=== PATIENT | female | born 1955 | race Caucasian/White ===

== ENCOUNTER → 2024-01-17 14:46 | Outpatient (REF) | payer MEDICARE, SELFPAY | LOC: HWWDC 14:46 | PROVIDERS: ATTENDING PHYSICIAN Family Medicine | DX: Z12.31 Encounter for screening mammogram for malignant neoplasm of breast (principal) | CPT/HCPCS: 77063; 77067 ==

== ENCOUNTER → 2024-05-11 10:48 | Outpatient (REF) | payer MEDICARE, SELFPAY | LOC: RAD 10:48 | PROVIDERS: ATTENDING PHYSICIAN Family Medicine | DX: R53.83 Other fatigue (principal); R06.09 Other forms of dyspnea | CPT/HCPCS: 71046 ==

== ENCOUNTER 2024-05-15 12:37 | Inpatient (IN) | payer MEDICARE, SELFPAY ==
[2024-05-15] VITALS (14 sets, daily range): BP systolic 110–138; BP diastolic 61–92; BMI 40.3
[2024-05-15 07:17] LABS: % Basophils 1.5 % (0-2); % Lymphocytes 21.4 % (20.5-51.1); % Monocytes 8.5 % (1.7-9.3); % Neutrophils 60.6 % (42.2-75.2); Absolute Basophils 0.2 10^3/uL (0-0.2); Absolute Eosinophils 0.8 10^3/uL (0-0.7); Absolute Immature Granulocytes 0.1 10^3/uL (0-0.05); Absolute Lymphocytes 2.6 10^3/uL (1.2-3.4); Absolute Neutrophils 7.2 10^3/uL (1.4-6.5); Hematocrit 36.2 % (37.0-47.0); Hemoglobin 12.1 g/dL (12.0-16.0); Mean Corp Hgb Conc. 33.4 g/dL (33.0-37.0); Mean Corpuscular Volume 89.8 fL (81.0-99.0); Mean Platelet Volume 10.3 fL (7.4-10.4); Nucleated Red Blood Cells % 0.3 %; Platelet Count 339 10^3/uL (130-400); Red Blood Cell Count 4.03 10^6/uL (4.20-5.40); Red Cell Dist. Width 13.6 % (11.5-14.5); White Blood Cell Count 11.9 10^3/uL (4.8-10.8)
[2024-05-15] MEDS: DUONEB 3 ML INH ×3 (07:28→20:44)
[2024-05-15] MEDS: NSS 1000 IV (07:28)
[2024-05-15 07:30] LABS: ALT (SGPT) 16 U/L (0-35); AST (SGOT) 20 U/L (14-36); Albumin 3.6 g/dl (3.5-5.0); Alkaline Phosphatase 83 U/L (38-126); Blood Urea Nitrogen 15 mg/dl (7-17); Calcium 9.2 mg/dl (8.4-10.2); Carbon Dioxide 22 mmol/L (22-30); Chloride 106 mmol/L (98-107); Estimated Creatinine Clearance 70 ml/min; Glucose 199 mg/dl (70-99); Sodium 139 mmol/L (135-145); eGFR > 60.00
--- NOTE | 2024-05-15 07:46 | ED.GENMED ---
History of Present Illness
General
Chief Complaint: Breathing Problem
Source: patient, records and physician
Exam Limitations: none
Time Seen by Provider: 05/15/24 07:07
Nursing documentation reviewed up to this point in time: agreed with
History of Present Illness
History of Present Illness:
Patient is a 68-year-old female Who presents to the emergency department with worsening dyspnea after being diagnosed with a right infrahilar pneumonia on May 11 and at that time started on doxycycline and Cefpodoxime. Patient has a
nonproductive cough. Patient denies fever or chills. Patient short of breath at rest and with any exertion. Patient denies chest pain. Patient admits decreased appetite but no nausea, vomiting or diarrhea. Patient denies any leg pain or
swelling.
Past History
Past History
ED Past Medical History: None
ED Past Surgical History: None
Patient has exhibited threatening behavior?: No
Social History
Tobacco: Smoker
Living: alone
Employment: Employed
Review of Systems
Review of Systems
All Other Systems: ROS reviewed and negative except as documented in HPI and ROS
Constitutional: Reports fatigue; Denies fever or chills
EENT: Reports no symptoms
Respiratory: Reports cough and trouble breathing
Cardiac: Reports no symptoms
ABD/GI: Reports no symptoms
: Reports no symptoms
Musculoskeletal: Reports no symptoms
Skin: Reports no symptoms
Neurological: Reports no symptoms
Hematologic/Lymphatic: Reports no symptoms
Phy Exam
Physical Exam
Physical Exam:
Physical Exam
General: mild distress, alert and appropriate, well nourished, well hydrated
HENT: Normocephalic, supple with no lymphadenopathy, no thyromegaly
Eyes: Clear sclera, conjuctiva without injection
Heart: Regular rhythm and rate. No S3, S4. No murmur. No NVD
Lungs: mild respiratory distress, no stridor, lung sounds are coarse with scattered rhonchi and end expiratory wheezes but otherwise equal bilaterally
Abdomen: Soft, nontender, no organomegaly, no CVA tenderness, BS good
Neuro: Alert and oriented x 3, CN II - XII intact, no motor focality, no cerebellar dysfunction
Skin: no rash
Psychiatric: well kept. interactive and cooperative
Extremities: No edema, cyanosis, tenderness
Scores
Heart Failure Risk
Heart Failure Risk Score: Not Applicable
Heart Score for Chest Pain Patients
STEMI patient?: Not applicable
Withdrawal Assessment of Alcohol
Withdrawal Assessment Completed?: Not applicable
Course
Orders/Labs/Results
Orders:
Orders
05/15/24 07:06
CMP [Comprehensive Metabolic Panel] Urgent
Complete Blood Count/With Diff Urgent
05/15/24 07:13
0.9% Sodium Chloride 1000 ml [Nss] 1,000 ml IV BOLUS
Ipratropium/Albuterol Sulfate [Duoneb] 3 ml INH R NOW STA
05/15/24 07:26
Lactic Acid Q4H
Comment: CANCEL 2nd LACTIC ACID IF 1st LACTIC ACID IS LESS THAN 2
Blood Culture Urgent
RUSTY Source: Blood/Venous
Specimen Description:
05/15/24 07:43
Procalcitonin Urgent
PCT Algorithmm Indication: Respiratory
Blood Culture Routine
RUSTY Source: Blood/Venous
Specimen Description:
05/15/24 07:46
Mag Hydrox/Al Hydrox/Simeth [Maalox] 30 ml PO NOW STA
Pantoprazole [Protonix IV] 80 mg IV NOW STA
Sucralfate [Carafate] 1 gram PO NOW STA
05/15/24 08:04
Electrocardiogram (*1) Urgent
Reason for Study: Shortness of Breath
EKG- Treatment ONCE
Abnormal Lab Results
05/15/24
07:06
WBC 11.9 H 10^3/uL
(4.8-10.8)
RBC 4.03 L 10^6/uL
(4.20-5.40)
Hct 36.2 L %
(37.0-47.0)
Abs Immat Gran (auto) 0.1 H 10^3/uL
(0-0.05)
Absolute Neuts (auto) 7.2 H 10^3/uL
(1.4-6.5)
Absolute Monos (auto) 1.0 H 10^3/uL
(0.1-0.6)
Absolute Eos (auto) 0.8 H 10^3/uL
(0-0.7)
Immature Gran % 1.0 H %
(0-0.5)
Eosinophils % 7.0 H %
(0-6)
Glucose 199 H mg/dl
(70-99)
Total Protein 6.0 L g/dl
(6.3-8.2)
05/15/24 07:06
05/15/24 07:06
Vital Signs
Initial and Last Documented VS:
Initial Vital Signs
Pulse Resp BP Pulse Ox
102 24 122/76 92
05/15/24 06:57 05/15/24 06:57 05/15/24 06:57 05/15/24 06:57
Last Documented Vital Signs
Pulse Resp BP Pulse Ox
89 18 127/92 92
05/15/24 08:30 05/15/24 08:30 05/15/24 08:00 05/15/24 08:30
*Radiology
Radiology exam reviewed: other (Reviewed the patient's chest x-ray from May 11 which was interpreted as a right hilar infiltrate)
*Pulse Oximetry
Patient hypoxic: yes
Comment: Patient resting on room air is 90%
*Critical Care Note
Total Time (30-74mins, 75-104mins- exclusive of procedures): Not Applicable
Update Note
Update Note:
Patient is proved to be resistant to outpatient antibiotics. Patient will be admitted.
ED Attending Note
-
Portions of this chart may have been created with voice recognition software.� Occasional wrong word or��sound alike� substitutions may have occurred due to the inherent limitations of voice recognition software.
Discharge Plan
Departure
Patient Disposition: Home (Routine Discharge)
Date of Disposition: 05/15/24
Time of Disposition: 10:18
Admit to: Telemetry
Admit to doctor: Hospitalist
Patient with high blood pressure during this ER visit?: No
Condition: Serious
Covid-19: Not Applicable
Discharge Problem:
Pneumonia, Acute respiratory insufficiency, Outpatient antibiotic failure
Referrals:
Mady Quarles MD [Family Provider] -
Interventions
Interventions:
*Risk Screen - Suicide Last Done: 05/15/24 06:59
*General Assessment Last Done: 05/15/24 06:59
*Neglect/Abuse Screening Last Done: 05/15/24 06:59
ED- Fall Risk Assessment Last Done: 05/15/24 07:05
*ED COVID-19 Vaccine History Last Done: 05/15/24 06:59
ED- Cardiac Assessment Last Done: 05/15/24 07:17
ED- Pulmonary Assessment Last Done: 05/15/24 07:17
Discharge Date and Time
Print Language: SOMALI
[2024-05-15] MEDS: MAALOX 30 ML PO (07:53)
[2024-05-15] MEDS: CARAFATE 1 GRAM PO (07:53)
[2024-05-15 07:54] LABS: Lactic Acid 1.3 mmol/L (0.7-2.0)
[2024-05-15] MEDS: PROTONIX IV 80 MG IV (07:54)
[2024-05-15 08:28] LABS: Procalcitonin < 0.05 ng/ml (0.0-0.25)
[2024-05-15] MEDS: MAXIPIME 2000 MG IV (11:16)
[2024-05-15] MEDS: NICODERM TRANSDERMAL 14 MG TRANSDERM (11:17)
[2024-05-15] MEDS: DECADRON 10 MG IV (11:17)
--- NOTE | 2024-05-15 12:20 | HPS.HSE ---
Family Physician
-
Family Physician: Mady Quarles MD
Chief Complaint
-
Shortness of breath
History of Present Illness
68-year-old female past medical history as below who is presenting from home with shortness of breath. Patient says she recently was visiting [place] and after returning she started feeling fatigue and weak. Underwent outpatient chest x-ray
was found to have pneumonia and was started on antibiotics. States she took approximately 2.5 days of p.o. antibiotics and still was not feeling better and decided to come into the ER. States of initial productive cough which is clearing up.
States of some indigestion. Denies any chest pain. States some mild shortness of breath. States of shortness of breath with talking at times. Smokes 1/2 pack a day for the past 20 years or so. States never been officially diagnosed with COPD
but understand negative outcome of continuous tobacco abuse. Denies any chest pain at rest or exertion. Denies any prior cardiac history. Denies any lower extremity swelling PND orthopnea. Denies any nausea vomiting diarrhea. Denies any fevers
or chills at home. Denies any headache vision problems neck pain.
Medical History
Past Medical History
Past Medical History: Reports Other
Additional Past Medical History:
Hyperlipidemia
Morbid obesity due to excess calories
Tobacco abuse daily basis
Murmur
History of diverticulitis
Diabetes mellitus type 2
Depression
Past Surgical History: Reports Other
Additional Past Surgical History:
Bladder left
D&C
Laparoscopic appendectomy
Social History
Tobacco: Smoker (Half a pack a day for the past 20 years)
Alcohol: Occasional
Family History
Family History: Not pertinent
Allergies / Home Medications
Allergies reflects when Allergies were last updated in [employer].
Home Medications with original date entered in [employer]
Allergy/Medication List:
Allergies
Allergy/AdvReac Type Severity Reaction Status Date / Time
Sulfa (Sulfonamide Allergy Shortness Verified 05/15/24 07:04
Antibiotics) of Breath
Home Medications
Lactobac no.2-Bifidobac no.1-S. thermo 112.5 billion cell capsule (Visbiome) 1 cap PO DAILY Gastrointestinal Issue 05/15/24
albuterol sulfate 90 mcg/actuation aerosol inhaler 2 puff inhalation R Q6HPRN PRN sob 05/15/24
atorvastatin 20 mg tablet (Lipitor) 20 mg PO QPM High Cholesterol 05/15/24
cefpodoxime 200 mg tablet 200 mg PO BID Infection 05/15/24
cholecalciferol (vitamin D3) 25 mcg (1,000 unit) tablet (Vitamin D3) 25 mcg PO DAILY Supplement 05/15/24
doxycycline hyclate 100 mg capsule 100 mg PO BID Infection 05/15/24
duloxetine 30 mg capsule,delayed release (Cymbalta) 90 mg PO DAILY Mental Health 05/15/24
naproxen sodium 220 mg tablet (Aleve) 220 mg PO BIDPRN PRN mild pain 05/15/24
tirzepatide 2.5 mg/0.5 mL subcutaneous pen injector (Mounjaro) 2.5 mg SC SA endocrine condition 05/15/24
Review of Systems
-
History Source: Patient
Constitutional: Reports Fatigue
EENT: Reports Sore Throat
Respiratory: Reports See HPI
Cardiac: Reports No Symptoms
Abdomen/GI: Reports No Symptoms and See HPI
: Reports No Symptoms
Musculoskeletal: Reports No Symptoms
Skin: Reports No Symptoms
Neurological: Reports No Symptoms
Endocrine: Reports No Symptoms
Hematologic/Lymphatic: Reports No Symptoms
Psych: Reports No Symptoms
Physical Exam
Vital Signs
Vital Signs
Pulse Resp BP Pulse Ox
96 26 120/85 92
05/15/24 11:15 05/15/24 11:15 05/15/24 11:00 05/15/24 11:15
Physical Exam
General: Well Developed, Well Nourished, No Apparent Distress and Morbidly Obese
HEENT: NormoCephalic, Moist mucous membranes and Atraumatic
Respiratory: Decreased Breath Sounds (Not much aeration bilaterally)
Cardiac: S1/S2, Regular Rhythm and Murmur; No Rub
GI: Soft, Non Tender, Non Distended and Normal Bowel Sounds; No Organomegaly
Rectal: Deferred by Provider
Musculoskeletal: No Clubbing, No Cyanosis and No Edema
Skin: No Rash
Neuro: Awake, Oriented, No Motor Deficits and Nonfocal/grossly intact
Psych: Calm
Laboratory Results
-
05/15/24 07:06
05/15/24 07:06
Laboratory Results
Lactic Acid Cancelled 05/15/24 11:15
Total Bilirubin 1.0 mg/dl (0.2-1.3) 05/15/24 07:06
AST 20 U/L (14-36) 05/15/24 07:06
ALT 16 U/L (0-35) 05/15/24 07:06
Alkaline Phosphatase 83 U/L (38-126) 05/15/24 07:06
Impression/Plan
-
#Shortness of breath likely multifactorial secondary bronchitis/suspected acute COPD exacerbation and pneumonia/pneumonitis
Chest x-ray on 05/11 with infiltrate noted. Mild elevation of right hemidiaphragm. Mild cardiomegaly stable.
With recent travel will check CT PE
Tachycardia noted
Procalcitonin negative. Will continue antibiotics until CT results to assess for further infiltration
Start patient on IV steroids 6 Q12 for now
Bronchodilators
Sputum sample
Check COVID
Recommended complete tobacco cessation
Lactic acid within normal limits
Check troponin and proBNP
EKG with normal sinus rhythm. Ventricular rate of 92. QTc of 494. No significant ST or T wave changes noted.
#Diabetes mellitus
Glucose of 190 on BMP
Check A1c and insulin sliding scale for now
ADA
#Hyperlipidemia
Continue statin
Tobacco abuse daily basis
Counseled on cessation
Nicotine patch
Morbid obesity due to excess calories
Affects all aspects of medical care
Counseled on weight loss after resolution of acute illness
History of murmur
Nonrheumatic mitral valve insufficiency
History of pulmonary nodules
DVT prophylaxis with Lovenox
Full code
I spent a total of 78 minutes with the patient or on the floor. More than 50% of this time involved counseling and coordination of care.
[2024-05-15 13:36] LABS: Glucose - Point of Care 184 mg/dl (70-99)
[2024-05-15 14:21] LABS: Troponin I 0.042 ng/ml
--- NOTE | 2024-05-15 14:30 | PTCARENOTE ---
Pt's Troponin 0.042. Pt denies Chest Pain. MD made aware. Order for Aspirin 325mg given. See MAR. Will trend Troponin. No addiitonal orders given at this time. Pt updated on all above. Will continue to monitor.
[2024-05-15] MEDS: ASPIRIN ENTERIC COATED 325 MG PO (15:49)
[2024-05-15 16:59] LABS: COVID-19 Antigen Negative (Negative)
[2024-05-15] MEDS: LIPITOR 20 MG PO (17:03)
[2024-05-15] MEDS: LASIX 40 MG IV (17:03)
[2024-05-15] MEDS: DECADRON 6 MG IV (17:04)
[2024-05-15] MEDS: LOVENOX 40 MG SC (17:05)
[2024-05-15 17:13] LABS: NT-proBNP 4750 pg/ml
--- NOTE | 2024-05-15 17:30 | PTCARENOTE ---
Received patient at 1730. Patient aaoX3, NO C/O PAIN. Patient ambulated from stretcher to bathroom. Patient RESENDEZ, 91-92% RA. Call golden in reach.
[2024-05-15 18:39] LABS: Glucose - Point of Care 290 mg/dl (70-99)
[2024-05-15] MEDS: NOVOLOG FLEXPEN-LOW RESISTANCE 3 UNITS SC (18:54)
[2024-05-15] MEDS: VIBRAMYCIN 100 MG PO (21:14)
[2024-05-15] MEDS: ROCEPHIN 1000 MG IV (21:15)
[2024-05-15] MEDS: STERILE WATER FOR INJECTION 10 ML IV (21:15)
[2024-05-15] MEDS: MUCINEX 600 MG PO (21:17)
[2024-05-15 21:34] LABS: Glucose - Point of Care 252 mg/dl (70-99)
[2024-05-15 22:02] LABS: Troponin I 0.029 ng/ml
[2024-05-16 02:39] VITALS: BP 123/75
--- NOTE | 2024-05-16 03:26 | W.PN.UPDATE ---
Update Note
Progress Note Update
HR elevated up to 160's non-sustaining, Patient asymptomatic. will order labs in AM,
[2024-05-16 04:41] LABS: % Basophils 0.2 % (0-2); % Eosinophils 0.1 % (0-6); % Immature Granulocytes 1.2 % (0-0.5); % Monocytes 6.4 % (1.7-9.3); % Neutrophils 77.1 % (42.2-75.2); Absolute Immature Granulocytes 0.1 10^3/uL (0-0.05); Absolute Lymphocytes 1.5 10^3/uL (1.2-3.4); Absolute Monocytes 0.7 10^3/uL (0.1-0.6); Absolute Neutrophils 7.9 10^3/uL (1.4-6.5); Hematocrit 32.7 % (37.0-47.0); Hemoglobin 10.9 g/dL (12.0-16.0); Mean Corp Hgb Conc. 33.3 g/dL (33.0-37.0); Mean Corpuscular Hgb 29.9 pg (27.0-31.0); Mean Corpuscular Volume 89.8 fL (81.0-99.0); Mean Platelet Volume 10.3 fL (7.4-10.4); Nucleated Red Blood Cells % 0 %; Platelet Count 310 10^3/uL (130-400); Red Blood Cell Count 3.64 10^6/uL (4.20-5.40); Red Cell Dist. Width 13.7 % (11.5-14.5); White Blood Cell Count 10.3 10^3/uL (4.8-10.8)
[2024-05-16 05:00] LABS: Blood Urea Nitrogen 17 mg/dl (7-17); Carbon Dioxide 27 mmol/L (22-30); Chloride 103 mmol/L (98-107); Estimated Creatinine Clearance 70 ml/min; Glucose 210 mg/dl (70-99); Magnesium 2.2 mg/dl (1.6-2.3); Potassium 4.8 mmol/L (3.5-5.1); Sodium 140 mmol/L (135-145); eGFR > 60.00
[2024-05-16 05:12] LABS: Troponin I 0.018 ng/ml
[2024-05-16] MEDS: TESSALON PERLES 100 MG PO (05:19)
[2024-05-16] MEDS: DECADRON 6 MG IV (05:20)
[2024-05-16 05:48] LABS: Hepatitis C Antibody Negative (Negative)
[2024-05-16] MEDS: DUONEB 3 ML INH (05:59)
[2024-05-16 06:00] VITALS: BMI 39.8
[2024-05-16 07:15] VITALS: BP 130/76
[2024-05-16 07:37] LABS: Glucose - Point of Care 212 mg/dl (70-99)
--- NOTE | 2024-05-16 08:12 | W.PN.HOSP.TC ---
Today's Communication/Plan
-
IV lasix
ECHO
Cards
dc abx and observe
Assessment / Plan
Assessment / Plan
#Shortness of breath likely 2/2 new onset of AECHF
#Nonischemic myocardial injury likely secondary to CHF`
Chest x-ray on 05/11 with infiltrate noted. Mild elevation of right hemidiaphragm. Mild cardiomegaly stable.
CT chest negative for pulmonary embolism. Did show bilateral pleural effusions and pulmonary edema.
Tachycardia noted
Procalcitonin negative. WBC normal and thus DC antibiotics.
DC further steroids.
Bronchodilators prn only.
Sputum sample
COVID-negative.
Recommended complete tobacco cessation
Lactic acid within normal limits
proBNP elevated 4750. Troponin down trended.
Check ECHO
Lasix 40mg Daily .May need to further upttitrate based on response.
Daily Weight. Strict. I/O.
Consult cardiology
#Bilateral pleural effusions likely 2/2 AECHF
Will ask IRAD for thoracentesis
#Diabetes mellitus
Check A1c and insulin sliding scale for now
ADA
#Hyperlipidemia
Continue statin
Tobacco abuse daily basis
Counseled on cessation
Nicotine patch
Morbid obesity due to excess calories
Affects all aspects of medical care
Counseled on weight loss after resolution of acute illness
History of murmur
Nonrheumatic mitral valve insufficiency
History of pulmonary nodules
DVT prophylaxis with Lovenox
Full code
Anticipated Discharge: > 48 hours
Subjective/Interval History
-
Date of Service: May 16, 2024
states of tremors from duoneb
mild improvement in breathing
Objective Data
-
Labs:
Laboratory Results
05/16/24
04:24
WBC 10.3
Hgb 10.9 L
Hct 32.7 L
Plt Count 310
Sodium 140
Potassium 4.8
Chloride 103
Carbon Dioxide 27
BUN 17
Creatinine 0.9
Glucose 210 H
Calcium 9.0
Vital Signs:
Vital Signs
Temp Pulse Resp BP Pulse Ox
97.8 F 100 16 123/75 95
05/16/24 02:39 05/16/24 06:02 05/16/24 06:02 05/16/24 02:39 05/16/24 06:02
I&O
05/15/24 05/16/24 05/17/24
06:59 06:59 06:59
Intake Total 480 / 480
Output Total 350 / 350
Balance 130 / 130
Physical Exam
-
General: Well Developed and No Apparent Distress
HEENT: Normocephalic, Atraumatic and Moist Mucous Membranes
Respiratory: Non Labored Respirations and Decreased Breath Sounds (R>L); Negative Wheezes or Crackles
Cardiac: Regular Rhythm, S1/S2 and Murmur; Negative Rub or Gallop
GI: Soft, Nontender, Nondistended and Normal Bowel Sounds; Negative Organomegaly
Rectal: Deferred by Provider
Musculoskeletal: No Clubbing, No Cyanosis and No Edema
Skin: Negative Rash
Neuro: Awake, Alert, Oriented, AO x 3, No Motor Deficits and Nonfocal/Grossly Intact
Psych: Calm
Data Reviewed
-
Total Time Spent with Patient (in minutes): 62
[2024-05-16 09:04] LABS: Glycohemoglobin (HgbA1c) 6.6 % (4.0-5.6)
[2024-05-16] MEDS: LASIX 40 MG IV ×2 (10:45→17:07)
[2024-05-16] MEDS: ASPIR LOW (ENTERIC COATED) 81 MG PO (10:46)
[2024-05-16] MEDS: CYMBALTA DELAYED RELEASE 90 MG PO (10:46)
[2024-05-16] MEDS: MUCINEX 600 MG PO ×2 (10:47→20:53)
[2024-05-16] MEDS: VISBIOME 1 CAP PO (10:48)
[2024-05-16] MEDS: NICODERM TRANSDERMAL 14 MG TRANSDERM (10:48)
[2024-05-16] MEDS: VITAMIN D3 (cholecalciferol) 25 MCG PO (10:49)
[2024-05-16] MEDS: NOVOLOG FLEXPEN-LOW RESISTANCE 2 UNITS SC ×2 (11:11→17:09)
[2024-05-16] MEDS: VIBRAMYCIN PO (11:14)
[2024-05-16 13:23] LABS: Glucose - Point of Care 179 mg/dl (70-99)
[2024-05-16] MEDS: NOVOLOG FLEXPEN-LOW RESISTANCE 1 UNITS SC (13:33)
--- NOTE | 2024-05-16 13:36 | CON.CAR ---
Addendum entered and electronically signed by Antoine Valentino MD 05/16/24 17:25:
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 Initially treated for PNA as outpatient: did not improved, so presented to ED. Exam with RRR, no murmurs, trace edema. CT PE was neg for PNA and PE; but
there was evidence of pulmonary edema. Tele: NSR, brief SVT runs.
Suspect acute HFPEF. IV lasix, echo. Case mgmt consult for SGLT2i.
SVT, paroxysmal. She does feel occasional palps. Add diltiazem.
Original Note:
Consultation
Consultation Request
Date/Time Consultation Requested: 05/16/24951
Date/Time Consultation Performed: 05/16/24 6767
Requesting Provider: Dr. Poole
Performing Provider: Cheli MITCHELL for
Reason for Consultation: CHF
Medical History
-
Chief Complaint: SOB
History of Present Illness:
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 It was originally felt to be PNA and she was started on ABX. However, it got worse
and she came to the hospital for evaluation. She reports non-productive cough. Denies fever or chills. Does report orthopnea. She is felt to have acute HF and therefore we are consulted. She is s/p IV lasix and feeling improved. She has b/l pleural
effusions, but not enough fluid for thoracentesis.
Past Medical History
Past Medical History: Asthma, Hypercholesterolemia, NIDDM and Other (as above)
Social History
Tobacco: Smoker
Family History
Family History: Reviewed & Not Pertinent
Allergies / Home Medications
Allergy/AdvReac Type Severity Reaction Status Date / Time
Sulfa (Sulfonamide Allergy Shortness Verified 05/15/24 07:04
Antibiotics) of Breath
�Medication �Instructions �Recorded �Confirmed �Type
Lactobac no.2-Bifidobac no.1-S. 1 cap PO DAILY Gastrointestinal 05/15/24 05/15/24 History
thermo 112.5 billion cell capsule Issue
(Visbiome)
albuterol sulfate 90 mcg/actuation 2 puff inhalation R Q6HPRN PRN sob 05/15/24 05/15/24 History
aerosol inhaler
atorvastatin 20 mg tablet (Lipitor) 20 mg PO QPM High Cholesterol 05/15/24 05/15/24 History
cefpodoxime 200 mg tablet 200 mg PO BID Infection 05/15/24 05/15/24 History
cholecalciferol (vitamin D3) 25 25 mcg PO DAILY Supplement 05/15/24 05/15/24 History
mcg (1,000 unit) tablet (Vitamin
D3)
doxycycline hyclate 100 mg capsule 100 mg PO BID Infection 05/15/24 05/15/24 History
duloxetine 30 mg capsule,delayed 90 mg PO DAILY Mental Health 05/15/24 05/15/24 History
release (Cymbalta)
naproxen sodium 220 mg tablet 220 mg PO BIDPRN PRN mild pain 05/15/24 05/15/24 History
(Aleve)
tirzepatide 2.5 mg/0.5 mL 2.5 mg SC SA endocrine condition 05/15/24 05/15/24 History
subcutaneous pen injector
(Alan)
Review of Systems
-
History Source: Patient
All other systems: Negative unless noted
Respiratory: Cough and Trouble Breathing
Physical Exam
Vital Signs
Temp Pulse Resp BP Pulse Ox
98 F 101 18 130/76 95
05/16/24 07:15 05/16/24 10:45 05/16/24 07:15 05/16/24 10:45 05/16/24 07:15
Lab Results
05/16/24 04:24
05/16/24 04:24
Troponin I 0.018 ng/ml D 05/16/24 04:24
Jea-E-Dafgqrhdhum Pept 4750 pg/ml 05/15/24 13:31
Physical Exam
General: Well Developed and No Apparent Distress
HEENT: Normocephalic and Anicteric
Respiratory: Crackles (b/l bases)
Cardiac: Regular Rhythm
Musculoskeletal: No Edema
Skin: Warm and Dry
Neuro: AO x 3
Psych: Calm
Impression / Plan
-
Acute HFpEF:
-as of echo 2022. Updated echo is pending.
-Agree with IV lasix, will adjust to BID- this requires intensive monitoring
-sodium/fluid limitations and CHF education
pSVT:
-noted on monitor, she reports palpitations at times
-will add rate-control agent
Obesity:
-improving with Mounjaro per patient
Tobacco use:
-recommended total cessation
-she is wearing a patch
Data Reviewed
-
EKG: Tracing Personally Visualized and interpreted (NSR, LAD)
CT Scan: Report Reviewed by me (Chest CT: Limited by respiratory motion artifacts. No pulmonary embolus is identified. Moderate CHF with bilateral pleural effusions, right greater than left. Bilateral subcentimeter nodules. Aberrant right subclavian
artery, normal anatomic variation.)
Medical Tests (Nuc Med, Echo etc): Report Reviewed by me (08/02/23: Normal left ventricular size, wall thickness and systolic function. LV ejection fraction is 60-65%. Mild to moderate mitral regurgitation. )
Labs: Labs Reviewed by me
--- NOTE | 2024-05-16 15:45 | CM ---
career services manager reviewed patient's chart and met with patient and patient lives alone in a 2 story home, patient is independent with adl's and ambulation, no dme, patient drives, plan is to home when stable no needs.
Pharmacy: [facility]
PCP: Dr. Quarles
Plan; Home when stable, no needs.
[2024-05-16 15:58] VITALS: BP 128/73
[2024-05-16 16:37] LABS: Glucose - Point of Care 219 mg/dl (70-99)
[2024-05-16] MEDS: CARDIZEM CD 120 MG PO (17:08)
[2024-05-16] MEDS: LOVENOX 40 MG SC (17:10)
[2024-05-16] MEDS: LIPITOR 20 MG PO (17:10)
[2024-05-16 19:43] VITALS: BP 107/62
[2024-05-16 21:27] LABS: Glucose - Point of Care 172 mg/dl (70-99)
[2024-05-16 23:21] VITALS: BP 105/68
[2024-05-17 02:57] VITALS: BP 100/67
[2024-05-17 06:00] VITALS: BMI 38.7
[2024-05-17 07:21] LABS: % Basophils 0.3 % (0-2); % Eosinophils 0.4 % (0-6); % Immature Granulocytes 0.9 % (0-0.5); % Lymphocytes 18.4 % (20.5-51.1); % Monocytes 9.8 % (1.7-9.3); % Neutrophils 70.2 % (42.2-75.2); Absolute Eosinophils 0.1 10^3/uL (0-0.7); Absolute Immature Granulocytes 0.1 10^3/uL (0-0.05); Absolute Lymphocytes 2.9 10^3/uL (1.2-3.4); Absolute Monocytes 1.6 10^3/uL (0.1-0.6); Absolute Neutrophils 11.2 10^3/uL (1.4-6.5); Hematocrit 33.4 % (37.0-47.0); Hemoglobin 11.2 g/dL (12.0-16.0); Mean Corp Hgb Conc. 33.5 g/dL (33.0-37.0); Mean Corpuscular Hgb 30.4 pg (27.0-31.0); Mean Corpuscular Volume 90.5 fL (81.0-99.0); Mean Platelet Volume 10.7 fL (7.4-10.4); Nucleated Red Blood Cells % 0.1 %; Platelet Count 348 10^3/uL (130-400); Red Blood Cell Count 3.69 10^6/uL (4.20-5.40); White Blood Cell Count 15.9 10^3/uL (4.8-10.8)
[2024-05-17 07:26] LABS: Glucose - Point of Care 159 mg/dl (70-99)
[2024-05-17 07:30] VITALS: BP 100/70
[2024-05-17 07:42] LABS: Blood Urea Nitrogen 29 mg/dl (7-17); Calcium 9.1 mg/dl (8.4-10.2); Carbon Dioxide 30 mmol/L (22-30); Chloride 99 mmol/L (98-107); Estimated Creatinine Clearance 56 ml/min; Glucose 153 mg/dl (70-99); Magnesium 2.5 mg/dl (1.6-2.3); Potassium 4.1 mmol/L (3.5-5.1); Sodium 139 mmol/L (135-145); eGFR 54.39
--- NOTE | 2024-05-17 09:22 | W.PN.CD ---
Today's Communication / Plan
-
continue iv diuresis with lasix bid
start farxiga 10mg in am
Impression / Plan
-
Acute HFpEF with right sided systolic dysfunction.
-Weight has fallen from 105kg to 102.1 kg, but remains volume overloaded on exam (elevated jvp, bibasilar rale)
-Agree with IV lasix BID- this requires intensive monitoring
-sodium/fluid limitations and CHF education
-start farxiga in the am
-of note pe ruled out on admission
PHTN
-likely 2/2 to diastolic failure, but with pulmonary disease and rv hk, may be some pulmonary etiology as well
-reassess when euvolemic.
pSVT:
-noted on monitor, she reports palpitations at times
-?hallucination with diltiazem.
-will stop and monitor without treatment at this time.
Obesity:
-improving with Mounjaro per patient
Tobacco use:
-recommended total cessation
-she is wearing a patch
Subjective:
still with sob but improving
Data:
echo 05/16/24:
Normal left ventricular size and systolic function.
Stage III diastolic dysfunction suggestive of restrictive filling pattern and
increased filling pressures.
Normal right ventricular size with hypokinesis of the free wall.
Mild to moderate mitral regurgitation, may be underestimated due to acoustic
shadowing.
Moderate pulmonary hypertension.
Trivial pericardial effusion. Pleural effusion present.
-
Compared to the prior echo images on 08/02/23, the right ventricular systolic
function is now depressed. Moderate pulmonary hypertension is now seen.
-
Contacted ordering physician regarding the new RV dysfunction 05/16/24 4:55 PM.,
?consider PE.
Physical Exam
Vital Signs/Labs
Vital Signs
Temp Pulse Resp BP Pulse Ox
97.7 F 89 18 100/67 93
05/17/24 02:57 05/17/24 02:57 05/17/24 02:57 05/17/24 02:57 05/17/24 02:57
05/16/24 05/17/24 05/18/24
06:59 06:59 06:59
Actual Weight 105.052 kg 102.172 kg
05/17/24 06:21
05/17/24 06:21
Magnesium 2.5 mg/dl (1.6-2.3) H 05/17/24 06:21
05/15/24
13:31
Ovl-N-Ngfyexdlixh Pept 4750
LAB Results
05/15/24 05/15/24 05/16/24
13:31 21:30 01:13
Troponin I 0.042 H* 0.029 D Cancelled
05/16/24
04:24
Troponin I 0.018 D
Physical Exam
Constitutional: No acute distress
Cardiovascular: Rhythm & rate is regular, Pedal edema is absent and JVD present (14cm H20)
Respiratory: Respiratory effort normal and Crackles Present (bibasilar)
Neuro/Psych: AO x 3
Data Reviewed
-
Date of Service: May 17, 2024
Medical Decision Making: Review of Case with other Provider (Dr cobos continue diuresis)
EKG: Other (brief psvt)
--- NOTE | 2024-05-17 10:37 | CM ---
Cost of Farxiga 10mg daily is $129.50 per month and cost of Jardiance is 135.91 per month. Cardiology made aware.
Plan; Home when stable, will provide coupons depending on medication.
[2024-05-17] MEDS: NOVOLOG FLEXPEN-LOW RESISTANCE 1 UNITS SC ×3 (11:12→17:28)
[2024-05-17] MEDS: ASPIR LOW (ENTERIC COATED) 81 MG PO (11:13)
[2024-05-17] MEDS: CYMBALTA DELAYED RELEASE 90 MG PO (11:13)
[2024-05-17] MEDS: CARDIZEM CD PO (11:15)
[2024-05-17] MEDS: LASIX 40 MG IV ×2 (11:15→17:27)
[2024-05-17] MEDS: VITAMIN D3 (cholecalciferol) 25 MCG PO (11:16)
[2024-05-17] MEDS: VISBIOME 1 CAP PO (11:16)
[2024-05-17] MEDS: MUCINEX 600 MG PO (11:16)
[2024-05-17] MEDS: NICODERM TRANSDERMAL 14 MG TRANSDERM (11:17)
--- NOTE | 2024-05-17 11:34 | W.PN.HOSP.TC ---
Today's Communication/Plan
-
Aggressive IV Lasix and close monitoring
Trend creatinine
Farxiga in the morning
Assessment / Plan
Assessment / Plan
#Shortness of breath likely 2/2 new onset of acute HFpEF
#Nonischemic myocardial injury likely secondary to CHF`
Chest x-ray on 05/11 with infiltrate noted. Mild elevation of right hemidiaphragm. Mild cardiomegaly stable.
CT chest negative for pulmonary embolism. Did show bilateral pleural effusions and pulmonary edema.
Tachycardia noted
Procalcitonin negative. WBC normal and thus DC antibiotics.
DC further steroids.
Bronchodilators prn only.
Sputum sample
COVID-negative.
Recommended complete tobacco cessation
Lactic acid within normal limits
proBNP elevated 4750. Troponin down trended.
Patient prior PFTs reviewed and there are some suspicion for interstitial lung disease but nonobstructive.
Echo with normal EF and function. Stage III diastolic dysfunction suggestive of restrictive filling pattern and increased filling pressure. Normal right ventricular size with hypokinesis of the free wall. Mild to moderate mitral regurgitation.
Moderate pulmonary hypertension. Trivial pericardial effusion. Pleural effusion present.
Lasix 40 mg IV twice daily.
Daily Weight. Strict. I/O. Plan to start Farxiga in the morning.
Consult cardiology
#Bilateral pleural effusions likely 2/2 AECHF
Not enough fluid for Thora.
# Pulmonary hypertension
Likely secondary to heart failure
Recommend outpatient sleep study
# Elevated creatinine likely secondary diuresis
Continue trend creatinine for now
# SVT
-Started on Cardizem however stopped as? Hallucinations reported
-Per cardiology monitor off meds for now
#Diabetes mellitus and morbid obesity
iss.
on moounjaro
a1c at 6.6
#Hyperlipidemia
Continue statin
Tobacco abuse daily basis
Counseled on cessation
Nicotine patch
Morbid obesity due to excess calories
Affects all aspects of medical care
Counseled on weight loss after resolution of acute illness
History of murmur
Nonrheumatic mitral valve insufficiency
History of pulmonary nodules
Leukocytosis likely 2/2 steorids
steroids has been stopped
DVT prophylaxis with Lovenox
Full code
Anticipated Discharge: > 48 hours
Subjective/Interval History
-
Date of Service: May 17, 2024
states of passing increasing amount of urine
Objective Data
-
Labs:
Laboratory Results
05/17/24
06:21
WBC 15.9 H
Hgb 11.2 L
Hct 33.4 L
Plt Count 348
Sodium 139
Potassium 4.1
Chloride 99
Carbon Dioxide 30
BUN 29 H
Creatinine 1.1 H
Glucose 153 H
Calcium 9.1
Vital Signs:
Vital Signs
Temp Pulse Resp BP Pulse Ox
97.6 F 90 18 104/61 96
05/17/24 07:30 05/17/24 11:15 05/17/24 07:30 05/17/24 11:15 05/17/24 07:30
I&O
05/16/24 05/17/24 05/18/24
06:59 06:59 06:59
Intake Total 480 / 480 780 / 780
Output Total 350 / 350 1150 / 1150
Balance 130 / 130 -370 / -370
Physical Exam
-
General: Well Developed, No Apparent Distress and Morbidly Obese
HEENT: Normocephalic, Atraumatic and Moist Mucous Membranes
Respiratory: Clear to Auscultation (improvement in aeration ) and Non Labored Respirations; Negative Wheezes or Crackles
Cardiac: Regular Rhythm, S1/S2 and Murmur; Negative Rub or Gallop
GI: Soft, Nontender, Nondistended and Normal Bowel Sounds; Negative Organomegaly
Rectal: Deferred by Provider
Musculoskeletal: No Clubbing, No Cyanosis and No Edema
Skin: Negative Rash
Neuro: Awake, Alert, Oriented, AO x 3, No Motor Deficits and Nonfocal/Grossly Intact
Psych: Calm
Data Reviewed
-
Total Time Spent with Patient (in minutes): 56
[2024-05-17 11:51] LABS: Glucose - Point of Care 178 mg/dl (70-99)
[2024-05-17 15:00] VITALS: BP 101/64
[2024-05-17 17:16] LABS: Glucose - Point of Care 198 mg/dl (70-99)
[2024-05-17] MEDS: LIPITOR 20 MG PO (17:28)
[2024-05-17] MEDS: LOVENOX 40 MG SC (17:28)
[2024-05-17 19:57] VITALS: BP 107/66
[2024-05-17] MEDS: MUCINEX PO ×2 (21:16→21:18)
[2024-05-17 21:28] LABS: Glucose - Point of Care 170 mg/dl (70-99)
[2024-05-17 22:51] VITALS: BP 94/51
[2024-05-18 03:28] VITALS: BP 110/60
[2024-05-18 06:00] VITALS: BMI 38.0
[2024-05-18 07:00] VITALS: BP 87/59
[2024-05-18 07:27] LABS: % Basophils 0.7 % (0-2); % Eosinophils 3.5 % (0-6); % Immature Granulocytes 0.9 % (0-0.5); % Lymphocytes 34.9 % (20.5-51.1); % Monocytes 12.5 % (1.7-9.3); % Neutrophils 47.5 % (42.2-75.2); Absolute Basophils 0.1 10^3/uL (0-0.2); Absolute Eosinophils 0.4 10^3/uL (0-0.7); Absolute Immature Granulocytes 0.1 10^3/uL (0-0.05); Absolute Lymphocytes 3.8 10^3/uL (1.2-3.4); Absolute Monocytes 1.3 10^3/uL (0.1-0.6); Absolute Neutrophils 5.1 10^3/uL (1.4-6.5); Hematocrit 35.3 % (37.0-47.0); Hemoglobin 11.8 g/dL (12.0-16.0); Mean Corp Hgb Conc. 33.4 g/dL (33.0-37.0); Mean Corpuscular Hgb 30.2 pg (27.0-31.0); Mean Corpuscular Volume 90.3 fL (81.0-99.0); Mean Platelet Volume 10.5 fL (7.4-10.4); Nucleated Red Blood Cells % 0 %; Platelet Count 298 10^3/uL (130-400); Red Blood Cell Count 3.91 10^6/uL (4.20-5.40); Red Cell Dist. Width 13.9 % (11.5-14.5); White Blood Cell Count 10.7 10^3/uL (4.8-10.8)
[2024-05-18 07:43] LABS: Blood Urea Nitrogen 29 mg/dl (7-17); Calcium 8.8 mg/dl (8.4-10.2); Carbon Dioxide 35 mmol/L (22-30); Chloride 97 mmol/L (98-107); Estimated Creatinine Clearance 61 ml/min; Glucose 138 mg/dl (70-99); Magnesium 2.4 mg/dl (1.6-2.3); Potassium 3.6 mmol/L (3.5-5.1); Sodium 142 mmol/L (135-145); eGFR > 60.00
[2024-05-18 08:40] LABS: Glucose - Point of Care 141 mg/dl (70-99)
[2024-05-18] MEDS: NOVOLOG FLEXPEN-LOW RESISTANCE SC (09:17)
[2024-05-18] MEDS: FARXIGA 10 MG PO (09:18)
[2024-05-18] MEDS: ASPIR LOW (ENTERIC COATED) 81 MG PO (09:18)
[2024-05-18] MEDS: CYMBALTA DELAYED RELEASE 90 MG PO (09:18)
[2024-05-18] MEDS: VISBIOME 1 CAP PO (09:19)
[2024-05-18] MEDS: NICODERM TRANSDERMAL 14 MG TRANSDERM (09:19)
[2024-05-18] MEDS: MUCINEX PO (09:19)
[2024-05-18] MEDS: VITAMIN D3 (cholecalciferol) 25 MCG PO (09:19)
[2024-05-18 09:32] VITALS: BP 101/55
--- NOTE | 2024-05-18 09:51 | W.PN.CD ---
Addendum entered and electronically signed by Enrique Kan MD 05/18/24 13:51:
I saw and examined the patient.
The CURVE SAW OPERATOR's note was reviewed and I agree with the note.
Patient's blood pressure has improved. Overall she has been feeling pretty well this morning and no complaints of shortness of breath no edema and was ambulating without a problem. She said she did not feel quite as well after she just received
some insulin blood sugar was just rechecked and was 199. \\
-Would continue Lasix at current dosing
-Check orthostatic vitals.
-Defer to primary team regarding diabetic treatment.
If orthostatic blood pressures are fine then would continue with current diuretic dosing and then patient can follow-up with Dr. Acevedo as an outpatient. Patient would otherwise be stable from a cardiology standpoint for discharge.
Obviously we want to see patient feeling well and resolve issues related to blood sugar and diabetes management. Will defer to primary team.
Please call if additional assistance required
-
Original Note:
Today's Communication / Plan
-
switch IV Lasix to PO given symptomatic hypotension.
Lasix 80mg PO daily and monitor.
Impression / Plan
-
Acute HFpEF - with right sided systolic dysfunction.
-Weight has fallen from 105kg to 100 kg today, now with hypotension this am BP 87/57, still with bibasilar rales on exam.
-switch to PO Lasix today given hypotension, mildly symptomatic.
-sodium/fluid limitations and CHF education.
-started farxiga today, continue at d/c.
-of note PE ruled out on admission.
PHTN - moderate on echo.
- likely 2/2 to diastolic failure, but with pulmonary disease and mild HK of RV, may be some pulmonary etiology as well.
-reassess when euvolemic.
pSVT - stable.
-no recurrence within 24 hours.
-? hallucination with diltiazem, stopped and monitor.
Obesity - chronic.
-continue Mounjaro.
Tobacco use - recommended total cessation
-she is wearing a patch, continue.
Subjective:
c/o mild lightheadedness due to hypotension this am.
denies SOB, CP or palps.
Data:
echo 05/16/24:
Normal left ventricular size and systolic function.
Stage III diastolic dysfunction suggestive of restrictive filling pattern and
increased filling pressures.
Normal right ventricular size with hypokinesis of the free wall.
Mild to moderate mitral regurgitation, may be underestimated due to acoustic
shadowing.
Moderate pulmonary hypertension.
Trivial pericardial effusion. Pleural effusion present.
-
Compared to the prior echo images on 08/02/23, the right ventricular systolic
function is now depressed. Moderate pulmonary hypertension is now seen.
-
Contacted ordering physician regarding the new RV dysfunction 05/16/24 4:55 PM.,
?consider PE.
Physical Exam
Vital Signs/Labs
Vital Signs
Temp Pulse Resp BP Pulse Ox
98.3 F 85 16 101/55 95
05/18/24 07:00 05/18/24 09:32 05/18/24 07:00 05/18/24 09:32 05/18/24 07:00
05/17/24 05/18/24 05/19/24
06:59 06:59 06:59
Actual Weight 102.172 kg 100.471 kg
05/18/24 06:25
05/18/24 06:25
Magnesium 2.4 mg/dl (1.6-2.3) H 05/18/24 06:25
05/15/24
13:31
Cpz-[id number]-Trqipshpgtt Pept 4750
LAB Results
05/15/24 05/15/24 05/16/24
13:31 21:30 01:13
Troponin I 0.042 H* 0.029 D Cancelled
05/16/24
04:24
Troponin I 0.018 D
Physical Exam
Constitutional: No acute distress
EENT: Anicteric and Moist mucous membranes
Cardiovascular: Rhythm & rate is regular
Respiratory: Respiratory effort normal and Crackles Present (mild bibasilar rales)
GI: Soft, Non tender and Normal bowel sounds
Neuro/Psych: AO x 3
Other: Skin (warm, dry)
Data Reviewed
-
Date of Service: May 18, 2024
Medical Decision Making: Reviewed Test Results
EKG: Tracing Personally Visualized and interpreted
Echo: Report Reviewed by me
Labs: Labs Reviewed by me
Old Records: Reviewed
[2024-05-18] MEDS: LASIX IV (10:06)
[2024-05-18] MEDS: LASIX 80 MG PO (10:08)
[2024-05-18 11:00] VITALS: BP 112/67
--- NOTE | 2024-05-18 11:01 | W.PN.HOSP.TC ---
Addendum entered and electronically signed by Tony Poole MD 05/18/24 14:16:
Patient blood pressure improved. Orthostatic vital sign negative. Transition to 80 mg p.o. Lasix. Per cardiology okay for discharge.
More than 30 minutes spent in discharge including
Final examination of the patient
Summarizing hospital stay
Instructions for continuing care to all relevant caregivers
Preparation of discharge records, prescriptions, and referral forms
Total time spent (in minutes): 52
Original Note:
Today's Communication/Plan
-
Lasix on hold
Farxiga continue
P.o. Lasix in morning
Monitor blood pressure
Assessment / Plan
Assessment / Plan
#Shortness of breath likely 2/2 new onset of acute HFpEF
#Nonischemic myocardial injury likely secondary to CHF`
Chest x-ray on 05/11 with infiltrate noted. Mild elevation of right hemidiaphragm. Mild cardiomegaly stable.
CT chest negative for pulmonary embolism. Did show bilateral pleural effusions and pulmonary edema.
Tachycardia noted
Procalcitonin negative. WBC normal and thus DC antibiotics.
DC further steroids.
Bronchodilators prn only.
Sputum sample
COVID-negative.
Recommended complete tobacco cessation
Lactic acid within normal limits
proBNP elevated 4750. Troponin down trended.
Patient prior PFTs reviewed and there are some suspicion for interstitial lung disease but nonobstructive.
Echo with normal EF and function. Stage III diastolic dysfunction suggestive of restrictive filling pattern and increased filling pressure. Normal right ventricular size with hypokinesis of the free wall. Mild to moderate mitral regurgitation.
Moderate pulmonary hypertension. Trivial pericardial effusion. Pleural effusion present.
Lasix 40 mg IV twice daily-on hold as with hypotension with plan to switch to 80 mg of p.o. daily. Lost 4 kg.
Daily Weight. Strict. I/O. Plan to start Farxiga
Can consider as outpatient to be started on GERMAINE/ARB or Entresto if blood pressure can tolerate.
Consult cardiology
#Bilateral pleural effusions likely 2/2 AECHF
Not enough fluid for Thora.
# Pulmonary hypertension
Likely secondary to heart failure
Recommend outpatient sleep study
# Elevated creatinine likely secondary diuresis
Continue trend creatinine for now
# SVT
-Started on Cardizem however stopped as? Hallucinations reported
-Per cardiology monitor off meds for now
#Diabetes mellitus and morbid obesity
iss.
on moounjaro
a1c at 6.6
#Hyperlipidemia
Continue statin
Tobacco abuse daily basis
Counseled on cessation
Nicotine patch
Morbid obesity due to excess calories
Affects all aspects of medical care
Counseled on weight loss after resolution of acute illness
History of murmur
Nonrheumatic mitral valve insufficiency
History of pulmonary nodules
Leukocytosis likely 2/2 steorids
steroids has been stopped
DVT prophylaxis with Lovenox
Full code
Discussed with patient daughter at bedside in detail. All question answered to their satisfaction.
Anticipated Discharge: Within 24 hours
Subjective/Interval History
-
Date of Service: May 18, 2024
States feel little lightheaded this morning
Patient was hypotensive
Objective Data
-
Labs:
Laboratory Results
05/18/24
06:25
WBC 10.7
Hgb 11.8 L
Hct 35.3 L
Plt Count 298
Sodium 142
Potassium 3.6
Chloride 97 L
Carbon Dioxide 35 H
BUN 29 H
Creatinine 1.0
Glucose 138 H
Calcium 8.8
Vital Signs:
Vital Signs
Temp Pulse Resp BP Pulse Ox
98.3 F 85 16 101/55 95
05/18/24 07:00 05/18/24 09:32 05/18/24 07:00 05/18/24 10:08 05/18/24 07:00
I&O
05/17/24 05/18/24 05/19/24
06:59 06:59 06:59
Intake Total 780 / 780 960 / 960
Output Total 1150 / 1150 2200 / 2200
Balance -370 / -370 -1240 / -1240
Physical Exam
-
General: Well Developed, No Apparent Distress and Morbidly Obese
HEENT: Normocephalic, Atraumatic and Moist Mucous Membranes
Respiratory: Clear to Auscultation (improvement in aeration continues) and Non Labored Respirations; Negative Wheezes or Crackles
Cardiac: Regular Rhythm, S1/S2 and Murmur; Negative Rub or Gallop
GI: Soft, Nontender, Nondistended and Normal Bowel Sounds; Negative Organomegaly
Rectal: Deferred by Provider
Musculoskeletal: No Clubbing, No Cyanosis and No Edema
Skin: Negative Rash
Neuro: Awake, Alert, Oriented, AO x 3, No Motor Deficits and Nonfocal/Grossly Intact
Psych: Calm
Data Reviewed
-
Total Time Spent with Patient (in minutes): 56
[2024-05-18 12:17] LABS: Glucose - Point of Care 215 mg/dl (70-99)
[2024-05-18] MEDS: NOVOLOG FLEXPEN-LOW RESISTANCE 2 UNITS SC (12:42)
[2024-05-18 13:38] LABS: Glucose - Point of Care 199 mg/dl (70-99)
[2024-05-18 13:58] VITALS: BP 114/76; BP 118/68; BP 128/78; PULSE 7; PULSE 87; PULSE 90
--- NOTE | 2024-05-18 14:16 | W.DCSUMMARY ---
Discharge Summary
Discharge Data
Date of Admission: 05/15/24
Date of Discharge: 05/18/24
-
Pending Results: No
Hospital Course
68-year-old female past medical history of mood disorder, diabetes mellitus, morbid obesity to excess calories, hyperlipidemia, tobacco abuse was presenting from home with shortness of breath. Patient was complaining of shortness of breath and
underwent chest x-ray as outpatient which showed pneumonia and was receiving antibiotics. Patient states shortness of breath persisted and she has a coming to the ER. CT chest was ordered and was found to be negative for pulmonary embolism.
However it did show pleural effusion and pulmonary edema. proBNP was elevated. Echo with normal EF and function. Stage III diastolic dysfunction suggestive of restrictive filling pattern and increased filling pressure. Normal right ventricular
size with hypokinesis of the free wall. Mild to moderate mitral regurgitation. Moderate pulmonary hypertension. Trivial pericardial effusion. Pleural effusion present. Patient underwent iRad for thoracentesis however not much fluid for Thora.
Patient with significant weight loss with IV diuretics. Patient was evaluated by [facility] cardiology. Patient lost approximately 10-12 pounds. Patient was counseled on tobacco cessation completely. Patient was transition off IV Lasix to 80 mg of p.o.
Lasix. Farxiga was started. Patient will evaluated further as outpatient in regards for starting patient on GERMAINE/ARB and/or Entresto. However due to soft blood pressure it might be difficult. Also recommended to be evaluated for sleep study as
outpatient. Patient vital signs were stable. Creatinine stable. Patient be discharged home with recommendation to follow-up with her primary database coordinator Dr. Acevedo.
Discharge Plan
-
Patient Disposition: Home (Routine Discharge)
Discharge Diagnosis/Procedures: Acute exacerbation of diastolic heart failure
Nonischemic myocardial injury likely secondary to CHF
Pleural effusion
Pulmonary hypertension
Elevated creatinine
Condition: Fair
Diet: 2 Gram Sodium, Diabetic, Carb Controlled and Restrict fluids to 48 oz
Activity: With assistance and As tolerated
Driving Restrictions: As prior to admission
Specialty Instructions: Weigh Daily- Call MD for wt gain/loss 3 lbs overnight/5 lbs in 1 week
Instructions: *CBC Heart Failure Instructions
Referrals:
Mady Quarles MD [Family Provider] -
Allegra Acevedo MD [Active] - in two to three weeks
Prescriptions:
New
furosemide 80 mg Tablet
80 mg PO DAILY 30 Days Qty: 30 0RF
dapagliflozin propanediol 10 mg Tablet
10 mg PO DAILY 30 Days Qty: 30 0RF
Continued
atorvastatin [Lipitor] 20 mg Tablet
20 mg PO QPM
duloxetine [Cymbalta] 30 mg Capsule,Delayed Release(Dr/Ec)
90 mg PO DAILY
cholecalciferol (vitamin D3) [Vitamin D3] 25 mcg (1,000 unit) Tablet
25 mcg PO DAILY
Visbiome 112.5 billion cell Capsule
1 cap PO DAILY
Mounjaro 2.5 mg/0.5 mL Pen Injector
2.5 mg SC SA
Rx Instructions:
for 4 weeks
albuterol sulfate 90 mcg/actuation Hfa Aerosol Inhaler
2 puff INHALATION R Q6HPRN PRN (Reason: sob)
Discontinued
doxycycline hyclate 100 mg Capsule
100 mg PO BID
cefpodoxime 200 mg Tablet
200 mg PO BID
naproxen sodium [Aleve] 220 mg Tablet
220 mg PO BIDPRN PRN (Reason: mild pain)
Discharge Orders:
Discharge Patient (As Directed); Ordered 05/18/24
Ordered By: Tony Poole
Discharge Date and Time
Print Language: NEPALI
[2024-05-18 15:00] VITALS: BP 113/68
--- NOTE | 2024-05-18 15:25 | CM ---
CM following re: discharge planning.
Reviewed pt's chart, met with pt and daughter at bedside.
Discharge order noted. Pt is aware, expressed her agreement with discharge. IMM reviewed, placed on chart, pt has a copy.
Pt asked regarding completion short term disability documents and CM advised the pt to reach out to her PCP.
D/C plan: home no needs. daughter to transport.
== END 2024-05-18 15:25 | disposition home or self-care (01) | DRG 292 ==
LOC: 4 WEST ACU 12:37
PROVIDERS: ADMITTING PHYSICIAN Hospitalist; CONSULT PHYSICIAN Internal Medicine; EMERGENCY PHYSICIAN Emergency Medicine; FAMILY PHYSICIAN Family Medicine
DX: I50.33 Acute on chronic diastolic (congestive) heart failure (principal); I47.10 Supraventricular tachycardia, unspecified; K57.92 Diverticulitis of intestine, part unspecified, without perforation or abscess without bleeding; I5A Non-ischemic myocardial injury (non-traumatic); R44.3 Hallucinations, unspecified; F17.210 Nicotine dependence, cigarettes, uncomplicated; R06.89 Other abnormalities of breathing; F32.A Depression, unspecified; E11.9 Type 2 diabetes mellitus without complications; I34.0 Nonrheumatic mitral (valve) insufficiency; R91.8 Other nonspecific abnormal finding of lung field; E78.00 Pure hypercholesterolemia, unspecified; F39 Unspecified mood [affective] disorder; F41.9 Anxiety disorder, unspecified; I77.810 Thoracic aortic ectasia; I27.20 Pulmonary hypertension, unspecified; D72.829 Elevated white blood cell count, unspecified; J45.909 Unspecified asthma, uncomplicated; E66.01 Morbid (severe) obesity due to excess calories; Z60.2 Problems related to living alone; Z68.38 Body mass index [BMI] 38.0-38.9, adult; Z11.52 Encounter for screening for COVID-19; Z88.2 Allergy status to sulfonamides; Z87.01 Personal history of pneumonia (recurrent)
CPT/HCPCS: 71275; 76604; 80048; 80053; 82962; 83036; 83605; 83735; 83880; 84145; 84484; 85025; 86803; 87040; 87811; 93005; 93306; 94640; 96361; 96374; 96375; 99285; Q9967

== ENCOUNTER 2024-05-26 19:23 | Inpatient (IN) | payer MEDICARE, SELFPAY ==
[2024-05-26] VITALS (27 sets, daily range): BP systolic 86–116; BP diastolic 57–84
[2024-05-26 15:51] LABS: % Basophils 1.1 % (0-2); % Eosinophils 2.9 % (0-6); % Immature Granulocytes 0.5 % (0-0.5); % Lymphocytes 29.5 % (20.5-51.1); Absolute Basophils 0.1 10^3/uL (0-0.2); Absolute Eosinophils 0.3 10^3/uL (0-0.7); Absolute Immature Granulocytes 0.1 10^3/uL (0-0.05); Absolute Lymphocytes 3.4 10^3/uL (1.2-3.4); Absolute Monocytes 1.3 10^3/uL (0.1-0.6); Absolute Neutrophils 6.3 10^3/uL (1.4-6.5); Hematocrit 39.5 % (37.0-47.0); Hemoglobin 13.5 g/dL (12.0-16.0); Mean Corp Hgb Conc. 34.2 g/dL (33.0-37.0); Mean Corpuscular Hgb 29.7 pg (27.0-31.0); Mean Platelet Volume 11.7 fL (7.4-10.4); Nucleated Red Blood Cells % 0 %; Platelet Count 286 10^3/uL (130-400); Red Blood Cell Count 4.54 10^6/uL (4.20-5.40); Red Cell Dist. Width 13.2 % (11.5-14.5); White Blood Cell Count 11.4 10^3/uL (4.8-10.8)
--- NOTE | 2024-05-26 15:51 | ED.GENMED ---
History of Present Illness
General
Chief Complaint: Weakness
Time Seen by Provider: 05/26/24 15:36
History of Present Illness
History of Present Illness:
68-year-old female history of diabetes, CHF presenting with dizziness, diaphoresis, clamminess starting today. Patient states that she was feeling like that and felt that she needed to have bowel movements that she went to the bathroom and was
straining when she felt dizzy, cold clammy and felt like she was going to pass out. Patient denies history of atrial fibrillation. Patient is not on blood thinners. Patient states that she was recently admitted to the hospital for CHF, has been
compliant with Lasix 80 mg. Patient states that she has lost 22 pounds. Patient states that she has had decreased urinary output over the past few days. Patient denies any current chest pain, shortness of breath, palpitations, fever, chills,
cough or urinary symptoms.
Past History
Past History
ED Past Medical History: None
ED Past Surgical History: None
Patient has exhibited threatening behavior?: No
Social History
Tobacco: Smoker
Living: alone
Employment: Employed
Phy Exam
Physical Exam
Physical Exam:
General: Alert, no acute distress, no diaphoresis
Head: NCAT
Eyes: clear conjunctiva
Neck: supple
Cardiac: Tachycardic, irregularly irregular rhythm
Lungs: clear to auscultation bilaterally. No wheezes, rales, or rhonchi. Speaking full unlabored sentences. No respiratory distress.
Abdomen: soft, nondistended nontender. No rebound or guarding.
MSK: no lower extremity edema bilaterally. No deformity
Skin: warm, dry
Neuro: Alert and oriented x3. no focal deficits
Course
Orders/Labs/Results
Orders:
Orders
05/26/24 15:35
Electrocardiogram (*1) Urgent
Reason for Study: Syncope
05/26/24 15:36
EKG- Treatment ONCE
05/26/24 15:37
Complete Blood Count/With Diff Urgent
Comprehensive Metabolic Panel Urgent
NT-proBNP Urgent
Troponin I Urgent
05/26/24 15:49
CXR Port [CR Chest Portable - 1 View] Urgent
Comment:
Reason For Exam: tachycardia
Reason Study Needs to be Portable: Patient Unstable
05/26/24 15:50
Diltiazem HCl [Cardizem] 20 mg IV NOW STA
05/26/24 16:00
Diltiazem 125 mg/125 ml Nss [Cardizem] 125 mg in 125 ml IV PER PROTOCOL
Currently infusing. Continue current dose and titrate:: Yes
Titrate to keep:: Heart rate 80-100 bpm
Titrate by mg/hr:: 5 mg/hr
Frequency of titrations (minutes):: 15
Maximum dose in mg/hr:: 15
05/26/24 16:37
Magnesium Urgent
TSH Reflex To Free T4 Urgent
Comment: ADD ON
05/26/24 17:23
Heparin 4,000 units IV NOW STA
Potassium Chloride [KCl] 40 meq PO NOW STA
05/26/24 17:[address] Non Medication Order As Directed
Physician Order: PTT 6 hours after initial start of Heparin infusion
05/26/24 17:30
Heparin 33668 Units/250 ml 25,000 units in 250 ml IV PER PROTOCOL
Weight to be used for heparin protocol in kilograms (kg):: 100.3
Protocol:: Cardiac Tx/Acute Coronary
PTT Goal Range to be used:: PTT 73 to 111 seconds
Order type:: Initial
INITIAL Infusion Dose (UNITS/KG/hr) & then follow protocol:: 12 units/kg/hr
Infusion Dose in UNITS/hr & then follow protocol (UNITS/hr):: 1,000
INFUSION RATE in mL/hr & then follow protocol (mL/hr):: 10
PTT less than or equal to 64 seconds:: Increase rate by 200 units/hr (+ 2 mL/hr)
PTT 64.1 to 72.9 seconds:: Increase rate by 100 units/hr (+ 1 mL/hr)
PTT 73 to 111 seconds:: Target Range. No change in rate.
PTT 111.1 to 130.9 seconds:: Decrease rate by 100 units/hr (- 1 mL/hr)
PTT 131 to 199.9 seconds:: HOLD for 1 hr. Then decrease rate by 200 units/hr (- 2 mL/hr)
PTT greater than or equal to 200 seconds:: HOLD for 2 hrs & Notify Provider. Then decrease by 200 units/hr (-
2 mL/hr)
Lab follow-up:: Each change, PTT q6h until 2 consecutive are therapeutic. Then PTT
daily.
05/26/24 17:36
PTT Urgent
Comment: Obtain baseline before beginning heparin infusion if not already collected
05/26/24 18:00
Flush (0.9% Sodium Chloride) [Flush (Nss)] See Dose Instructions IV PER PROTOCOL
05/26/24 18:11
Add On- LAB Urgent
Tests Added?: TSH w/Reflex
Abnormal Lab Results
05/26/24 05/26/24
15:37 16:37
WBC 11.4 H 10^3/uL
(4.8-10.8)
MPV 11.7 H fL
(7.4-10.4)
Abs Immat Gran (auto) 0.1 H 10^3/uL
(0-0.05)
Absolute Monos (auto) 1.3 H 10^3/uL
(0.1-0.6)
Monocytes % 11.0 H %
(1.7-9.3)
Potassium 2.9 L mmol/L
(3.5-5.1)
Chloride 91 L mmol/L
(98-107)
BUN 38 H mg/dl
(7-17)
Creatinine 1.3 H mg/dL
(0.6-1.0)
Glucose 222 H mg/dl
(70-99)
Magnesium 2.5 H mg/dl
(1.6-2.3)
AST 39 H U/L
(14-36)
05/26/24 15:37
05/26/24 15:37
Vital Signs
Initial and Last Documented VS:
Initial Vital Signs
Pulse Resp BP Pulse Ox
140 18 94/61 93
05/26/24 15:32 05/26/24 15:32 05/26/24 15:32 05/26/24 15:32
Last Documented Vital Signs
Pulse Resp BP Pulse Ox
97 14 104/71 97
05/26/24 18:30 05/26/24 18:30 05/26/24 18:30 05/26/24 17:32
MDM/Problems Addressed
Differential Diagnosis Includes:
Symptomatic atrial fibrillation, electrolyte abnormality, vasovagal syncope
MDM/Problems Addressed:
68-year-old female presenting with new onset atrial fibrillation and near syncope. Patient states she has had episodes of palpitations over the past week. Patient is not currently anticoagulated. Given not anticoagulated and symptoms greater than
48 hours, contraindication to cardioversion. Will rate control with Cardizem. Initial EKG shows atrial fibrillation at 139bpm with QRS 98, QT 362 no STEMI.
Labs reviewed, significant for hypokalemia 2.9 (most likely from lasix). Ordered potassium 40mEq PO. On reevaluation, patient states she feels better. HR improved to low 100s. Given heart score >2, ordered heparin for anticoagulation. Discussed with
hospitalist.
*Critical Care Note
Total Time (30-74mins, 75-104mins- exclusive of procedures): Not Applicable
ED Attending Note
-
Portions of this chart may have been created with voice recognition software.� Occasional wrong word or��sound alike� substitutions may have occurred due to the inherent limitations of voice recognition software.
Discharge Plan
Departure
Patient Disposition: Admit
Date of Disposition: 05/26/24
Time of Disposition: 17:33
Presentation/result/management discussed w/ accepting MD/DO: Hospitalist
Discharge Problem:
Atrial fibrillation with RVR, Acute hypokalemia
Prescriptions:
No Action
atorvastatin [Lipitor] 20 mg Tablet
20 mg PO QPM
duloxetine [Cymbalta] 30 mg Capsule,Delayed Release(Dr/Ec)
90 mg PO DAILY
cholecalciferol (vitamin D3) [Vitamin D3] 25 mcg (1,000 unit) Tablet
25 mcg PO QPM
Visbiome 112.5 billion cell Capsule
1 cap PO DAILY
Mounjaro 2.5 mg/0.5 mL Pen Injector
2.5 mg SC SA
Rx Instructions:
for 4 weeks
furosemide 80 mg Tablet
80 mg PO DAILY 30 Days Qty: 30 0RF
Jardiance 10 mg Tablet
10 mg PO DAILY
Referrals:
Mady Quarles MD [Family Provider] -
Interventions
Interventions:
*Risk Screen - Suicide Last Done: 05/26/24 15:26
*General Assessment Last Done: 05/26/24 15:26
*Neglect/Abuse Screening Last Done: 05/26/24 15:26
ED- Cardiac Assessment Last Done: 05/26/24 15:49
ED- Neurological Assessment Last Done: 05/26/24 15:49
ED- Pulmonary Assessment Last Done: 05/26/24 15:49
Discharge Date and Time
Print Language: ESTONIAN
[2024-05-26] MEDS: CARDIZEM 20 MG IV (15:59)
[2024-05-26] MEDS: CARDIZEM 125 IV (16:00)
[2024-05-26 16:08] LABS: NT-proBNP 973 pg/ml; Troponin I 0.014 ng/ml
[2024-05-26 16:31] LABS: ALT (SGPT) 30 U/L (0-35); AST (SGOT) 39 U/L (14-36); Albumin 4.4 g/dl (3.5-5.0); Alkaline Phosphatase 101 U/L (38-126); Blood Urea Nitrogen 38 mg/dl (7-17); Calcium 9.3 mg/dl (8.4-10.2); Carbon Dioxide 29 mmol/L (22-30); Chloride 91 mmol/L (98-107); Estimated Creatinine Clearance 47 ml/min; Glucose 222 mg/dl (70-99); Potassium 2.9 mmol/L (3.5-5.1); Sodium 139 mmol/L (135-145); Total Bilirubin 1.3 mg/dl (0.2-1.3); Total Protein 6.8 g/dl (6.3-8.2); eGFR 44.51
[2024-05-26 17:01] LABS: Magnesium 2.5 mg/dl (1.6-2.3)
[2024-05-26] MEDS: HEPARIN 4000 UNITS IV (17:39)
[2024-05-26] MEDS: KCL 40 MEQ PO (17:39)
[2024-05-26 17:55] LABS: APTT 28.3 Sec (23.4-35.0)
[2024-05-26] MEDS: HEPARIN 25000 UNITS/250 ML IV (18:04)
--- NOTE | 2024-05-26 18:35 | HPS.HSE ---
Family Physician
-
Family Physician: Mady Quarles MD
Chief Complaint
-
Dizziness
History of Present Illness
Patient is a 68 yo female with a hx of DM, newly diagnosed diastolic heart failure for which she was discharged from the hospital on 05/18/24 presents with dizziness, diaphoresis, and feeling like she was going to lose unconsciousness that began
today while she was trying to have a bowel movement. She has been experiencing some intermittent heart palpitations since she was discharged from the hospital but did not notice any palpitations today. Upon recent discharge she was started on Lasix
and empagliflozin, and she reports a total weight loss of 22 lbs since being admitted to the hospital on 05/15. She denies chest pain or shortness of breath.
Medical History
Past Medical History
Past Medical History: Reports Other
Additional Past Medical History:
Diabetes Mellitus-Type 2
Hyperlipidemia
Chronic Diastolic Heart Failure
Pleural Effusion s/p Thoracentesis
Pulmonary Hypertension
Depression/Mood Disorder
Morbid Obesity due to Excess Calories
Diverticulitis
Tobacco Use Disorder
Past Surgical History: Reports Other
Additional Past Surgical History:
Bladder left
D&C
Laparoscopic appendectomy
Social History
Tobacco: Smoker (Half a pack a day for the past 20 years - Reports she has not smoked since her prior hospitalization)
Alcohol: Occasional
Family History
Family History: Not pertinent
Allergies / Home Medications
Allergies reflects when Allergies were last updated in [facility].
Home Medications with original date entered in [facility]
Allergy/Medication List:
Allergies
Allergy/AdvReac Type Severity Reaction Status Date / Time
Sulfa (Sulfonamide Allergy Shortness Verified 05/15/24 07:04
Antibiotics) of Breath
Home Medications
Lactobac no.2-Bifidobac no.1-S. thermo 112.5 billion cell capsule (Visbiome) 1 cap PO DAILY Gastrointestinal Issue 05/15/24
atorvastatin 20 mg tablet (Lipitor) 20 mg PO QPM High Cholesterol 05/15/24
cholecalciferol (vitamin D3) 25 mcg (1,000 unit) tablet (Vitamin D3) 25 mcg PO QPM Supplement 05/15/24
duloxetine 30 mg capsule,delayed release (Cymbalta) 90 mg PO DAILY Mental Health 05/15/24
tirzepatide 2.5 mg/0.5 mL subcutaneous pen injector (Mounjaro) 2.5 mg SC SA endocrine condition 05/15/24
furosemide 80 mg tablet 80 mg PO DAILY Heart Failure 30 days #30 tabs 05/18/24
empagliflozin 10 mg tablet (Jardiance) 10 mg PO DAILY 05/26/24
Review of Systems
-
A 12 point ROS was completed and negative except as noted: Yes
Constitutional: Denies Fever or Chills
Respiratory: Denies Cough or Trouble Breathing
Cardiac: Reports Palpitations (Intermittent); Denies Chest Pain
Abdomen/GI: Denies Abdominal Pain, Nausea, Vomiting or Diarrhea
Physical Exam
Vital Signs
Vital Signs
Pulse Resp BP Pulse Ox
109 15 105/74 97
05/26/24 18:15 05/26/24 18:15 05/26/24 18:15 05/26/24 17:32
Physical Exam
General: Comfortable and Conversant
HEENT: Anicteric and Moist mucous membranes
Respiratory: Clear and Non Labored Respirations
Cardiac: S1/S2, Irregular Rhythm and Tachycardia
GI: Soft and Non Tender
Rectal: Deferred by Provider
Musculoskeletal: No Clubbing, No Cyanosis and Other (Trace/+1 Edema Bilateral Lower Ext)
Skin: Warm and Dry
Neuro: Awake, Alert, Oriented and No Motor Deficits
Psych: Calm
Laboratory Results
-
05/26/24 15:37
05/26/24 15:37
Laboratory Results
APTT 28.3 Sec (23.4-35.0) 05/26/24 17:36
Total Bilirubin 1.3 mg/dl (0.2-1.3) 05/26/24 15:37
AST 39 U/L (14-36) H 05/26/24 15:37
ALT 30 U/L (0-35) 05/26/24 15:37
Alkaline Phosphatase 101 U/L (38-126) 05/26/24 15:37
Troponin I 0.014 ng/ml 05/26/24 15:37
Data Reviewed
-
Lab Data: Labs Reviewed by me
Old Records: Reviewed
Impression/Plan
-
Atrial Fibrillation with Rapid Ventricular Response - New Diagnosis
-Consult Cardiology
-Continue Cardizem drip
-Continue heparin drip
Hypokalemia, likely related to diuretics
-Replace potassium
-Recheck potassium later this evening and in AM
Elevated Creatinine, suspect patient maybe overdiuresis
-Hold Lasix
-Recheck creatinine in AM
Chronic Diastolic Heart Failure
-Continue Jardiance
-Hold Lasix as above
-Monitor Daily Weights
Diabetes Mellitus, Type 2
-Hgb1c 6.6 in Apr 2024
-Patient maintained on Mounjaro as outpatient
-Continue Jardiance
Hyperlipidemia
-Continue Lipitor
Depression/Mood Disorder
-Continue Cymbalta
Morbid Obesity due to Excess Calories
-Encourage weight loss
-Patient using Mounjaro as outpatient
Tobacco Use Disorder
-Continue nicotine patch
-Continue smoking cessation
DVT proph: Heparin drip
Code Status: Full Code
--- NOTE | 2024-05-26 19:11 | W.PN.UPDATE ---
Update Note
Progress Note Update
This is addendum to H&P written by Yelitza Ellsworth on 05/26/2024.
68-year-old female past medical history of HFpEF, mitral insufficiency, pulmonary hypertension, SVT, diabetes, morbid obesity, hyperlipidemia,
Patient with new onset symptomatic atrial fibrillation with RVR seems to be triggered by overdiuresis for recent CHF exacerbation.� Labs show hypokalemia secondary to Lasix.� EVELIN.� Heparin drip.� Cardizem drip.� Hold Lasix.� Cardiology consulted.�
Potassium repletion.� Check TSH.
[2024-05-26 19:45] LABS: TSH Reflex To Free T4 1.06 uIU/ml (0.47-4.68)
[2024-05-26] MEDS: DULCOLAX 10 MG RECTAL (20:14)
[2024-05-26] MEDS: BENADRYL 25 MG IV (20:14)
--- NOTE | 2024-05-26 23:00 | PTCARENOTE ---
Pt. received as admission from ED into room 2878. Pt. stated that she is independent at home however upon sitting at side of stretcher, pt. became lightheaded. Pt. laid back down on stretcher, pulled over to IVU bed and kept bedrest until symptoms
improve. BP 104/60. Tele monitor connected, pt. in NSR with HR in 80s. Cardizem drip continues infusing at 5ml/hr and heparin gtt at 9ml/hr. Pt denies dizziness while laying flat, and has no complaints of pain. Plan of care discussed and pt.
remains NPO for possible intervention in AM. Can make needs known. Call golden within reach.
[2024-05-26 23:33] LABS: Glucose - Point of Care 211 mg/dl (70-99)
[2024-05-27] VITALS (10 sets, daily range): BP systolic 87–118; BP diastolic 53–66; BMI 36.7
[2024-05-27 00:26] LABS: APTT 117.8 Sec (23.4-35.0)
[2024-05-27] MEDS: CARDIZEM 125 IV (04:34)
--- NOTE | 2024-05-27 05:04 | W.PN.UPDATE ---
Update Note
Progress Note Update
k 3.0, will order KcL 40meq POx 1 now. Patient asymptomatic
[2024-05-27] MEDS: KCL 40 MEQ PO (06:23)
[2024-05-27 06:48] LABS: Hematocrit 37.6 % (37.0-47.0); Hemoglobin 12.8 g/dL (12.0-16.0); Mean Corpuscular Hgb 29.9 pg (27.0-31.0); Mean Corpuscular Volume 87.9 fL (81.0-99.0); Mean Platelet Volume 11.7 fL (7.4-10.4); Platelet Count 281 10^3/uL (130-400); Red Blood Cell Count 4.28 10^6/uL (4.20-5.40); Red Cell Dist. Width 13.4 % (11.5-14.5); White Blood Cell Count 19.5 10^3/uL (4.8-10.8)
[2024-05-27 06:49] LABS: Glucose - Point of Care 198 mg/dl (70-99)
[2024-05-27 06:57] LABS: APTT 96.2 Sec (23.4-35.0)
--- NOTE | 2024-05-27 07:00 | PTCARENOTE ---
report received at change of shift. Pt resting in bed. AAOX3. NSR with pvcs on telemetry heart rate 80s. cardizem infusing at 5 mg/hr. heparin gtt at 900 units/hr. pulses palpable. no edema. pt on room air, sat 98%. lung sounds clear. active bowel
sounds. voiding without difficulty. pt updated on plan of care. see worklist for full nursing assessment and interventions.
--- NOTE | 2024-05-27 07:19 | PTCARENOTE ---
In AM pt. reports feeling much better and requesting to ambulate to bathroom. BP laying flat 118/59. Pt. sat at edge of bed for 5 minutes and report no lightheadedness. BP sitting 117/66. Pt. up to standing scale and then ambulated to bathroom
without difficulty. No complaints of dizziness or SOB, HR remained 80s-90s. EKG confirmed NSR and also showed critical QT interval which was also present on previous EKG. Potassium level in ED 2.9, pt. received one dose of oral potassium. Redraw
showed potassium level of 3.0. ELECTRIC CONTAINER TESTER notified and STAT order for PO potassium added and given, see MAR.
[2024-05-27 07:28] LABS: Blood Urea Nitrogen 41 mg/dl (7-17); Carbon Dioxide 29 mmol/L (22-30); Chloride 97 mmol/L (98-107); Estimated Creatinine Clearance 50 ml/min; Glucose 206 mg/dl (70-99); Potassium 3.3 mmol/L (3.5-5.1); Sodium 139 mmol/L (135-145)
[2024-05-27] MEDS: CYMBALTA DELAYED RELEASE 90 MG PO (08:14)
[2024-05-27] MEDS: FARXIGA 10 MG PO (08:14)
[2024-05-27] MEDS: KCL 20 MEQ PO (08:14)
[2024-05-27] MEDS: NICODERM TRANSDERMAL 14 MG TRANSDERM (08:14)
[2024-05-27] MEDS: MIRALAX 17 GRAMS PO (08:15)
--- NOTE | 2024-05-27 08:19 | CON.CAR ---
Addendum entered and electronically signed by Antoine Valentino MD 05/27/24 09:50:
68 yo female with PMH of chronic HFPEF, DM, mild/mod MR is admitted with dizziness, palps. Diagnosed with new A fib with RVR. She was recently admitted to and diagnosed with HFPEF and discharged on lasix 80mg daily and jardiance. She is back in
NSR at time of my interview. Exam with RRR, II/ systolic murmur, no edema. K 2.9 on admit.
New A fib with RVR. Back in sinus on diltiazem drip.
-transition heparin to eliquis 5mg bid
-transition IV diltiazem to PO
Chronic HFPEF, now with EVELIN, and hypokalemia
-hold lasix, replete K
-will need dose reduction of lasix once ready to resume
Original Note:
Consultation
Consultation Request
Date/Time Consultation Requested: 05/26/24 9p
Date/Time Consultation Performed: 05/27/24 8a
Requesting Provider: Yelitza Evangelista PA-C
Performing Provider: PAULA Del Rosario for Dr. Valentino
Reason for Consultation: new Afib
Medical History
-
Chief Complaint: dizziness/diaphoresis
History of Present Illness:
Mrs. Mendosa is a 68 yo female with HFpEF, PHTN, LAFB, dilated aortic root, DM, asthma and tobacco abuse (quit smoking since d/c 05/18/24), who presents to the ER with c/o diaphoresis, dizziness, and palpitations. EKG in the ER showed Afib with
RVR 139 bpm, which is new for her. She is admitted to the hospitalist service and we are consulted for new Afib. Hypokalemia on admit K 3.0. She was given IV Diltiazem in the ER and converted to NSR. She states losing weight at home, about 1 lbs
a day, and was feeling dizzy, unwell. BP low on admit and weight today is 213 lbs, d/c weight 221 lbs.
Past Medical History
Past Medical History: Other (as above)
Social History
Tobacco: Smoker (quit smoking since hospital d/c 05/18/24)
Living: Alone
Family History
Family History: Reviewed & Not Pertinent
Allergies / Home Medications
Allergy/AdvReac Type Severity Reaction Status Date / Time
Sulfa (Sulfonamide Allergy Shortness Verified 05/15/24 07:04
Antibiotics) of Breath
�Medication �Instructions �Recorded �Confirmed �Type
Lactobac no.2-Bifidobac no.1-S. 1 cap PO DAILY Gastrointestinal 05/15/24 05/26/24 History
thermo 112.5 billion cell capsule Issue
(Visbiome)
atorvastatin 20 mg tablet (Lipitor) 20 mg PO QPM High Cholesterol 05/15/24 05/26/24 History
cholecalciferol (vitamin D3) 25 25 mcg PO QPM Supplement 05/15/24 05/26/24 History
mcg (1,000 unit) tablet (Vitamin
D3)
duloxetine 30 mg capsule,delayed 90 mg PO DAILY Mental Health 05/15/24 05/26/24 History
release (Cymbalta)
tirzepatide 2.5 mg/0.5 mL 2.5 mg SC SA endocrine condition 05/15/24 05/26/24 History
subcutaneous pen injector
(Mounjaro)
furosemide 80 mg tablet 80 mg PO DAILY Heart Failure 30 05/18/24 05/26/24 Rx
days #30 tabs
empagliflozin 10 mg tablet 10 mg PO DAILY 05/26/24 05/26/24 History
(Jardiance)
Review of Systems
-
History Source: Patient
All other systems: Negative unless noted
Physical Exam
Vital Signs
Temp Pulse Resp BP Pulse Ox
97.8 F 89 20 117/66 98
05/27/24 07:23 05/27/24 04:50 05/27/24 07:23 05/27/24 04:50 05/27/24 07:23
Lab Results
05/27/24 06:38
05/27/24 06:38
Troponin I 0.014 ng/ml 05/26/24 15:37
Gal-L-Qfqoklldgon Pept 973 pg/ml 05/26/24 15:37
Physical Exam
General: Well Developed, Well Nourished and No Apparent Distress
HEENT: Normocephalic, Anicteric and Moist Mucous Membranes
Respiratory: Clear (mildly diminished bibasilar) and Non Labored Respirations
Cardiac: S1/S2 and Regular Rhythm
Breast: Deferred by me
GI: Soft, Non Tender, Non Distended and Normal Bowel Sounds
Rectal: Deferred by Provider
Genito-urinary: Clear Urine
Musculoskeletal: No Cyanosis and No Edema
Skin: Warm and Dry
Neuro: AO x 3
Hematologic/Lymphatic: No Lymphadenopathy
Psych: Calm
Impression / Plan
-
Afib - RVR, new onset.
- c/o diaphoresis, palpitations and dizziness for the last several days.
- IV Diltiazem drip in the ER and converted to NSR.
- stop IV Diltiazem and switch to po now.
- on IV Heparin, stop drip and start Eliquis 5mg BID.
- [id number] VASC score is 4 (female, age, DM, CHF), recommend Eliquis 5mg BID, case management consult for pricing.
- avoiding BB therapy due to asthma history.
HFpEF - with right sided systolic dysfunction.
- chronic.
- dry on admission and Lasix held.
- at discharge will reduce home Lasix dose to 40mg daily.
- daily weights, 213 lbs today.
- continue sodium/fluid restrictions, daily weights.
- continue Jardiance.
- reviewed HF guidelines for weight loss/gain at home, she verbalized understanding.
PHTN - moderate on echo 05/16/24 as below.
- due to diastolic failure, but with pulmonary disease and mild hypokinesis of RV, may be some pulmonary etiology as well.
Obesity - chronic.
- continue Mounjaro.
Tobacco use - stopped smoking since hospital discharge 05/18/24.
Echo 05/16/24:
Normal left ventricular size and systolic function.
Stage III diastolic dysfunction suggestive of restrictive filling pattern and
increased filling pressures.
Normal right ventricular size with hypokinesis of the free wall.
Mild to moderate mitral regurgitation, may be underestimated due to acoustic
shadowing.
Moderate pulmonary hypertension.
Trivial pericardial effusion. Pleural effusion present.
Compared to the prior echo images on 08/02/23, the right ventricular systolic
function is now depressed. Moderate pulmonary hypertension is now seen.
Data Reviewed
-
EKG: Tracing Personally Visualized and interpreted (Afib 139 bpm )
Radiology: Report Reviewed by me (CXR: Improving right basilar pneumonia.)
Medical Tests (Nuc Med, Echo etc): Report Reviewed by me (as above)
Labs: Labs Reviewed by me
Old Records: Reviewed
[2024-05-27 09:43] LABS: Glucose - Point of Care 173 mg/dl (70-99)
[2024-05-27] MEDS: NOVOLOG FLEXPEN-LOW RESISTANCE 1 UNITS SC ×3 (09:47→17:29)
[2024-05-27] MEDS: ELIQUIS 5 MG PO ×2 (09:48→19:56)
[2024-05-27] MEDS: CARDIZEM CD 120 MG PO (09:48)
[2024-05-27 14:26] LABS: Glucose - Point of Care 199 mg/dl (70-99)
--- NOTE | 2024-05-27 15:12 | W.PN.HOSP.TC ---
Today's Communication/Plan
-
Monitor vital signs and see plan
Continue with Cardizem and Eliquis
Hopeful DC next 24 hours
Monitor leukocytosis
Assessment / Plan
Assessment / Plan
General: Comfortable and Conversant
HEENT: Anicteric and Moist mucous membranes
Respiratory: Clear and Non Labored Respirations
Cardiac: S1/S2, Irregular Rhythm and Tachycardia
GI: Soft and Non Tender
Musculoskeletal: No Clubbing, No Cyanosis and Other (Trace/+1 Edema Bilateral Lower Ext)
Neuro: Awake, Alert, Oriented and No Motor Deficits
Psych: Calm
Atrial Fibrillation with Rapid Ventricular Response - New Diagnosis
Now converted to normal sinus rhythm
Now on p.o. Cardizem
Transition to Eliquis, behavioral health case manager consulted for cost
-Cardiology following
Leukocytosis likely secondary to stress
Monitor
CXR with improved PNA; procal was neg last admission so abx was stopped
Hypokalemia, likely related to diuretics
-Replace potassium
Monitor
Elevated Creatinine, suspect patient maybe overdiuresis
-Hold Lasix
-Recheck creatinine in AM
Chronic Diastolic Heart Failure
-Continue Jardiance
-Hold Lasix as above
-Monitor Daily Weights
Diabetes Mellitus, Type 2
-Hgb1c 6.6 in Apr 2024
-Patient maintained on Mounjaro as outpatient
-Continue Jardiance
Diabetes education
Hyperlipidemia
-Continue Lipitor
Depression/Mood Disorder
-Continue Cymbalta
Morbid Obesity due to Excess Calories
-Encourage weight loss
-Patient using Mounjaro as outpatient
Tobacco Use Disorder
-Continue nicotine patch
-Continue smoking cessation
DVT proph: Eliquis
Code Status: Full Code
Anticipated Discharge: Within 24 hours
Subjective/Interval History
-
Date of Service: May 27, 2024
denies pain
Objective Data
-
Labs:
Laboratory Results
05/27/24 05/27/24
06:38 13:00
WBC 19.5 H
Hgb 12.8
Hct 37.6
Plt Count 281
APTT 96.2 H Pending
Sodium 139
Potassium 3.3 L
Chloride 97 L
Carbon Dioxide 29
BUN 41 H
Creatinine 1.2 H
Glucose 206 H
Calcium 9.0
Vital Signs:
Vital Signs
Temp Pulse Resp BP Pulse Ox
97.8 F 85 20 115/65 92
05/27/24 14:56 05/27/24 11:00 05/27/24 14:56 05/27/24 09:48 05/27/24 14:56
I&O
05/26/24 05/27/24 05/28/24
06:59 06:59 06:59
Intake Total 480 / 480
Output Total 250 / 250
Balance -250 / -250 480 / 480
--- NOTE | 2024-05-27 16:25 | CM ---
spoke to pt in room, she is prev ndep, lives alone in a 2 story home with 2 steps to enter. she denies any dc planning needs or dme's. plan is for dc to home when medcially stable.
[2024-05-27] MEDS: LIPITOR 20 MG PO (17:28)
[2024-05-27 17:31] LABS: Glucose - Point of Care 194 mg/dl (70-99)
--- NOTE | 2024-05-27 17:48 | CM ---
priced toni with [facility]- her copay is $142/month- pt is in her coverage gap.
--- NOTE | 2024-05-27 20:00 | PTCARENOTE ---
Received pt from [facility]. pt resting comfortably in bed. pt is AAOx4, denies pain. ambulates independently. NSR on monitor. VSS. heart sounds audible, radial and DP pulses palpable, no edema noted. lungs CTA, spo2 96% on RA. +BS x4 quadrants,
abdomen soft non-tender. pt voiding without difficulty. skin is clean, dry, and intact. PIV maintained. call golden within reach. will continue to monitor.
[2024-05-27 21:58] LABS: Glucose - Point of Care 127 mg/dl (70-99)
--- NOTE | 2024-05-28 | PTCARENOTE ---
Pt assessment unchanged. NSR on monitor. VSS. pt resting comfortably in bed. call golden within reach. will continue to monitor.
[2024-05-28 03:48] VITALS: BP 121/64
[2024-05-28 03:54] VITALS: BP 121/64
--- NOTE | 2024-05-28 04:00 | PTCARENOTE ---
Pt assessment unchanged. NSR on monitor. VSS. pt resting comfortably in bed. labs drawn and sent. call golden within reach. will continue to monitor.
[2024-05-28 04:02] VITALS: BMI 36.8
[2024-05-28 04:46] LABS: % Basophils 0.7 % (0-2); % Eosinophils 1.9 % (0-6); % Immature Granulocytes 0.7 % (0-0.5); % Lymphocytes 16.7 % (20.5-51.1); % Monocytes 7.8 % (1.7-9.3); % Neutrophils 72.2 % (42.2-75.2); Absolute Basophils 0.1 10^3/uL (0-0.2); Absolute Eosinophils 0.3 10^3/uL (0-0.7); Absolute Immature Granulocytes 0.1 10^3/uL (0-0.05); Absolute Lymphocytes 2.4 10^3/uL (1.2-3.4); Absolute Monocytes 1.1 10^3/uL (0.1-0.6); Absolute Neutrophils 10.5 10^3/uL (1.4-6.5); Hematocrit 35.8 % (37.0-47.0); Hemoglobin 11.9 g/dL (12.0-16.0); Mean Corp Hgb Conc. 33.2 g/dL (33.0-37.0); Mean Corpuscular Hgb 30.8 pg (27.0-31.0); Mean Corpuscular Volume 92.7 fL (81.0-99.0); Mean Platelet Volume 11.4 fL (7.4-10.4); Nucleated Red Blood Cells % 0 %; Platelet Count 203 10^3/uL (130-400); Red Blood Cell Count 3.86 10^6/uL (4.20-5.40); Red Cell Dist. Width 13.7 % (11.5-14.5); White Blood Cell Count 14.6 10^3/uL (4.8-10.8)
[2024-05-28 04:48] LABS: Blood Urea Nitrogen 29 mg/dl (7-17); Calcium 9.2 mg/dl (8.4-10.2); Carbon Dioxide 29 mmol/L (22-30); Chloride 99 mmol/L (98-107); Estimated Creatinine Clearance 55 ml/min; Glucose 153 mg/dl (70-99); Potassium 3.8 mmol/L (3.5-5.1); Sodium 139 mmol/L (135-145); eGFR 54.39
[2024-05-28 08:00] VITALS: BMI 36.8
[2024-05-28 08:44] VITALS: BP 107/60
[2024-05-28 08:45] VITALS: BP 107/60
[2024-05-28] MEDS: NOVOLOG FLEXPEN-LOW RESISTANCE SC ×2 (08:50→12:00)
[2024-05-28] MEDS: MIRALAX 17 GRAMS PO (08:51)
[2024-05-28] MEDS: NICODERM TRANSDERMAL 14 MG TRANSDERM (08:51)
[2024-05-28 08:52] LABS: Glucose - Point of Care 149 mg/dl (70-99)
[2024-05-28] MEDS: KCL 20 MEQ PO (08:52)
[2024-05-28] MEDS: CARDIZEM CD 120 MG PO (08:52)
[2024-05-28] MEDS: CYMBALTA DELAYED RELEASE 90 MG PO (08:52)
[2024-05-28] MEDS: ELIQUIS 5 MG PO (08:53)
[2024-05-28] MEDS: FARXIGA 10 MG PO (08:53)
--- NOTE | 2024-05-28 09:22 | W.PN.CD ---
Addendum entered and electronically signed by Allegra Acevedo MD 05/28/24 10:36:
I saw and examined the patient.
The VP SOFTWARE ENGINEERING or PA's note was reviewed and I agree with the note.
Comment: She is feeling well. She had some palpitations briefly but no associated symptoms. Review of tele shows sinus and 9 sec psvt, no fib. She is a regular rate and rhythm normal S1-S2 normal rubs gallops were appreciated lungs were clear to
auscultation bilaterally no extremity edema. Overall, she appears euvolemic. Given she has had a great response to SGLT2 inhibitor and is on a GLP-1 agonist, we will hopefully move to as needed Lasix. Would send home with as needed 40 mg p.o.
furosemide with 40 mEq of KCl on days she takes Lasix. She will keep a chart of her weights and take if she gains 3 pounds or more in a day, or 5 pounds in 5 days. She will call the office if she needs to take Lasix more than 3 days. Her rhythm
is currently sinus. Agree with diltiazem and Eliquis. We will arrange for close follow-up given her recent admission for heart failure and now new atrial fibrillation. From a cardiovascular perspective there is no contraindication to discharge
today.
Original Note:
Today's Communication / Plan
-
Continue diltiazem
Impression / Plan
-
BACKGROUND: 68F with HFpEF, PHTN, LAFB, dilated aortic root, DM, asthma and tobacco abuse (quit smoking since d/c 05/18/24), who presents to the ER with c/o diaphoresis, dizziness, and palpitations
Elect Equip Maint Eng: Dr. Acevedo
Atrial fibrillation with RVR, new onset.
- c/o diaphoresis, palpitations and dizziness for the last several days.
- On Diltiazem CD 120mg daily (avoiding BB therapy due to asthma history)
- Anticoagulation: Eliquis 5mg BID, case management consult for pricing.
- [id number] VASC score is 4 (female, age, DM, CHF)
HFpEF, chronic - with right sided systolic dysfunction.
- dry on admission and Lasix held.
- at discharge will reduce home Lasix to PRN
- continue sodium/fluid restrictions, daily weights.
- continue Jardiance.
- reviewed HF guidelines for weight loss/gain at home, she verbalized understanding.
PHTN - moderate on echo 05/16/24 as below.
- due to diastolic failure, but with pulmonary disease and mild hypokinesis of RV, may be some pulmonary etiology as well.
Hypokalemia, in the setting of overdiuresis, resolved
Type II DM, Hgba1c 6.6%, per primary
Obesity - chronic, on Mounjaro.
Tobacco use - stopped smoking since hospital discharge 05/18/24.
SUBJECTIVE:
Some palpitations this morning with tachycardia (pSVT vs AT?)
DATA:
Echo, 05/16/24:
Normal left ventricular size and systolic function.
Stage III diastolic dysfunction suggestive of restrictive filling pattern and
increased filling pressures.
Normal right ventricular size with hypokinesis of the free wall.
Mild to moderate mitral regurgitation, may be underestimated due to acoustic
shadowing.
Moderate pulmonary hypertension.
Trivial pericardial effusion. Pleural effusion present.
Compared to the prior echo images on 08/02/23, the right ventricular systolic
function is now depressed. Moderate pulmonary hypertension is now seen.
Physical Exam
Vital Signs/Labs
Vital Signs
Temp Pulse Resp BP Pulse Ox
97.7 F 83 18 107/60 95
05/28/24 08:45 05/28/24 08:45 05/28/24 08:45 05/28/24 08:45 05/28/24 08:45
05/27/24 05/28/24 05/29/24
06:59 06:59 06:59
Actual Weight 96.9 kg 97.1 kg
05/28/24 04:00
05/28/24 04:00
APTT Cancelled 05/27/24 13:00
Magnesium 3.0 mg/dl (1.6-2.3) H 05/27/24 06:38
05/26/24
15:37
Zqk-W-Htbhircpncs Pept 973
LAB Results
05/26/24
15:37
Troponin I 0.014
Physical Exam
Constitutional: No acute distress and Comfortable
EENT: Anicteric and Moist mucous membranes
Cardiovascular: Rhythm & rate is regular, Pedal edema is absent and S1S2 is normal
Respiratory: Respiratory effort normal and Lungs clear to auscul.
GI: Soft, Distention absent, Flat, Non tender and Normal bowel sounds
Neuro/Psych: AO x 3
Other: Skin (warm and dry)
Data Reviewed
-
Date of Service: May 28, 2024
Echo: Report Reviewed by me
Labs: Labs Reviewed by me
--- NOTE | 2024-05-28 10:44 | W.PN.HOSP.TC ---
Today's Communication/Plan
-
Monitor vital signs
see plan
Continue with Shakeel Bazan
Per cardiology, DC on as needed Lasix
time of discharge 38 minutes
Assessment / Plan
Assessment / Plan
General: Comfortable and Conversant
HEENT: Anicteric and Moist mucous membranes
Respiratory: Clear and Non Labored Respirations
Cardiac: S1/S2, regular Rhythm
GI: Soft and Non Tender
Musculoskeletal: No Clubbing, No Cyanosis and Other (Trace/+1 Edema Bilateral Lower Ext)
Neuro: Awake, Alert, Oriented and No Motor Deficits
Psych: Calm
Atrial Fibrillation with Rapid Ventricular Response - New Diagnosis
Now converted to normal sinus rhythm
Now on p.o. Cardizem
Transition to Eliquis, director case consulted for cost
-Cardiology following
Leukocytosis likely secondary to stress
Monitor
CXR with improved PNA; procal was neg last admission so abx was stopped
Hypokalemia, likely related to diuretics
-Replace potassium
Monitor
Renal insufficiency, suspect patient maybe overdiuresis
Chronic Diastolic Heart Failure
-Continue Jardiance
-Hold Lasix as above; on dc ok for PRN lasix per weight per cards recs
-Monitor Daily Weights
Diabetes Mellitus, Type 2
-Hgb1c 6.6 in Apr 2024
-Patient maintained on Mounjaro as outpatient
-Continue Jardiance
Diabetes education
Hyperlipidemia
-Continue Lipitor
Depression/Mood Disorder
-Continue Cymbalta
Morbid Obesity due to Excess Calories
-Encourage weight loss
-Patient using Mounjaro as outpatient
Tobacco Use Disorder
-Continue nicotine patch
-Continue smoking cessation
DVT proph: Eliquis
Code Status: Full Code
Anticipated Discharge: Today
Subjective/Interval History
-
Date of Service: May 28, 2024
denies chest pain
Objective Data
-
Labs:
Laboratory Results
05/28/24
04:00
WBC 14.6 H
Hgb 11.9 L
Hct 35.8 L
Plt Count 203 D
Sodium 139
Potassium 3.8
Chloride 99
Carbon Dioxide 29
BUN 29 H
Creatinine 1.1 H
Glucose 153 H
Calcium 9.2
Vital Signs:
Vital Signs
Temp Pulse Resp BP Pulse Ox
97.7 F 83 18 107/60 95
05/28/24 08:45 05/28/24 08:45 05/28/24 08:45 05/28/24 08:45 05/28/24 08:45
I&O
05/27/24 05/28/24 05/29/24
06:59 06:59 06:59
Intake Total 960 / 960
Output Total 250 / 250 250 / 250
Balance -250 / -250 710 / 710
--- NOTE | 2024-05-28 10:54 | W.DCSUMMARY ---
Discharge Summary
Discharge Data
Date of Admission: 05/26/24
Date of Discharge: 05/28/24
-
Pending Results: No
Hospital Course
68-year-old female with past medical history of diastolic congestive heart failure, diabetes mellitus, hyperlipidemia, depression, morbid obesity, tobacco use disorder came to the hospital with new onset atrial fibrillation with RVR which was likely
thought to be secondary to hypokalemia. Patient initially was started on IV Cardizem which was later transitioned to p.o. Cardizem. She was able to convert back to normal sinus rhythm prior to discharge. Initially she was on IV heparin which was
later transitioned to oral Eliquis prior to discharge. She also had mild renal insufficiency which was likely thought was secondary to overdiuresis. On discharge cardiology recommended patient to be discharged on as needed Lasix along with
potassium supplement. Once patient symptoms continue to improve, she was then discharged home with instructions to follow-up with all her physicians outpatient.
Discharge Plan
-
Patient Disposition: Home (Routine Discharge)
Discharge Diagnosis/Procedures: Atrial fibrillation with rapid ventricular rate
Leukocytosis
Hypokalemia
Renal insufficiency
Chronic diastolic congestive heart failure
Diet: 2 Gram Sodium and Restrict fluids to 48 oz
Activity: As tolerated
Driving Restrictions: As prior to admission
Specialty Instructions: Weigh Daily- Call MD for wt gain/loss 3 lbs overnight/5 lbs in 1 week
Activity Restrictions/Additional Instructions:
as needed 40 mg p.o. furosemide with 40 mEq of KCl on days you take Lasix. keep a chart of your weights and take if you gains 3 pounds or more in a day, or 5 pounds in 5 days
Referrals:
Rupali Kelly CRNP [Specified Professional Personl] - 06/13/24 10:40 am
Mady Quarles MD [Family Provider] - in less than 1 week
Prescriptions:
New
Eliquis 5 mg Tablet
5 mg PO BID Qty: 60 0RF
nicotine 14 mg/24 hr Patch 24 Hour
14 mg transdermal DAILY Qty: 14 0RF
polyethylene glycol 3350 [HealthyLax] 17 gram Powder In Packet
17 g PO DAILY Qty: 0 0RF
diltiazem HCl 120 mg Capsule,Extended Release 24hr
120 mg PO DAILY Qty: 30 0RF
furosemide [Lasix] 40 mg tablet
40 mg PO DAILY PRN (Reason: Weight gain) Qty: 30 0RF
Rx Instructions:
gains 3 pounds or more in a day, or 5 pounds in 5 days
potassium chloride 20 mEq tablet extended release
40 meq PO DAILY PRN (Reason: take with lasix) Qty: 30 0RF
Continued
atorvastatin [Lipitor] 20 mg Tablet
20 mg PO QPM
duloxetine [Cymbalta] 30 mg Capsule,Delayed Release(Dr/Ec)
90 mg PO DAILY
cholecalciferol (vitamin D3) [Vitamin D3] 25 mcg (1,000 unit) Tablet
25 mcg PO QPM
Visbiome 112.5 billion cell Capsule
1 cap PO DAILY
Mounjaro 2.5 mg/0.5 mL Pen Injector
2.5 mg SC SA
Rx Instructions:
for 4 weeks
Jardiance 10 mg Tablet
10 mg PO DAILY
Discontinued
furosemide 80 mg Tablet
80 mg PO DAILY 30 Days Qty: 30 0RF
Discharge Orders:
Discharge Patient (As Directed); Ordered 05/28/24
Ordered By: Jos Barroso
Care Plan Goals
Care Plan Goals:
Problem: Readiness for enhanced knowledge related to diagnosis and treatment plan
Goal: Understand your diagnosis and treatment plan needs, including medications if applicable.
Instructions: Know your diagnosis, underlying causes and treatment plan options, including medications if applicable. Consult with your health care team to learn about your diagnosis and treatment plan, including medications if applicable.
Discharge Date and Time
Discharge Date/Time: 05/28/24 14:59
Print Language: PUERTO RICAN
--- NOTE | 2024-05-28 11:40 | PTCARENOTE ---
Burst of a fibb to the 140's asymptomatic then back to NSR. Dr. Acevedo made aware of same. No new orders at this point. Patient ok to dc to home.
[2024-05-28 11:49] VITALS: BP 96/55
[2024-05-28 13:34] VITALS: BP 98/67
--- NOTE | 2024-05-28 14:50 | PTCARENOTE ---
DC instructions given. Patient does have a follow up with her primary care physician who will address her intermediate risk of sleep apnea.
== END 2024-05-28 14:59 | disposition home or self-care (01) | DRG 641 ==
LOC: IVU 19:23
PROVIDERS: Internal Medicine Cardiovascular Disease; Physician Assistant; Physician Assistant Medical; ADMITTING PHYSICIAN Hospitalist; ATTENDING PHYSICIAN Internal Medicine; EMERGENCY PHYSICIAN Emergency Medicine; FAMILY PHYSICIAN Family Medicine; OTHER PHYSICIAN Internal Medicine
DX: E87.6 Hypokalemia (principal); I50.32 Chronic diastolic (congestive) heart failure; I48.91 Unspecified atrial fibrillation; E11.9 Type 2 diabetes mellitus without complications; E78.5 Hyperlipidemia, unspecified; F32.A Depression, unspecified; F17.210 Nicotine dependence, cigarettes, uncomplicated; I34.0 Nonrheumatic mitral (valve) insufficiency; I77.810 Thoracic aortic ectasia; J45.909 Unspecified asthma, uncomplicated; I27.29 Other secondary pulmonary hypertension; D72.829 Elevated white blood cell count, unspecified; E66.01 Morbid (severe) obesity due to excess calories; T50.1X5A Adverse effect of loop [high-ceiling] diuretics, initial encounter; N28.9 Disorder of kidney and ureter, unspecified; Z88.2 Allergy status to sulfonamides; Z79.899 Other long term (current) drug therapy; Z68.36 Body mass index [BMI] 36.0-36.9, adult; Z79.84 Long term (current) use of oral hypoglycemic drugs; Z79.85 Long-term (current) use of injectable non-insulin antidiabetic drugs
CPT/HCPCS: 71045; 80048; 80053; 82962; 83735; 83880; 84132; 84443; 84484; 85025; 85027; 85730; 93005; 96374; 96375; 99285; 99406

== ENCOUNTER → 2024-06-01 09:10 | Outpatient (REF) | payer MEDICARE, SELFPAY | LOC: RAD 09:10 | PROVIDERS: ATTENDING PHYSICIAN Family Medicine | DX: I50.22 Chronic systolic (congestive) heart failure (principal); R91.8 Other nonspecific abnormal finding of lung field | CPT/HCPCS: 71046 ==

== ENCOUNTER → 2024-06-07 09:31 | Outpatient (REF) | payer MEDICARE, SELFPAY | LOC: RCS 09:31 | PROVIDERS: ATTENDING PHYSICIAN Internal Medicine Cardiovascular Disease; FAMILY PHYSICIAN Family Medicine | DX: R00.2 Palpitations (principal); R53.83 Other fatigue; R53.1 Weakness; R06.09 Other forms of dyspnea | CPT/HCPCS: 93005; 93225; 93226 ==

== ENCOUNTER 2024-06-09 15:27 | Inpatient (IN) | payer MEDICARE, SELFPAY ==
[2024-06-09] VITALS (13 sets, daily range): BP systolic 96–152; BP diastolic 58–114; BMI 39.4; BMI 37.0
[2024-06-09 09:54] LABS: % Basophils 0.7 % (0-2); % Eosinophils 2.5 % (0-6); % Immature Granulocytes 0.9 % (0-0.5); % Lymphocytes 17.4 % (20.5-51.1); % Monocytes 9.8 % (1.7-9.3); % Neutrophils 68.7 % (42.2-75.2); Absolute Basophils 0.1 10^3/uL (0-0.2); Absolute Eosinophils 0.2 10^3/uL (0-0.7); Absolute Immature Granulocytes 0.1 10^3/uL (0-0.05); Absolute Lymphocytes 1.5 10^3/uL (1.2-3.4); Absolute Monocytes 0.9 10^3/uL (0.1-0.6); Hematocrit 33.3 % (37.0-47.0); Hemoglobin 11.1 g/dL (12.0-16.0); Mean Corp Hgb Conc. 33.3 g/dL (33.0-37.0); Mean Corpuscular Hgb 31.4 pg (27.0-31.0); Mean Corpuscular Volume 94.1 fL (81.0-99.0); Mean Platelet Volume 10.3 fL (7.4-10.4); Nucleated Red Blood Cells % 0.2 %; Platelet Count 243 10^3/uL (130-400); Red Blood Cell Count 3.54 10^6/uL (4.20-5.40); Red Cell Dist. Width 14.6 % (11.5-14.5); White Blood Cell Count 8.7 10^3/uL (4.8-10.8)
[2024-06-09 10:11] LABS: INR 1.35; PT 16.5 Sec (11.4-14.6)
[2024-06-09 10:20] LABS: Troponin I < 0.012 ng/ml
--- NOTE | 2024-06-09 10:20 | ED.GENMED ---
History of Present Illness
<Mayur Suazo PA-C - Last Filed: 06/09/24 13:14>
General
Chief Complaint: Breathing Problem
Source: patient and records
Time Seen by Provider: 06/09/24 09:48
History of Present Illness
History of Present Illness:
68-year-old female with past medical history of atrial fibrillation, insulin-dependent diabetes, recently diagnosed CHF, pericardial effusion and mild kidney injury presenting back to the emergency department for worsening exertional shortness of
breath that has been ongoing for around 1 week. Patient was initially in the hospital for pericardial effusion at the end of April, discharged home on diuretics which she had been taking as prescribed and subsequently developed atrial fibrillation
which was thought to be related to overdiuresis and ended up back in the hospital for another 2 days and anticoagulated. Patient was dropping off her Holter monitor to cardiology today when she expressed her shortness of breath and was recommended
to come back to the ER for further evaluation patient has no other symptoms and states the shortness of breath is only with exertion. She denies any fevers/chills or rigors, coughing, chest pain, pleurisy, hemoptysis. Patient reports good
compliance with her Eliquis and medications as prescribed. She does note that after her first admission to the hospital she had quit smoking. No other concerns
Past History
<Mayur Suazo PA-C - Last Filed: 06/09/24 13:14>
Past History
ED Past Medical History: Arrthythmia, CHF, HTN, IDDM and Psychiatric
ED Past Surgical History: Appendectomy, Orthopedic and Urological
Patient has exhibited threatening behavior?: No
Social History
Tobacco: Former smoker (Quit a month and a half ago)
Alcohol: None
Drug: None
Personal:
Living: alone
Employment: Employed
Review of Systems
<Mayur Suazo PA-C - Last Filed: 06/09/24 13:14>
Review of Systems
All Other Systems: ROS reviewed and negative except as documented in HPI and ROS
Phy Exam
<Mayur Suazo PA-C - Last Filed: 06/09/24 13:14>
Physical Exam
Physical Exam:
GENERAL: Alert , in no apparent distress
HEAD: NCAT
EYE: clear conjunctiva
NECK: Supple.
ENT: o/p clr, mmm.
CARDIAC: Regular rate and rhythm .
LUNGS: Faint rales bilateral base, no acute respiratory distress, no accessory muscle use,
ABDOMEN: Soft, without focal tenderness, no r/g, no cvat
NEUROLOGICAL: Alert and oriented
SKIN: Warm and dry, skin intact.
MUSCULOSKELETAL: trace left ankle edema, well perfused.
PSYCH: Normal and appropriate interaction.
Scores
<Mayur Suazo PA-C - Last Filed: 06/09/24 13:14>
Heart Failure Risk
Heart Failure Risk Score: Yes
History of Stroke or TIA: No
History of intubation for respiratory distress: No
Heart rate on ED arrival >/= 110: No
SaO2 <90% on arrival on room air: Yes
HR >/=110 during 3min walk test (or too ill to perform test): Yes
ECG has acute ischemic changes: No
Urea >/=12mmol/L (BUN 33.6mg/dL): No
Serum CO2>/=35mmol/L: No
Troponin I or T elevated to KS Level (0.4mg/dL): No
NT-proBNP >/=5,000ng/L (5,000pg/ml): No
HF Risk Score: 3
Admission Status: HIGH RISK 15.9% Consider SNF treatment or admission to hospital
Heart Score for Chest Pain Patients
STEMI patient?: Not applicable
Withdrawal Assessment of Alcohol
Withdrawal Assessment Completed?: Not applicable
Course
<Mayur Suazo PA-C - Last Filed: 06/09/24 13:14>
Orders/Labs/Results
Orders:
Orders
06/09/24 09:27
EKG [Electrocardiogram (*1)] Urgent
Reason for Study: Shortness of Breath
EKG- Treatment ONCE
06/09/24 09:35
CR Chest - 2 Views Urgent
Comment:
Reason For Exam: SOB
06/09/24 09:40
Complete Blood Count/With Diff Urgent
Comprehensive Metabolic Panel Urgent
NT-proBNP Urgent
Comment: ADD ON
Prothrombin Time Urgent
Troponin I Urgent
06/09/24 09:51
Add On- LAB Urgent
Tests Added?: pro-bnp
06/09/24 09:53
COVID-19 Antigen Urgent
Source: Nasal Swab
Influenza A+B Rapid Molecular Urgent
RUSTY Source: Nasal Swab
Specimen Description:
06/09/24 11:53
Furosemide [Lasix] 40 mg IV NOW STA
Abnormal Lab Results
06/09/24
09:40
RBC 3.54 L 10^6/uL
(4.20-5.40)
Hgb 11.1 L g/dL
(12.0-16.0)
Hct 33.3 L %
(37.0-47.0)
MCH 31.4 H pg
(27.0-31.0)
RDW 14.6 H %
(11.5-14.5)
Abs Immat Gran (auto) 0.1 H 10^3/uL
(0-0.05)
Absolute Monos (auto) 0.9 H 10^3/uL
(0.1-0.6)
Immature Gran % 0.9 H %
(0-0.5)
Lymphocytes % 17.4 L %
(20.5-51.1)
Monocytes % 9.8 H %
(1.7-9.3)
PT 16.5 H Sec
(11.4-14.6)
Carbon Dioxide 17 L mmol/L
(22-30)
BUN 20 H mg/dl
(7-17)
Glucose 150 H mg/dl
(70-99)
Total Protein 5.9 L g/dl
(6.3-8.2)
06/09/24 09:40
06/09/24 09:40
Vital Signs
Initial and Last Documented VS:
Initial Vital Signs
Temp Pulse Resp BP Pulse Ox
99.6 F 97 20 128/104 96
06/09/24 09:22 06/09/24 09:22 06/09/24 09:22 06/09/24 09:22 06/09/24 09:22
Last Documented Vital Signs
Temp Pulse Resp BP Pulse Ox
99.6 F 88 21 111/65 94
06/09/24 09:22 06/09/24 12:05 06/09/24 12:00 06/09/24 12:03 06/09/24 12:05
<Shawn Curry, DO - Last Filed: 06/09/24 12:30>
Orders/Labs/Results
Orders:
Orders
06/09/24 09:27
EKG [Electrocardiogram (*1)] Urgent
Reason for Study: Shortness of Breath
EKG- Treatment ONCE
06/09/24 09:35
CR Chest - 2 Views Urgent
Comment:
Reason For Exam: SOB
06/09/24 09:40
Complete Blood Count/With Diff Urgent
Comprehensive Metabolic Panel Urgent
NT-proBNP Urgent
Comment: ADD ON
Prothrombin Time Urgent
Troponin I Urgent
06/09/24 09:51
Add On- LAB Urgent
Tests Added?: pro-bnp
06/09/24 09:53
COVID-19 Antigen Urgent
Source: Nasal Swab
Influenza A+B Rapid Molecular Urgent
RUSTY Source: Nasal Swab
Specimen Description:
06/09/24 11:53
Furosemide [Lasix] 40 mg IV NOW STA
Abnormal Lab Results
06/09/24
09:40
RBC 3.54 L 10^6/uL
(4.20-5.40)
Hgb 11.1 L g/dL
(12.0-16.0)
Hct 33.3 L %
(37.0-47.0)
MCH 31.4 H pg
(27.0-31.0)
RDW 14.6 H %
(11.5-14.5)
Abs Immat Gran (auto) 0.1 H 10^3/uL
(0-0.05)
Absolute Monos (auto) 0.9 H 10^3/uL
(0.1-0.6)
Immature Gran % 0.9 H %
(0-0.5)
Lymphocytes % 17.4 L %
(20.5-51.1)
Monocytes % 9.8 H %
(1.7-9.3)
PT 16.5 H Sec
(11.4-14.6)
Carbon Dioxide 17 L mmol/L
(22-30)
BUN 20 H mg/dl
(7-17)
Glucose 150 H mg/dl
(70-99)
Total Protein 5.9 L g/dl
(6.3-8.2)
06/09/24 09:40
06/09/24 09:40
Vital Signs
Initial and Last Documented VS:
Initial Vital Signs
Temp Pulse Resp BP Pulse Ox
99.6 F 97 20 128/104 96
06/09/24 09:22 06/09/24 09:22 06/09/24 09:22 06/09/24 09:22 06/09/24 09:22
Last Documented Vital Signs
Temp Pulse Resp BP Pulse Ox
99.6 F 88 21 111/65 94
06/09/24 09:22 06/09/24 12:05 06/09/24 12:00 06/09/24 12:03 06/09/24 12:05
<Mayur Suazo PA-C - Last Filed: 06/09/24 13:14>
MDM/Problems Addressed
Differential Diagnosis Includes:
CHF, pulmonary HTN, recurring pericardial effusion, arrythmia, anemia, electrolyte derrangement
MDM/Problems Addressed:
68-year-old female presenting to the emergency department for evaluation of worsening exertional dyspnea, sent to the ER by cardiology after dropping off her Holter monitor earlier this morning. On arrival to the emergency department patient was
found to be satting 88% room air so was placed on 2 L via nasal cannula. She is otherwise in no acute respiratory distress. Labs ordered as well as chest x-ray. Disposition pending workup findings.
Chronic conditions affecting care: Arrhythmia
<Mayur Suazo PA-C - Last Filed: 06/09/24 13:14>
*Pulse Oximetry
Patient hypoxic: yes
*EKG
Interpreted by ED Provider?: Yes
Comparison EKG: no changes
Heart Rate: 96
Rate: normal
Rhythm: sinus and PVC's
QRS Pattern: low voltage
*Title Supervisor Interpretation
Rate: normal
Rhythm: sinus
*Critical Care Note
Total Time (30-74mins, 75-104mins- exclusive of procedures): Not Applicable
Data Reviewed
Review of Other/Old Records Reveals: Labs, Records and Discharge Summary
Source: patient and records
<Mayur Suazo PA-C - Last Filed: 06/09/24 13:14>
Patient Management
Discussion with other providers: Hospitalist
Escalation/DeEscalation of care consider admission/obs:
Patient CXR shows worsening pulmonary edema and mild bilateral pleural effusion. Given her hypoxia on arrival with worsening CXR and symptoms will admit for further treatment with IV diuresis. Anticipate cardiology consult. Hospitalist team is aware
and accepts for continued evaluation and treatment
ED Attending Note
<Mayur Suazo PA-C - Last Filed: 06/09/24 13:14>
-
Portions of this chart may have been created with voice recognition software.� Occasional wrong word or��sound alike� substitutions may have occurred due to the inherent limitations of voice recognition software.
<Shawn Curry DO - Last Filed: 06/09/24 12:30>
ED Attending Note
Patient seen and examined by attending physician: Yes
I performed the substantive portion of visit, reviewed & personally made and approve the management plan that is documented in note by myself or RENETTA.: Yes
ED Attending Note:
68-year-old who presents with persistent shortness of breath. She states she really has not had much relief since recent hospitalization. She recently in a Holter monitor. She became very short of breath when returning it. She was advised to
come to the emergency department. She does have a history of trace pericardial effusion noted on echocardiogram. Patient does admit to mild orthopnea. Bedside ultrasound does show some pericardial fluid but I do think it is mild in nature but
likely could benefit from repeat echocardiogram. Certainly no evidence of tamponade. Diurese. Admit
Discharge Plan
Departure
Patient Disposition: Admit
Date of Disposition: 06/09/24
Time of Disposition: 11:54
Presentation/result/management discussed w/ accepting MD/DO: Hospitalist
Discharge Problem:
Pulmonary edema, Pleural effusion
Prescriptions:
No Action
atorvastatin [Lipitor] 20 mg Tablet
20 mg PO QPM
duloxetine [Cymbalta] 30 mg Capsule,Delayed Release(Dr/Ec)
30 mg PO DAILY
Patient Comments:
06/09/2024: taken w/ 60mg = 90mg
cholecalciferol (vitamin D3) [Vitamin D3] 25 mcg (1,000 unit) Tablet
25 mcg PO QPM
Visbiome 112.5 billion cell Capsule
1 cap PO DAILY
Mounjaro 2.5 mg/0.5 mL Pen Injector
2.5 mg SC SA
Rx Instructions:
for 4 weeks
Jardiance 10 mg Tablet
10 mg PO DAILY
Eliquis 5 mg Tablet
5 mg PO BID Qty: 60 0RF
diltiazem HCl 120 mg Capsule,Extended Release 24hr
120 mg PO DAILY Qty: 30 0RF
albuterol sulfate 90 mcg/actuation HFA aerosol inhaler
1 puff INHALATION R Q4HPRN PRN (Reason: sob/wheezing)
nicotine 7 mg/24 hr Patch 24 Hour
7 mg TRANSDERMAL DAILY
duloxetine 60 mg capsule,delayed release(DR/EC)
60 mg PO DAILY
Patient Comments:
06/09/2024: taken w/ 30mg = 90mg
furosemide [Lasix] 40 mg tablet
40 mg PO DAILYPRN PRN (Reason: Weight gain)
Rx Instructions:
gains 3 pounds or more in a day, or 5 pounds in 5 days
potassium chloride 20 mEq tablet extended release
40 meq PO DAILYPRN PRN (Reason: take with lasix)
Referrals:
Mady Quarles MD [Family Provider] -
Interventions
Interventions:
*Risk Screen - Suicide Last Done: 06/09/24 09:22
*General Assessment Last Done: 06/09/24 09:22
*Neglect/Abuse Screening Last Done: 06/09/24 09:22
*ED COVID-19 Vaccine History Last Done: 06/09/24 09:22
ED- Cardiac Assessment Last Done: 06/09/24 09:50
ED- Pulmonary Assessment Last Done: 06/09/24 09:48
Discharge Date and Time
Print Language: BOTSWANAN
[2024-06-09 10:28] LABS: COVID-19 Antigen Negative (Negative)
[2024-06-09 10:39] LABS: NT-proBNP 1320 pg/ml
[2024-06-09 10:47] LABS: ALT (SGPT) 20 U/L (0-35); AST (SGOT) 22 U/L (14-36); Albumin 3.7 g/dl (3.5-5.0); Alkaline Phosphatase 68 U/L (38-126); Blood Urea Nitrogen 20 mg/dl (7-17); Calcium 9.4 mg/dl (8.4-10.2); Carbon Dioxide 17 mmol/L (22-30); Chloride 107 mmol/L (98-107); Estimated Creatinine Clearance 69 ml/min; Glucose 150 mg/dl (70-99); Potassium 4.2 mmol/L (3.5-5.1); Sodium 141 mmol/L (135-145); Total Bilirubin 1.1 mg/dl (0.2-1.3); Total Protein 5.9 g/dl (6.3-8.2); eGFR > 60.00
[2024-06-09] MEDS: LASIX 40 MG IV ×2 (12:03→18:50)
--- NOTE | 2024-06-09 12:25 | HPS.HSE ---
Family Physician
-
Family Physician: Mady Quarles MD
Chief Complaint
-
Shortness of breath
History of Present Illness
68F HFpEF Morbid Obesity DM HLD Depression pAfib former Smoker p/w shortness of breath. Previously hospitalized here 05/26/24-05/28/24 for afib rvr since converted back to normal sinus rhythm. Discharged on as needed Lasix. Patient reports that
she never had to take Lasix as she noted no significant weight gain since discharge. While dropping off Holter monitor, patient was noted to be very short of breath and was subsequently referred to ED for evaluation. Hypoxic on room air 88%
patient required 2L to maintain saturation. CXR and elevated BNP suggestive Acute on chronic HFpEF. Weights here noted on [employer] suggest pt has gained 16 lbs since her last discharge. BP stable, afebrile, patient reports improvement in
breathing since Lasix and nasal cannula oxygen supplementation. Denies fever chills coughing sneezing nausea vomiting diarrhea constipation.
Medical History
Past Medical History
Past Medical History: Reports Other (as above)
Past Surgical History: Reports Other (as above)
Social History
Tobacco: Former Smoker
Alcohol: None
Drug: None
Personal:
Living: Alone
Family History
Family History: Not pertinent (reviewed)
Allergies / Home Medications
Allergies reflects when Allergies were last updated in [employer].
Home Medications with original date entered in [employer]
Allergy/Medication List:
Allergies
Allergy/AdvReac Type Severity Reaction Status Date / Time
Sulfa (Sulfonamide Allergy Shortness Verified 06/09/24 09:27
Antibiotics) of Breath
Home Medications
Lactobac no.2-Bifidobac no.1-S. thermo 112.5 billion cell capsule (Visbiome) 1 cap PO DAILY Gastrointestinal Issue 05/15/24
atorvastatin 20 mg tablet (Lipitor) 20 mg PO QPM High Cholesterol 05/15/24
cholecalciferol (vitamin D3) 25 mcg (1,000 unit) tablet (Vitamin D3) 25 mcg PO QPM Supplement 05/15/24
duloxetine 30 mg capsule,delayed release (Cymbalta) 30 mg PO DAILY Mental Health 05/15/24
tirzepatide 2.5 mg/0.5 mL subcutaneous pen injector (Mounjaro) 2.5 mg SC SA endocrine condition 05/15/24
empagliflozin 10 mg tablet (Jardiance) 10 mg PO DAILY diabetes 05/26/24
apixaban 5 mg tablet (Eliquis) 5 mg PO BID #60 tabs 05/28/24
diltiazem HCl 120 mg capsule,extended release 24 hr 120 mg PO DAILY #30 caps 05/28/24
albuterol sulfate 90 mcg/actuation aerosol inhaler 1 puff inhalation R Q4HPRN PRN sob/wheezing 06/09/24
duloxetine 60 mg capsule,delayed release 60 mg PO DAILY 06/09/24
furosemide 40 mg tablet (Lasix) 40 mg PO DAILYPRN PRN Weight gain 06/09/24
nicotine 7 mg/24 hr daily transdermal patch 7 mg transdermal DAILY 06/09/24
potassium chloride 20 mEq tablet,extended release 40 meq PO DAILYPRN PRN take with lasix 06/09/24
Review of Systems
-
A 12 point ROS was completed and negative except as noted: Yes
Constitutional: Reports Other (as below)
Physical Exam
Vital Signs
Vital Signs
Temp Pulse Resp BP Pulse Ox
99.6 F 88 21 111/65 94
06/09/24 09:22 06/09/24 12:05 06/09/24 12:00 06/09/24 12:03 06/09/24 12:05
Physical Exam
General: Other (as below)
Laboratory Results
-
06/09/24 09:40
06/09/24 09:40
Laboratory Results
PT 16.5 Sec (11.4-14.6) H 06/09/24 09:40
INR 1.35 06/09/24 09:40
Total Bilirubin 1.1 mg/dl (0.2-1.3) 06/09/24 09:40
AST 22 U/L (14-36) 06/09/24 09:40
ALT 20 U/L (0-35) 06/09/24 09:40
Alkaline Phosphatase 68 U/L (38-126) 06/09/24 09:40
Troponin I < 0.012 ng/ml 06/09/24 09:40
Impression/Plan
-
ROS
General: Denies fever chills night sweats unexpected weight loss
Neuro: Denies seizure shaking loss of consciousness dizziness vertigo
Psych: denies depression hallucinations confusion manic episodes
Endocrine: Denies polyuria polydipsia polyphagia heat/cold intolerance
HEENT: Denies blindness visual disturbances epistaxis
Pulmonary: denies coughing hemoptysis sneezing Reports sob dyspnea on exertion
Cardiovascular: denies chest pain palpitations reports left leg swelling a few days ago since resolved
Hematology: denies signs symptoms of anemia easy bruising/bleeding
Gastrointestinal: denies nausea vomiting diarrhea constipation hematemesis hematochezia melena
Genito-Urinary: denies retention incontinence dysuria
Musculoskeletal: denies joint pain weakness
Dermatology: denies rash laceration bruising
Physical Exam
General: No pallor, cyanosis, or jaundice.
HEENT: Throat clear. PERRLA Normocephalic atraumatic on nasal cannula oxygen supplementation
NECK: Supple. No JVD Carotid Bruits
RESPIRATORY: crackles
CVS: S1, S2 normal. RRR. No murmur, rub or gallop.
ABDOMEN: Soft, non-tender. No distension. BS+/normal.
EXTREMITIES: No peripheral cyanosis or edema.
PHOSPHORIC ACID SUPERVISOR: AOx3
IMPRESSION:
68F HFpEF Morbid Obesity DM HLD Depression pAfib former Smoker p/w shortness of breath. Previously hospitalized here 05/26/24-05/28/24 for afib rvr since converted back to normal sinus rhythm. Discharged on as needed Lasix. Patient reports that
she never had to take Lasix as she noted no significant weight gain since discharge. While dropping off Holter monitor, patient was noted to be very short of breath and was subsequently referred to ED for evaluation. Hypoxic on room air 88%
patient required 2L to maintain saturation. CXR and elevated BNP suggestive Acute on chronic HFpEF. Weights here noted on [employer] suggest pt has gained 16 lbs since her last discharge. BP stable, afebrile, patient reports improvement in
breathing since Lasix and nasal cannula oxygen supplementation. Denies fever chills coughing sneezing nausea vomiting diarrhea constipation.
PLAN:
#Acute HFpEF
Tele admit
CXR appreciated pulm edema small to mod b/l pleural effusions
Consider Chest US IR eval for thoracentesis if respiratory status does not improve with diuresis
daily weight I/O
IV lasix 40 mg BID
scheduled K 20 mEQ daily while on diuresis
monitor renal function
Cardio eval
cont Jardiance
#Morbid Obesity on Mounjaro
#DM recent A1c 6.6 borderline
cont home Jardiance
Carb controlled diet
hold off on routine fingersticks sliding scale for now
#paroxysmal Afib
cont home Eliquis
cont home Cardizem with holding parameters
#former Smoker
cont nicotine supplementation
dvt ppx Eliquis
Full Code
I spent a total of 78 minutes with the patient or on the floor. More than 50% of this time involved counseling and coordination of care.
[2024-06-09] MEDS: KCL 40 MEQ PO (16:33)
[2024-06-09] MEDS: VITAMIN D3 (cholecalciferol) 25 MCG PO (18:41)
[2024-06-09] MEDS: LIPITOR 20 MG PO (18:41)
[2024-06-09] MEDS: ELIQUIS 5 MG PO (20:29)
[2024-06-09 21:09] LABS: Troponin I < 0.012 ng/ml
[2024-06-10] VITALS (7 sets, daily range): BP systolic 106–124; BP diastolic 62–93; BMI 36.4
[2024-06-10 07:05] LABS: Hemoglobin 11.3 g/dL (12.0-16.0); Mean Corp Hgb Conc. 33.2 g/dL (33.0-37.0); Mean Corpuscular Hgb 30.4 pg (27.0-31.0); Mean Corpuscular Volume 91.4 fL (81.0-99.0); Mean Platelet Volume 10.4 fL (7.4-10.4); Platelet Count 260 10^3/uL (130-400); Red Blood Cell Count 3.72 10^6/uL (4.20-5.40); Red Cell Dist. Width 14.8 % (11.5-14.5); White Blood Cell Count 7.2 10^3/uL (4.8-10.8)
[2024-06-10 07:24] LABS: Blood Urea Nitrogen 19 mg/dl (7-17); Calcium 9.1 mg/dl (8.4-10.2); Carbon Dioxide 22 mmol/L (22-30); Chloride 104 mmol/L (98-107); Estimated Creatinine Clearance 60 ml/min; Glucose 132 mg/dl (70-99); Phosphorus 5.1 mg/dl (2.5-4.5); Sodium 141 mmol/L (135-145); eGFR > 60.00
[2024-06-10] MEDS: KCL 20 MEQ PO (07:49)
[2024-06-10] MEDS: FARXIGA 10 MG PO (07:49)
[2024-06-10] MEDS: CYMBALTA DELAYED RELEASE 60 MG PO (07:49)
[2024-06-10] MEDS: CYMBALTA DELAYED RELEASE 30 MG PO (07:49)
[2024-06-10] MEDS: ELIQUIS 5 MG PO ×2 (07:49→20:39)
[2024-06-10] MEDS: VISBIOME 1 CAP PO (07:50)
[2024-06-10] MEDS: CARDIZEM CD 120 MG PO (07:50)
[2024-06-10] MEDS: NICODERM TRANSDERMAL 7 MG TRANSDERM (07:50)
[2024-06-10] MEDS: LASIX 40 MG IV ×2 (07:50→16:15)
--- NOTE | 2024-06-10 08:24 | CON.CAR ---
Addendum entered and electronically signed by Brian Mckenna MD 06/10/24 10:58:
I saw and examined the patient.
The ELEMENTARY SCHOOL TUTOR's note was reviewed and I agree with the note.
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
- IV diuresis
- Dilt 60 mg q6 hr for AF RVR
Original Note:
Consultation
Consultation Request
Date/Time Consultation Requested: 06/09/24 1600
Date/Time Consultation Performed: 06/10/24 0820
Requesting Provider: Dr. Jarquin
Performing Provider: Cheli MITCHELL for Dr. Mckenna
Reason for Consultation: CHF
Medical History
-
Chief Complaint: SOB
History of Present Illness:
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 She
recently noted a 2 lb weight gain. She has orthopnea. She recently handed in holter monitor with results pending. Recall that she was recently hospitalized for new HFpEF and was started on Jardiance and furosemide 80 mg daily. For pSVT she was
started on diltiazem. She came back in with volume depletion and AFIB (new diagnosis). Lasix was changed to PRN and for AFIB she was started on Eliquis. She is back now for SOB as described in detail above. She is admitted with CHF exacerbation and
is feeling improved s/p IV lasix. She is in AFIB with RVR since this AM around 745- she is not symptomatic with this.
Past Medical History
Past Medical History: Arrhythmias, Asthma, CHF, Hypercholesterolemia and NIDDM
Social History
Tobacco: Former Smoker
Family History
Family History: Reviewed & Not Pertinent
Allergies / Home Medications
Allergy/AdvReac Type Severity Reaction Status Date / Time
Sulfa (Sulfonamide Allergy Shortness Verified 06/09/24 09:27
Antibiotics) of Breath
�Medication �Instructions �Recorded �Confirmed �Type
Lactobac no.2-Bifidobac no.1-S. 1 cap PO DAILY Gastrointestinal 05/15/24 06/09/24 History
thermo 112.5 billion cell capsule Issue
(Visbiome)
atorvastatin 20 mg tablet (Lipitor) 20 mg PO QPM High Cholesterol 05/15/24 06/09/24 History
cholecalciferol (vitamin D3) 25 25 mcg PO QPM Supplement 05/15/24 06/09/24 History
mcg (1,000 unit) tablet (Vitamin
D3)
duloxetine 30 mg capsule,delayed 30 mg PO DAILY Mental Health 05/15/24 06/09/24 History
release (Cymbalta)
tirzepatide 2.5 mg/0.5 mL 2.5 mg SC SA endocrine condition 05/15/24 06/09/24 History
subcutaneous pen injector
(Mounjaro)
empagliflozin 10 mg tablet 10 mg PO DAILY diabetes 05/26/24 06/09/24 History
(Jardiance)
apixaban 5 mg tablet (Eliquis) 5 mg PO BID #60 tabs 05/28/24 06/09/24 Rx
diltiazem HCl 120 mg 120 mg PO DAILY #30 caps 05/28/24 06/09/24 Rx
capsule,extended release 24 hr
albuterol sulfate 90 mcg/actuation 1 puff inhalation R Q4HPRN PRN 06/09/24 06/09/24 History
aerosol inhaler sob/wheezing
duloxetine 60 mg capsule,delayed 60 mg PO DAILY Depression 06/09/24 06/09/24 History
release
furosemide 40 mg tablet (Lasix) 40 mg PO DAILYPRN PRN Weight gain 06/09/24 06/09/24 History
nicotine 7 mg/24 hr daily 7 mg transdermal DAILY 06/09/24 06/09/24 History
transdermal patch
potassium chloride 20 mEq 40 meq PO DAILYPRN PRN take with 06/09/24 06/09/24 History
tablet,extended release lasix
Review of Systems
-
History Source: Patient
All other systems: Negative unless noted
Constitutional: Weight Gain
Respiratory: Trouble Breathing
Physical Exam
Vital Signs
Temp Pulse Resp BP Pulse Ox
98.1 F 87 14 113/66 98
06/10/24 07:21 06/10/24 07:50 06/10/24 07:21 06/10/24 07:50 06/10/24 07:21
Lab Results
06/10/24 06:28
06/10/24 06:28
Troponin I < 0.012 ng/ml 06/09/24 20:40
Qir-T-Hcejrefsckf Pept 1320 pg/ml 06/09/24 09:40
Physical Exam
General: Well Developed, Well Nourished and No Apparent Distress
HEENT: Normocephalic and Anicteric
Respiratory: Crackles (b/l bases) and Other (on O2 by NC)
Cardiac: Irregular Rhythm and Peripheral Edema (trace)
Skin: Warm and Dry
Neuro: AO x 3
Psych: Calm
Impression / Plan
-
Mmybs-xr-fheucqz HFpEF:
-weight in ER appears to have been erroneous. However, she appears volume overloaded to assessment.
-Echo 05/16/24: Normal left ventricular size and systolic function. Stage III diastolic dysfunction suggestive of restrictive filling pattern and increased filling pressures. Normal right ventricular size with hypokinesis of the free wall. Mild to
moderate mitral regurgitation, may be underestimated due to acoustic shadowing. Moderate pulmonary hypertension. Trivial pericardial effusion. Will check follow-up study since ER noted effusion at bedside, though reported mild.
-agree with IV lasix, which requires intensive monitoring
-of note, 80 mg daily was too much for patient, so she was adjusted to 40 mg PRN lasix, which she has not needed as OP- consider 20- 40 mg daily at d/c. Continue Jardiance.
AFIB, paroxysmal:
-was in SR on arrival, now in AFIB with RVR- no symptoms
-on diltiazem 120 mg daily- increase dose. BP stable.
-continue Eliquis for OAC
-await Holter monitor results
Smoker, former:
-recently quit, which I congratulated her on and encouraged her to continue this path
Data Reviewed
-
EKG: Tracing Personally Visualized and interpreted (SR with PVC's)
Radiology: Report Reviewed by me (CXR: Radiographic findings compatible with pulmonary edema pattern with small to moderate bilateral pleural effusions)
Medical Tests (Nuc Med, Echo etc): Report Reviewed by me (echo as noted )
Labs: Labs Reviewed by me
[2024-06-10 08:43] LABS: NT-proBNP 829 pg/ml
[2024-06-10] MEDS: CARDIZEM 60 MG PO (09:55)
[2024-06-10] MEDS: CARDIZEM 5 MG IV (11:50)
[2024-06-10] MEDS: SENOKOT-S 1 TABLET PO ×2 (11:50→20:39)
[2024-06-10] MEDS: CARDIZEM 125 IV (11:52)
--- NOTE | 2024-06-10 12:18 | CM ---
Reviewed chart, met with patient to obtain information for assessment. Patient stated that she lives alone in a two story townhouse with two steps to enter. She described herself as independent with all of her ADLs, personal care, dressing and
bathing. 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 She relayed that she has children nearby who are supportive and some close friends so if she does need anything she can defer to them
Patient has a prescription plan and uses, [facility] in [place] for all of her medications.
She has not had VN.
She denied any DME. Will watch for o2 needs as she has it inpatient.
Patient has not been to a SNF.
Patient has a prescription plan and uses, [facility] in [place] for all of her medications .
Patient is hoping to be able to return home when medically stable for discharge and is hoping to wean from o2.
Plan: Case management will continue to follow and assist with discharge planning. Home, will watch for VN or o2 needs.
--- NOTE | 2024-06-10 13:58 | W.PN.HOSP.TC ---
Today's Communication/Plan
-
switch to cardizem ggt for afib with rvr
continue iv diuresis, monitor Is&Os, daily weights
Assessment / Plan
Assessment / Plan
Physical Exam
General: Well Developed, Well Nourished and No Apparent Distress
HEENT: Normocephalic and Anicteric
Respiratory: Crackles (b/l bases) and Other (on O2 by NC)
Cardiac: Irregular Rhythm and Peripheral Edema (trace)
Skin: Warm and Dry
Neuro: AO x 3
Psych: Calm
#Acute HFpEF
daily weight I/O
IV lasix 40 mg BID
monitor renal function
Cardio eval
cont Jardiance
Echo 05/16/24: Normal left ventricular size and systolic function. Stage III diastolic dysfunction suggestive of restrictive filling pattern and increased filling pressures. Normal right ventricular size with hypokinesis of the free wall.
#paroxysmal Afib
cont home Eliquis
switched to cardizem ggt
#Morbid Obesity on Mounjaro
#DM recent A1c 6.6 borderline
cont home Jardiance
Carb controlled diet
#former Smoker
cont nicotine supplementation
-recently ceased smoking, i complimented her efforts
dvt ppx Eliquis
Full Code
Total time spent on today's encounter was 50 minutes which included time spent in counseling the patient/family regarding diagnosis and treatment plan as listed above, goals of care, and symptom management. Case was discussed with nursing staff,
specialists, and care coordinators/case management. All labs and imaging personally reviewed by me. Remainder the time spent in detailed review of previous records, lab data, imaging, and other medical provider documentation.
Anticipated Discharge: 24 - 48 hours
Subjective/Interval History
-
Date of Service: June 10, 2024
diaphoretic, tachycardic -afib with rvr this am
Objective Data
-
Labs:
Laboratory Results
06/10/24
06:28
WBC 7.2
Hgb 11.3 L
Hct 34.0 L
Plt Count 260
Sodium 141
Potassium 4.0
Chloride 104
Carbon Dioxide 22
BUN 19 H
Creatinine 1.0
Glucose 132 H
Calcium 9.1
Vital Signs:
Vital Signs
Temp Pulse Resp BP Pulse Ox
97.9 F 95 14 106/65 97
06/10/24 11:23 06/10/24 11:23 06/10/24 11:23 06/10/24 11:23 06/10/24 11:23
I&O
06/09/24 06/10/24 06/11/24
06:59 06:59 06:59
Intake Total 480 / 480
Output Total 2450 / 2450
Balance -1969 / -1969
Review of Systems
-
History Source: Patient
All other systems: Not reviewed unless documented
Physical Exam
-
General: Well Developed, No Apparent Distress and Morbidly Obese
HEENT: Normocephalic, Atraumatic and Moist Mucous Membranes
Respiratory: Clear to Auscultation and Non Labored Respirations; Negative Wheezes or Crackles
Cardiac: Regular Rhythm, S1/S2 and Murmur; Negative Rub or Gallop
GI: Soft, Nontender, Nondistended and Normal Bowel Sounds; Negative Organomegaly
Rectal: Deferred by Provider
Musculoskeletal: No Clubbing, No Cyanosis and No Edema
Skin: Negative Rash
Neuro: Awake, Alert, Oriented, AO x 3, No Motor Deficits and Nonfocal/Grossly Intact
Psych: Calm
Data Reviewed
-
Diagnostic Radiology: Image personally visualized and interpreted and Report Reviewed by me
Labs: Labs Reviewed by me
[2024-06-10] MEDS: VITAMIN D3 (cholecalciferol) 25 MCG PO (17:36)
[2024-06-10] MEDS: LIPITOR 20 MG PO (17:36)
[2024-06-11] VITALS (10 sets, daily range): BP systolic 99–121; BP diastolic 61–81; BMI 36.4
[2024-06-11] MEDS: CARDIZEM 125 IV (01:40)
[2024-06-11 07:17] LABS: Hematocrit 35.5 % (37.0-47.0); Mean Corp Hgb Conc. 33.8 g/dL (33.0-37.0); Mean Corpuscular Hgb 31.3 pg (27.0-31.0); Mean Corpuscular Volume 92.7 fL (81.0-99.0); Mean Platelet Volume 10.5 fL (7.4-10.4); Platelet Count 258 10^3/uL (130-400); Red Blood Cell Count 3.83 10^6/uL (4.20-5.40); Red Cell Dist. Width 14.4 % (11.5-14.5)
[2024-06-11] MEDS: NICODERM TRANSDERMAL 7 MG TRANSDERM (07:43)
[2024-06-11] MEDS: CYMBALTA DELAYED RELEASE 30 MG PO (07:44)
[2024-06-11] MEDS: VISBIOME 1 CAP PO (07:44)
[2024-06-11] MEDS: SENOKOT-S 1 TABLET PO ×2 (07:44→20:17)
[2024-06-11] MEDS: CYMBALTA DELAYED RELEASE 60 MG PO (07:44)
[2024-06-11] MEDS: ELIQUIS 5 MG PO ×2 (07:44→20:17)
[2024-06-11] MEDS: KCL 20 MEQ PO (07:44)
[2024-06-11] MEDS: FARXIGA 10 MG PO (07:45)
[2024-06-11] MEDS: LASIX 40 MG IV ×2 (07:45→17:01)
[2024-06-11 07:50] LABS: Blood Urea Nitrogen 19 mg/dl (7-17); Carbon Dioxide 26 mmol/L (22-30); Chloride 100 mmol/L (98-107); Estimated Creatinine Clearance 66 ml/min; Glucose 143 mg/dl (70-99); Potassium 3.4 mmol/L (3.5-5.1); Sodium 139 mmol/L (135-145); eGFR > 60.00
--- NOTE | 2024-06-11 07:56 | W.PN.CD ---
Today's Communication / Plan
-
stop iv diltiazme
iv amiodarone load
npo p mn---GIVE ELIQUIS IN AM
dccv in am
Impression / Plan
-
Aqwlg-zl-cehmogg HFpEF:
-weight in ER appears to have been erroneous. However, she appears volume overloaded to assessment.
-Echo 05/16/24: Normal left ventricular size and systolic function. Stage III diastolic dysfunction suggestive of restrictive filling pattern and increased filling pressures. Normal right ventricular size with hypokinesis of the free wall. Mild to
moderate mitral regurgitation, may be underestimated due to acoustic shadowing. Moderate pulmonary hypertension. Trivial pericardial effusion. Will check follow-up study since ER noted effusion at bedside, though reported mild.
-improving, agree with IV lasix, which requires intensive monitoring
-of note, 80 mg daily was too much for patient, so she was adjusted to 40 mg PRN lasix, which she has not needed as OP- consider 20- 40 mg daily at d/c. Continue Jardiance.
AFIB, paroxysmal:
-was in SR on arrival, now in AFIB with RVR- although seems to be the trigger for her heart failure
-will transition to IV amiodarone, for rhythm control as QTC >440
-will plan for temporary use with ultimate plan of ablation
-stop diltiazem 120
-continue Eliquis for OAC
-NPO after midnight for dccv tomorrow --has not missed Eliquis doses
Smoker, former:
-recently quit, which I congratulated her on and encouraged her to continue this path
Subjective;
feeling better, no cp or dizziness
TTE: 06/10/24
CONCLUSIONS
Normal LV size and function with no regional wall motion abnormalities.
LVEF is 60-65% by visual estimation.
Mild concentric LVH.
Normal RV size with mildly reduced systolic function.
Mild mitral regurgitation.
Trivial pericardial effusion.
Compared to prior from May 16, 2024, insufficient TR for estimation of PASP,
previously there was moderate pulmonary hypertension.
Physical Exam
Vital Signs/Labs
Vital Signs
Temp Pulse Resp BP Pulse Ox
99.6 F 111 16 114/81 98
06/11/24 06:59 06/11/24 07:45 06/11/24 06:59 06/11/24 07:45 06/11/24 06:59
06/10/24 06/11/24 06/12/24
06:59 06:59 06:59
Actual Weight 96.162 kg 96.026 kg
06/11/24 06:47
06/11/24 06:47
PT 16.5 Sec (11.4-14.6) H 06/09/24 09:40
INR 1.35 06/09/24 09:40
Magnesium 2.0 mg/dl (1.6-2.3) 06/10/24 06:28
06/09/24 06/10/24
09:40 06:28
Uaa-V-Rzbanfullht Pept 1320 829
LAB Results
06/09/24 06/09/24
09:40 20:40
Troponin I < 0.012 < 0.012
Physical Exam
Constitutional: No acute distress
Cardiovascular: Pedal edema is absent, JVD pressure is normal and Rhythm/rate is irregular
Respiratory: Respiratory effort normal, Lungs clear to auscul., Wheeze Absent, Crackles Absent and Rhonchi Absent
Neuro/Psych: AO x 3
Data Reviewed
-
Date of Service: June 11, 2024
Medical Decision Making: Review of Case with other Provider (Dr Panda)
EKG: Other (tele afib with rvr at times still in the 110's on dilt gtt)
[2024-06-11] MEDS: CORDARONE 103 MG IV (09:26)
[2024-06-11] MEDS: CORDARONE 518 MG IV (09:46)
[2024-06-11] MEDS: KCL ELIXIR 40 MEQ PO (09:46)
--- NOTE | 2024-06-11 12:22 | CON.EPS ---
Consultation
-
Date/Time Consultation Requested: 06/11/24
Date/Time Consultation Performed: 06-11-24
Reason for Consultation: Recurrent atrial fibrillation
Medical History
-
Chief Complaint: Dyspnea
History of Present Illness:
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 she is noted to
be in heart failure with A-fib rapid ventricular response. He was initially treated with diltiazem drip. Patient remained in atrial fibrillation and was difficult to control. She was eventually started on amiodarone drip.
.
She has recently been admitted with HFpEF due to atrial fibrillation. She was started on Jardiance and furosemide 80 mg once a day. She is admitted again with 2 pounds weight gain with orthopnea.
.
Patient becomes quite symptomatic with A-fib with palpitations, dyspnea on exertion and fluid retention leading to hospitalization with heart failure. Every time she is back in normal sinus rhythm, she feels better and reports excellent normal
physical endurance.
Past Medical History
Past Medical History: Arrhythmias (Paroxysmal atrial fibrillation, paroxysmal SVT. Left anterior fascicle block), Asthma, CHF (HFpEF with LVEF of 55%), HTN, Hypercholesterolemia and NIDDM
Past Electrophysiology History: SVT and Atrial Fibrillation
Social History
Tobacco: Former Smoker
Alcohol: Former
Drug: None
Family History
Family History: Reviewed & Not Pertinent
Allergies / Home Medications
Allergy/AdvReac Type Severity Reaction Status Date / Time
Sulfa (Sulfonamide Allergy Shortness Verified 06/09/24 09:27
Antibiotics) of Breath
�Medication �Instructions �Recorded �Confirmed �Type
Lactobac no.2-Bifidobac no.1-S. 1 cap PO DAILY Gastrointestinal 05/15/24 06/09/24 History
thermo 112.5 billion cell capsule Issue
(Visbiome)
atorvastatin 20 mg tablet (Lipitor) 20 mg PO QPM High Cholesterol 05/15/24 06/09/24 History
cholecalciferol (vitamin D3) 25 25 mcg PO QPM Supplement 05/15/24 06/09/24 History
mcg (1,000 unit) tablet (Vitamin
D3)
duloxetine 30 mg capsule,delayed 30 mg PO DAILY Mental Health 05/15/24 06/09/24 History
release (Cymbalta)
tirzepatide 2.5 mg/0.5 mL 2.5 mg SC SA endocrine condition 05/15/24 06/09/24 History
subcutaneous pen injector
(Mounjaro)
empagliflozin 10 mg tablet 10 mg PO DAILY diabetes 05/26/24 06/09/24 History
(Jardiance)
apixaban 5 mg tablet (Eliquis) 5 mg PO BID #60 tabs 05/28/24 06/09/24 Rx
diltiazem HCl 120 mg 120 mg PO DAILY #30 caps 05/28/24 06/09/24 Rx
capsule,extended release 24 hr
albuterol sulfate 90 mcg/actuation 1 puff inhalation R Q4HPRN PRN 06/09/24 06/09/24 History
aerosol inhaler sob/wheezing
duloxetine 60 mg capsule,delayed 60 mg PO DAILY Depression 06/09/24 06/09/24 History
release
furosemide 40 mg tablet (Lasix) 40 mg PO DAILYPRN PRN Weight gain 06/09/24 06/09/24 History
nicotine 7 mg/24 hr daily 7 mg transdermal DAILY Smoking 06/09/24 06/09/24 History
transdermal patch Cessation
potassium chloride 20 mEq 40 meq PO DAILYPRN PRN take with 06/09/24 06/09/24 History
tablet,extended release lasix
Review of Systems
-
All other systems: Negative unless noted
Physical Exam
Vital Signs
Temp Pulse Resp BP Pulse Ox
98.2 F 123 16 105/70 98
06/11/24 11:24 06/11/24 11:24 06/11/24 11:24 06/11/24 11:24 06/11/24 11:24
Diagnostic Results
06/11/24 06:47
06/11/24 06:47
Troponin I < 0.012 ng/ml 06/09/24 20:40
Qvd-K-Jnphbtqenbr Pept 829 pg/ml 06/10/24 06:28
Holter 06/07/2024: Paroxysmal atrial fibrillation with RVR noted with average heart rate of 140 bpm. A-fib burden is 31% in 48 hours. Occasional PVCs and rare PACs. Nonsustained atrial tachycardia and ventricular tachycardia noted
Date of Last Echo: 06/10/2024: LVEF 60%. Concentric LVH mild, mild MR.
LV Ejection Fraction: 60
CHADS Vasc Score: >4 (Age, gender, hypertension, CHF, diabetes)
Physical Exam
General: Well Developed, Well Nourished, No Apparent Distress and Comfortable
HEENT: Normocephalic and Anicteric
Respiratory: Clear and Non Labored Respirations
Cardiac: S1/S2 and Regular Rhythm; Negative Peripheral Edema
GI: Soft, Non Distended and Normal Bowel Sounds
Musculoskeletal: No Clubbing, No Cyanosis and No Edema
Skin: Warm and Dry
Neuro: Awake, Alert, Oriented, AO x 3, No Motor Deficits and Nonfocal/Grossly Intact
Impression / Plan
-
68-year-old woman with history of dilated aortic root, paroxysmal atrial fibrillation,/paroxysmal supraventricular tachycardia, hypertension, diabetes, who has recurrent hospitalization with A-fib with RVR and acute heart failure due to heart
failure with preserved ejection fraction.
Atrial fibrillation
-Paroxysmal atrial fibrillation
-[id number] score is 5
-On Eliquis 5 mg twice a day
-Initially started on diltiazem drip but failed
-Now started on amiodarone drip
-Converted to sinus rhythm on Amio
-Will switch IV amiodarone to p.o. 400 mg twice a day for 3 days followed by 200 mg once a day
-We discussed in detail options of atrial fibrillation management and her recurrent hospitalization due to A-fib with RVR and acute heart failure
-The procedure of A-fib ablation was discussed in detail, the alternatives, benefits, potential complications, and the procedure was discussed and acknowledged.
-Patient is extremely interested in pursuing A-fib ablation.
-We will schedule her for an A-fib ablation with pulsed field
-Our plan is to continue amiodarone 2 to 3 months post ablation.
-Continue anticoagulation therapy unless contraindicated
Data Reviewed
-
EKG: Tracing Personally Visualized and interpreted
Radiology: Report Reviewed by me
Ultrasound: Image Personally Visualized and interpreted
Labs: Labs Reviewed by me, Discussed with Physician, Discussed with Nurse and Discussed with Patient
Old Records: Reviewed
--- NOTE | 2024-06-11 13:47 | PTCARENOTE ---
Pt. started on Amiodarone Drip at 0940 going at 1 mg/min. At that time, pt. was in a. fib with a resting heart rate of between 110-120. At around 1130 pt. reverted back into normal sinus rhythm with heart rate in the 80s. Will continue to monitor
patient and watch rhythm on tele.
--- NOTE | 2024-06-11 13:50 | W.PN.HOSP.TC ---
Addendum entered and electronically signed by Rahul Panda MD 06/11/24 13:53:
#Hypokalemia
� Monitor and replete
Original Note:
Today's Communication/Plan
-
iv diuretics
amio initiation
npo at [place] for DCCV in am
Assessment / Plan
Assessment / Plan
Physical Exam
General: Well Developed, Well Nourished and No Apparent Distress
HEENT: Normocephalic and Anicteric
Respiratory: Crackles (b/l bases) and Other (on O2 by NC)
Cardiac: Irregular Rhythm and Peripheral Edema (trace)
Skin: Warm and Dry
Neuro: AO x 3
Psych: Calm
#Acute HFpEF
daily weight I/O
IV lasix 40 mg BID
monitor renal function
Cardio eval
cont Jardiance
Echo 05/16/24: Normal left ventricular size and systolic function. Stage III diastolic dysfunction suggestive of restrictive filling pattern and increased filling pressures. Normal right ventricular size with hypokinesis of the free wall.
#paroxysmal Afib
cont home Eliquis
-stop cardizem ggt
amio started
NPO [place] - DCCV in AM
#Morbid Obesity on Mounjaro
#DM recent A1c 6.6 borderline
cont home Jardiance
Carb controlled diet
#former Smoker
cont nicotine supplementation
-recently ceased smoking, i complimented her efforts
dvt ppx Eliquis
Full Code
Total time spent on today's encounter was 51 minutes which included time spent in counseling the patient/family regarding diagnosis and treatment plan as listed above, goals of care, and symptom management. Case was discussed with nursing staff,
specialists, and care coordinators/case management. All labs and imaging personally reviewed by me. Remainder the time spent in detailed review of previous records, lab data, imaging, and other medical provider documentation.
Anticipated Discharge: 24 - 48 hours
Subjective/Interval History
-
Date of Service: June 11, 2024
still in afib
Objective Data
-
Labs:
Laboratory Results
06/11/24
06:47
WBC 9.0
Hgb 12.0
Hct 35.5 L
Plt Count 258
Sodium 139
Potassium 3.4 L
Chloride 100
Carbon Dioxide 26
BUN 19 H
Creatinine 0.9
Glucose 143 H
Calcium 9.0
Vital Signs:
Vital Signs
Temp Pulse Resp BP Pulse Ox
98.2 F 123 16 105/70 98
06/11/24 11:24 06/11/24 11:24 06/11/24 11:24 06/11/24 11:24 06/11/24 11:24
I&O
06/10/24 06/11/24 06/12/24
06:59 06:59 06:59
Intake Total 480 / 480 400 / 400
Output Total 2450 / 2450 1150 / 1150
Balance -1970 / -1970 -750 / -750
Review of Systems
-
History Source: Patient
All other systems: Not reviewed unless documented
Physical Exam
-
General: Well Developed, No Apparent Distress and Morbidly Obese
HEENT: Normocephalic, Atraumatic and Moist Mucous Membranes
Respiratory: Clear to Auscultation and Non Labored Respirations; Negative Wheezes or Crackles
Cardiac: Regular Rhythm, S1/S2 and Murmur; Negative Rub or Gallop
GI: Soft, Nontender, Nondistended and Normal Bowel Sounds; Negative Organomegaly
Rectal: Deferred by Provider
Musculoskeletal: No Clubbing, No Cyanosis and No Edema
Skin: Negative Rash
Neuro: Awake, Alert, Oriented, AO x 3, No Motor Deficits and Nonfocal/Grossly Intact
Psych: Calm
Data Reviewed
-
Diagnostic Radiology: Image personally visualized and interpreted and Report Reviewed by me
Labs: Labs Reviewed by me
[2024-06-11] MEDS: PACERONE 400 MG PO ×2 (15:13→20:17)
[2024-06-11] MEDS: LIPITOR 20 MG PO (17:03)
[2024-06-11] MEDS: VITAMIN D3 (cholecalciferol) 25 MCG PO (17:03)
[2024-06-12 03:50] VITALS: BP 109/55
[2024-06-12 06:00] VITALS: BMI 36.2
[2024-06-12 06:29] LABS: Hematocrit 32.5 % (37.0-47.0); Hemoglobin 11.1 g/dL (12.0-16.0); Mean Corp Hgb Conc. 34.2 g/dL (33.0-37.0); Mean Corpuscular Hgb 31.2 pg (27.0-31.0); Mean Corpuscular Volume 91.3 fL (81.0-99.0); Mean Platelet Volume 10.5 fL (7.4-10.4); Platelet Count 244 10^3/uL (130-400); Red Blood Cell Count 3.56 10^6/uL (4.20-5.40); Red Cell Dist. Width 14.3 % (11.5-14.5); White Blood Cell Count 7.7 10^3/uL (4.8-10.8)
[2024-06-12 06:51] LABS: Blood Urea Nitrogen 20 mg/dl (7-17); Calcium 8.9 mg/dl (8.4-10.2); Carbon Dioxide 28 mmol/L (22-30); Chloride 99 mmol/L (98-107); Estimated Creatinine Clearance 66 ml/min; Glucose 137 mg/dl (70-99); Potassium 3.3 mmol/L (3.5-5.1); Sodium 140 mmol/L (135-145); eGFR > 60.00
[2024-06-12 07:00] VITALS: BP 113/66
--- NOTE | 2024-06-12 07:45 | W.PN.CD ---
Today's Communication / Plan
-
- Discontinue Diltiazem
- Amiodarone 400 mg BID for 3 days then 200 mg QD
- AF ablation at a later date.
Impression / Plan
-
Lfiei-su-widkvxy HFpEF:
-Likely precipitated by AF with RVR
-Feeling much better no win sinus rhythm
-Echo 05/16/24: Normal left ventricular size and systolic function. Stage III diastolic dysfunction suggestive of restrictive filling pattern and increased filling pressures. Normal right ventricular size with hypokinesis of the free wall. Mild to
moderate mitral regurgitation, may be underestimated due to acoustic shadowing. Moderate pulmonary hypertension. Trivial pericardial effusion. Will check follow-up study since ER noted effusion at bedside, though reported mild.
-of note, 80 mg daily was too much for patient, so she was adjusted to 40 mg PRN lasix, which she has not needed as OP- consider 20- 40 mg daily at d/c. Continue Jardiance.
-Stable for discharge now.
AFIB, paroxysmal:
- Fluctuating AF to sinus
- Holter showed frequent AF with RVR
- High AF burden.
- Started on Amiodarone drip. Failed Diltiazem
- Sinus on 06/11/24 and loaded with Amiodarone
- Continue Amiodarone 400 mg BID for 3 days then 20 mg QD maintenance dose
- continue Eliquis for OAC
- Ablation was discussed in detail. She is interested and wants to pursue ablation.
- Plan for AF ablation in near future.
Smoker, former:
-recently quit, which I congratulated her on and encouraged her to continue this path
Subjective;
feeling better, no cp or dizziness
TTE: 06/10/24
CONCLUSIONS
Normal LV size and function with no regional wall motion abnormalities.
LVEF is 60-65% by visual estimation.
Mild concentric LVH.
Normal RV size with mildly reduced systolic function.
Mild mitral regurgitation.
Trivial pericardial effusion.
Compared to prior from May 16, 2024, insufficient TR for estimation of PASP,
previously there was moderate pulmonary hypertension.
Physical Exam
Vital Signs/Labs
Vital Signs
Temp Pulse Resp BP Pulse Ox
97.8 F 84 18 109/55 96
06/12/24 03:50 06/12/24 03:50 06/12/24 03:50 06/12/24 03:50 06/12/24 03:50
06/11/24 06/12/24 06/13/24
06:59 06:59 06:59
Actual Weight 96.026 kg 95.708 kg
06/12/24 06:16
06/12/24 06:16
PT 16.5 Sec (11.4-14.6) H 06/09/24 09:40
INR 1.35 06/09/24 09:40
Magnesium 2.0 mg/dl (1.6-2.3) 06/10/24 06:28
06/09/24 06/10/24
09:40 06:28
Rxd-Q-Jjruekkqiam Pept 1320 829
LAB Results
06/09/24 06/09/24
09:40 20:40
Troponin I < 0.012 < 0.012
Physical Exam
Constitutional: No acute distress and Comfortable
EENT: Anicteric and Moist mucous membranes
Cardiovascular: Rhythm & rate is regular, Pedal edema is absent and JVD pressure is normal
Respiratory: Respiratory effort normal, Lungs clear to auscul. and Wheeze Absent
GI: Soft, Non tender and Normal bowel sounds
Neuro/Psych: Alert, Oriented and AO x 3
Data Reviewed
-
Date of Service: June 12, 2024
Medical Decision Making: Reviewed Test Results, Independent Historian Assessment, Test Interpretation and Review of Case with other Provider
EKG: Tracing Personally Visualized and interpreted
Echo: Report Reviewed by me
Labs: Labs Reviewed by me
Old Records: Reviewed
[2024-06-12] MEDS: KCL 20 MEQ PO (09:34)
[2024-06-12] MEDS: ELIQUIS 5 MG PO ×2 (09:34→20:28)
[2024-06-12] MEDS: CYMBALTA DELAYED RELEASE 30 MG PO (09:34)
[2024-06-12] MEDS: CYMBALTA DELAYED RELEASE 60 MG PO (09:34)
[2024-06-12] MEDS: SENOKOT-S 1 TABLET PO ×2 (09:34→20:28)
[2024-06-12] MEDS: FARXIGA 10 MG PO (09:34)
[2024-06-12] MEDS: LASIX 40 MG IV (09:47)
[2024-06-12] MEDS: PACERONE 400 MG PO ×2 (09:47→20:28)
[2024-06-12] MEDS: VISBIOME 1 CAP PO (10:27)
[2024-06-12 11:00] VITALS: BP 114/79
[2024-06-12] MEDS: NICODERM TRANSDERMAL 7 MG TRANSDERM (11:03)
[2024-06-12] MEDS: KCL 40 MEQ PO (11:04)
--- NOTE | 2024-06-12 11:39 | PN.CDI ---
CDI
- -
CDI:
Physician Documentation Request
Admit Date: 06/09/24 15:27
Dear Doctor Amarilys,
Patient admitted for heart failure.
06/11 Cardiology PN: 'Otopr-cj-wcmykhd HFpEF: -weight in ER appears to have been erroneous. However, she appears volume overloaded to assessment.'
06/11 Hospitalist PN: 'Acute HFpEF, daily weight I/O, IV lasix 40 mg BID'
Clarify which of the following accurately represents the acuity of the heart failure. Possible options might include:
Acute on chronic
Acute
Other
Use of terms such as suspected, likely, concern for, or probable (associated with a specific diagnosis that is being evaluated, monitored, or treated as if it exists) are acceptable and can be coded in the inpatient setting, when documented at the
time of discharge.
Thank you,
Nimco Vela RN, BSN
CDI Specialist
Available via [place] text
Please use your independent medical judgment in providing your response.
--- NOTE | 2024-06-12 11:40 | CM ---
Reviewed chart, per nursing notes, patient ambulatory and independent in room. Will continue to watch for needs.
Plan: Case management will continue to follow and assist with discharge planning. Home when stable.
--- NOTE | 2024-06-12 14:27 | W.PN.HOSP.TC ---
Today's Communication/Plan
-
switch to po lasix
monitor on tele additional day prior to dc
Assessment / Plan
Assessment / Plan
Physical Exam
General: Well Developed, Well Nourished and No Apparent Distress
HEENT: Normocephalic and Anicteric
Respiratory: Crackles (b/l bases) and Other (on O2 by NC)
Cardiac: Irregular Rhythm and Peripheral Edema (trace)
Skin: Warm and Dry
Neuro: AO x 3
Psych: Calm
#Acute HFpEF
daily weight I/O
Switch to lasix 40 mg daily
monitor renal function
Cardio eval
cont Jardiance
Echo 05/16/24: Normal left ventricular size and systolic function. Stage III diastolic dysfunction suggestive of restrictive filling pattern and increased filling pressures. Normal right ventricular size with hypokinesis of the free wall.
#paroxysmal Afib
cont home Eliquis
-stop cardizem ggt
amio ggt stopped - switched to PO amio
-Amiodarone 400 mg BID for 3 days then 200 mg QD
- AF ablation at a later date
-monitor on tele additional day prior to dc
#Hypokalemia
-monitor and replete
#Morbid Obesity on Mounjaro
#DM recent A1c 6.6 borderline
cont home Jardiance
Carb controlled diet
#former Smoker
cont nicotine supplementation
-recently ceased smoking, i complimented her efforts
dvt ppx Eliquis
Full Code
Anticipated Discharge: Within 24 hours
Subjective/Interval History
-
Date of Service: June 12, 2024
reverted back to sinus
Objective Data
-
Labs:
Laboratory Results
06/12/24
06:16
WBC 7.7
Hgb 11.1 L
Hct 32.5 L
Plt Count 244
Sodium 140
Potassium 3.3 L
Chloride 99
Carbon Dioxide 28
BUN 20 H
Creatinine 0.9
Glucose 137 H
Calcium 8.9
Vital Signs:
Vital Signs
Temp Pulse Resp BP Pulse Ox
98.6 F 90 16 114/79 93
06/12/24 11:00 06/12/24 11:00 06/12/24 11:00 06/12/24 11:00 06/12/24 11:00
I&O
06/11/24 06/12/24 06/13/24
06:59 06:59 06:59
Intake Total 400 / 400 780 / 780
Output Total 1150 / 1150 1550 / 1550
Balance -750 / -750 -770 / -770
Review of Systems
-
History Source: Patient
All other systems: Not reviewed unless documented
Physical Exam
-
General: Well Developed, No Apparent Distress and Morbidly Obese
HEENT: Normocephalic, Atraumatic and Moist Mucous Membranes
Respiratory: Clear to Auscultation and Non Labored Respirations; Negative Wheezes or Crackles
Cardiac: Regular Rhythm, S1/S2 and Murmur; Negative Rub or Gallop
GI: Soft, Nontender, Nondistended and Normal Bowel Sounds; Negative Organomegaly
Rectal: Deferred by Provider
Musculoskeletal: No Clubbing, No Cyanosis and No Edema
Skin: Negative Rash
Neuro: Awake, Alert, Oriented, AO x 3, No Motor Deficits and Nonfocal/Grossly Intact
Psych: Calm
[2024-06-12 15:00] VITALS: BP 118/59
[2024-06-12] MEDS: LIPITOR 20 MG PO (17:14)
[2024-06-12] MEDS: VITAMIN D3 (cholecalciferol) 25 MCG PO (17:14)
[2024-06-12 19:24] VITALS: BP 105/64
[2024-06-12 22:43] VITALS: BP 108/67
[2024-06-13 03:09] VITALS: BP 100/49
[2024-06-13 06:00] VITALS: BMI 36.1
[2024-06-13 06:48] LABS: Hematocrit 31.3 % (37.0-47.0); Hemoglobin 10.6 g/dL (12.0-16.0); Mean Corp Hgb Conc. 33.9 g/dL (33.0-37.0); Mean Corpuscular Hgb 30.5 pg (27.0-31.0); Mean Corpuscular Volume 90.2 fL (81.0-99.0); Mean Platelet Volume 10.8 fL (7.4-10.4); Platelet Count 255 10^3/uL (130-400); Red Blood Cell Count 3.47 10^6/uL (4.20-5.40); Red Cell Dist. Width 14.5 % (11.5-14.5); White Blood Cell Count 7.2 10^3/uL (4.8-10.8)
[2024-06-13 07:00] VITALS: BP 109/60
[2024-06-13 07:17] LABS: Blood Urea Nitrogen 19 mg/dl (7-17); Calcium 9.1 mg/dl (8.4-10.2); Carbon Dioxide 29 mmol/L (22-30); Chloride 100 mmol/L (98-107); Estimated Creatinine Clearance 66 ml/min; Glucose 133 mg/dl (70-99); Magnesium 2.1 mg/dl (1.6-2.3); Potassium 3.7 mmol/L (3.5-5.1); Sodium 139 mmol/L (135-145); eGFR > 60.00
--- NOTE | 2024-06-13 07:46 | W.PN.CD ---
Today's Communication / Plan
-
home on lasix 20mg qd
Continue Amiodarone 400 mg BID for 2 days then 200 mg QD maintenance dose
Impression / Plan
-
Ekqlz-kl-vuwyzbp HFpEF:
-Likely precipitated by AF with RVR
-Feeling much better no win sinus rhythm
-Echo 05/16/24: Normal left ventricular size and systolic function. Stage III diastolic dysfunction suggestive of restrictive filling pattern and increased filling pressures. Normal right ventricular size with hypokinesis of the free wall. Mild to
moderate mitral regurgitation, may be underestimated due to acoustic shadowing. Moderate pulmonary hypertension. Trivial pericardial effusion. Will check follow-up study since ER noted effusion at bedside, though reported mild.
-of note, 80 mg daily was too much for patient, will discharge on furosemide 20mg po daily. Continue Jardiance.
-she is compliant with chf plan and will call if no response
-Stable for discharge now.
AFIB, paroxysmal:
- Fluctuating AF to sinus
- Holter showed frequent AF with RVR
- High AF burden.
- Started on Amiodarone drip. Failed Diltiazem
- Sinus on 06/11/24 and loaded with Amiodarone
- Continue Amiodarone 400 mg BID for 2 days then 200 mg QD maintenance dose
- continue Eliquis for OAC
- Ablation was discussed in detail. She is interested and wants to pursue ablation.
- Plan for AF ablation in near future. Dr Carballo has evaluated
Smoker, former:
-recently quit, which I congratulated her on and encouraged her to continue this path
Subjective;
feeling better, no cp or dizziness
TTE: 06/10/24
CONCLUSIONS
Normal LV size and function with no regional wall motion abnormalities.
LVEF is 60-65% by visual estimation.
Mild concentric LVH.
Normal RV size with mildly reduced systolic function.
Mild mitral regurgitation.
Trivial pericardial effusion.
Compared to prior from May 16, 2024, insufficient TR for estimation of PASP,
previously there was moderate pulmonary hypertension.
Physical Exam
Vital Signs/Labs
Vital Signs
Temp Pulse Resp BP Pulse Ox
98.4 F 81 16 100/49 95
06/13/24 03:09 06/13/24 03:09 06/13/24 03:09 06/13/24 03:09 06/13/24 03:09
06/12/24 06/13/24 06/14/24
06:59 06:59 06:59
Actual Weight 95.708 kg 95.39 kg
06/13/24 06:25
06/13/24 06:25
PT 16.5 Sec (11.4-14.6) H 06/09/24 09:40
INR 1.35 06/09/24 09:40
Magnesium 2.1 mg/dl (1.6-2.3) 06/13/24 06:25
06/09/24 06/10/24
09:40 06:28
Szx-I-Gzxwfkjnywm Pept 1320 829
Physical Exam
Constitutional: No acute distress
Cardiovascular: Rhythm & rate is regular, Pedal edema is absent, JVD pressure is normal, Systolic murmur absent and Pedal edema present
Respiratory: Respiratory effort normal, Lungs clear to auscul., Wheeze Absent, Crackles Absent and Rhonchi Absent
Neuro/Psych: AO x 3
Data Reviewed
-
Date of Service: June 13, 2024
Medical Decision Making: Review of Case with other Provider (Dr Deidra womack for discharge)
EKG: Other (tele sinus)
[2024-06-13] MEDS: FARXIGA 10 MG PO (08:44)
[2024-06-13] MEDS: SENOKOT-S 1 TABLET PO (08:44)
[2024-06-13] MEDS: KCL 20 MEQ PO (08:44)
[2024-06-13] MEDS: CYMBALTA DELAYED RELEASE 60 MG PO (08:45)
[2024-06-13] MEDS: LASIX 40 MG PO (08:45)
[2024-06-13] MEDS: VISBIOME 1 CAP PO (08:45)
[2024-06-13] MEDS: ELIQUIS 5 MG PO (08:45)
[2024-06-13] MEDS: CYMBALTA DELAYED RELEASE 30 MG PO (08:49)
[2024-06-13] MEDS: PACERONE 400 MG PO (08:50)
[2024-06-13] MEDS: NICODERM TRANSDERMAL 7 MG TRANSDERM (08:53)
[2024-06-13 11:00] VITALS: BP 111/59
--- NOTE | 2024-06-13 12:12 | W.PN.HOSP.TC ---
Addendum entered and electronically signed by Rahul Panda MD 06/13/24 18:16:
Mjkwj-st-jhlcyuf HFpEF
Addendum entered and electronically signed by Rahul Panda MD 06/13/24 18:09:
[id number]
Original Note:
Today's Communication/Plan
-
Switch to lasix 20 mg daily-Amiodarone 400 mg BID for 2 days then 200 mg QD
AF ablation at a later date
BMP in 1 week
f/u pcp, cardiology outpatient
Assessment / Plan
Assessment / Plan
Physical Exam
General: Well Developed, Well Nourished and No Apparent Distress
HEENT: Normocephalic and Anicteric
Respiratory: Crackles (b/l bases) and Other (on O2 by NC)
Cardiac: Irregular Rhythm and Peripheral Edema (trace)
Skin: Warm and Dry
Neuro: AO x 3
Psych: Calm
#Acute HFpEF
daily weight I/O
Switch to lasix 20 mg daily
monitor renal function
Cardio eval
cont Jardiance
Echo 05/16/24: Normal left ventricular size and systolic function. Stage III diastolic dysfunction suggestive of restrictive filling pattern and increased filling pressures. Normal right ventricular size with hypokinesis of the free wall.
-f/u bmp in 1 week
#paroxysmal Afib
cont home Eliquis
-stop cardizem ggt
amio ggt stopped - switched to PO amio
-Amiodarone 400 mg BID for 2 days then 200 mg QD
- AF ablation at a later date
-monitor on tele additional day prior to dc
#Hypokalemia
-monitor and replete
-bmp in 1 week
#Morbid Obesity on Mounjaro
#DM recent A1c 6.6 borderline
cont home Jardiance
Carb controlled diet
#former Smoker
cont nicotine supplementation
-recently ceased smoking, i complimented her efforts
dvt ppx Eliquis
Full Code
More than 30 minutes spent in discharge including
Final examination of the patient
Summarizing hospital stay
Instructions for continuing care to all relevant caregivers
Preparation of discharge records, prescriptions, and referral forms
Total time spent (35 in minutes):
Anticipated Discharge: Today
Subjective/Interval History
-
Date of Service: June 13, 2024
no acute events, still remains in sinus
Objective Data
-
Labs:
Laboratory Results
06/13/24
06:25
WBC 7.2
Hgb 10.6 L
Hct 31.3 L
Plt Count 255
Sodium 139
Potassium 3.7
Chloride 100
Carbon Dioxide 29
BUN 19 H
Creatinine 0.9
Glucose 133 H
Calcium 9.1
Vital Signs:
Vital Signs
Temp Pulse Resp BP Pulse Ox
98.0 F 81 16 109/60 97
06/13/24 07:00 06/13/24 08:50 06/13/24 07:00 06/13/24 08:50 06/13/24 08:10
I&O
06/12/24 06/13/24 06/14/24
06:59 06:59 06:59
Intake Total 780 / 780 1380 / 1380
Output Total 1550 / 1550 820 / 820
Balance -770 / -770 560 / 560
Review of Systems
-
History Source: Patient
All other systems: Not reviewed unless documented
Physical Exam
-
General: Well Developed, No Apparent Distress and Morbidly Obese
HEENT: Normocephalic, Atraumatic and Moist Mucous Membranes
Respiratory: Clear to Auscultation and Non Labored Respirations; Negative Wheezes or Crackles
Cardiac: Regular Rhythm, S1/S2 and Murmur; Negative Rub or Gallop
GI: Soft, Nontender, Nondistended and Normal Bowel Sounds; Negative Organomegaly
Rectal: Deferred by Provider
Musculoskeletal: No Clubbing, No Cyanosis and No Edema
Skin: Negative Rash
Neuro: Awake, Alert, Oriented, AO x 3, No Motor Deficits and Nonfocal/Grossly Intact
Psych: Calm
Data Reviewed
-
Diagnostic Radiology: Image personally visualized and interpreted and Report Reviewed by me
Labs: Labs Reviewed by me
--- NOTE | 2024-06-13 12:15 | W.DS.TRANS ---
DC Summary - [employer]
-
Discharge Instructions:
Sleep Apnea Risk High
Discharge Diagnosis/Procedures Omonn-uv-yjjbctv HFpEF
AFIB, paroxysmal
Mild to moderate mitral regurgitation
Diet Low Cholesterol,Low Fat,Restrict fluids to 48 oz
Activity As tolerated
Blood Work f/u bmp in 1 week with cardiology/pcp
Specialty Instructions Weigh Daily
Instructions: *CBC Heart Failure Instructions
Stand-Alone Forms:
Changes to Home Medications: Yes
Discharge Medications:
DC Medications w/original date entered in [facility]
Lactobac no.2-Bifidobac no.1-S. thermo 112.5 billion cell capsule (Visbiome) 1 cap PO DAILY Gastrointestinal Issue 05/15/24
atorvastatin 20 mg tablet (Lipitor) 20 mg PO QPM High Cholesterol 05/15/24
cholecalciferol (vitamin D3) 25 mcg (1,000 unit) tablet (Vitamin D3) 25 mcg PO QPM Supplement 05/15/24
duloxetine 30 mg capsule,delayed release (Cymbalta) 30 mg PO DAILY Mental Health 05/15/24
tirzepatide 2.5 mg/0.5 mL subcutaneous pen injector (Mounjaro) 2.5 mg SC SA endocrine condition 05/15/24
empagliflozin 10 mg tablet (Jardiance) 10 mg PO DAILY diabetes 05/26/24
apixaban 5 mg tablet (Eliquis) 5 mg PO BID #60 tabs 05/28/24
albuterol sulfate 90 mcg/actuation aerosol inhaler 1 puff inhalation R Q4HPRN PRN sob/wheezing 06/09/24
duloxetine 60 mg capsule,delayed release 60 mg PO DAILY Depression 06/09/24
nicotine 7 mg/24 hr daily transdermal patch 7 mg transdermal DAILY Smoking Cessation 06/09/24
amiodarone 200 mg tablet 200 mg PO DAILY #30 tabs 06/13/24
amiodarone 200 mg tablet 400 mg (2 x 200 mg) PO BID 2 days #8 tabs 06/13/24
furosemide 20 mg tablet 20 mg PO DAILY 30 days #30 tabs 06/13/24
Home Medication Changes
amiodarone 200 mg tablet 200 mg PO DAILY #30 tabs 06/13/24
amiodarone 200 mg tablet 400 mg (2 x 200 mg) PO BID 2 days #8 tabs 06/13/24
furosemide 20 mg tablet 20 mg PO DAILY 30 days #30 tabs 06/13/24
Pending Results: No
--- NOTE | 2024-06-13 13:26 | CM ---
Reviewed chart, patient cleared for discharge. Met with patient who confirmed that she has a ride from a friend. IMM reviewed, signed and on chart.
Plan: Case management will continue to follow and assist with discharge planning. Home.
[2024-06-13 15:24] VITALS: BP 109/61
--- NOTE | 2024-06-14 14:48 | W.HF.CON ---
Heart Failure
- LV Function
Left ventricular function study result: LV Ejection fraction >40%
Ejection Fraction Percentage: 60-65
- ARNI
Patient already on ARNI: No
Heart Failure ARNI Not Indicated: LV Ejection Fraction >/= 40%
- ACEI/ARB
Patient already on ACEI/ARB: No
Heart Failure ACEI/ARB Not Indicated: LV Ejection Fraction > 40%
- Beta Mariangel
Patient already on Evidence Based Beta Mariangel: No
Heart Failure Evidence Based Beta Mariangel Not Indicated: LV Ejection Fraction > 40%
- Mineralocorticord Receptor Antagonist
Patient already on MRA: No
Heart Failure MRA Not Indicated: LV Ejection Fraction > 40%
- SGLT-2 Inhibitor
Patient already on SGLT-2 Inhibitor: Yes
- Afib Anticoagulation
Patient already on Anticoagulation for Afib: Yes
- NYHA CHF Classification
NYHA CHF Classification Level: Class III - Symptoms w/ min exertion, interferes w/ nml daily activity
- ACC/AHA Stage
ACC/AHA Stage: Stage C: Symptomatic Heart Failure
== END 2024-06-13 16:13 | disposition home or self-care (01) | DRG 293 ==
LOC: 3 WEST ACU 15:27
PROVIDERS: Physician Assistant Medical; ADMITTING PHYSICIAN Internal Medicine; ATTENDING PHYSICIAN Internal Medicine; EMERGENCY PHYSICIAN Emergency Medicine; FAMILY PHYSICIAN Family Medicine; OTHER PHYSICIAN Internal Medicine Cardiovascular Disease
DX: I50.33 Acute on chronic diastolic (congestive) heart failure (principal); I48.0 Paroxysmal atrial fibrillation; Z87.891 Personal history of nicotine dependence; I34.0 Nonrheumatic mitral (valve) insufficiency; E66.01 Morbid (severe) obesity due to excess calories; Z68.36 Body mass index [BMI] 36.0-36.9, adult; Z11.52 Encounter for screening for COVID-19
CPT/HCPCS: 93308; 71046; 80048; 80053; 83735; 83880; 84100; 84484; 85025; 85027; 85610; 87502; 87811; 93005; 93225; 93226; 96374; 99285

== ENCOUNTER → 2024-07-04 09:03 | Outpatient (REF) | payer MEDICARE, SELFPAY | LOC: DHSLP 09:03 | PROVIDERS: ATTENDING PHYSICIAN Family Medicine | DX: G47.33 Obstructive sleep apnea (adult) (pediatric) (principal) | CPT/HCPCS: 95806 ==

== ENCOUNTER 2024-07-18 06:01 | Day surgery (SDC) | payer MEDICARE, SELFPAY ==
[2024-07-03 08:20] VITALS: BMI 36.2
[2024-07-18] VITALS (75 sets, daily range): BP systolic 79–118; BP diastolic 47–70; BMI 35.6
[2024-07-18 06:55] LABS: Glucose - Point of Care 144 mg/dl (70-99)
[2024-07-18 08:57] LABS: ACT-LR - POC 263 Seconds (116-155)
[2024-07-18 09:08] LABS: ACT-LR - POC 305 Seconds (116-155)
[2024-07-18 09:30] LABS: ACT-LR - POC 266 Seconds (116-155)
[2024-07-18 09:51] LABS: ACT-LR - POC 351 Seconds (116-155)
--- NOTE | 2024-07-18 10:20 | ITS.CL.ABL ---
Chip Machine Operator - Ablation
Ablation
Procedure Report:
AFIB ablation:
Ms. 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
for atrial fibrillation ablation.
Date of the Procedure:
07/18/2024
Indications:
Paroxysmal atrial fibrillation
Pre-Operative Diagnosis:
Paroxysmal atrial fibrillation
Post-Operative Diagnosis:
Paroxysmal atrial fibrillation
Procedure Performed:
Atrial fibrillation ablation with Pulsed-Field approach for pulmonary vein isolation
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
Performing Physician:
Sandra Carballo MD
Assistants:
EP staff
Anesthesia:
See anesthesia records
Detailed Description of the Procedure:
Written informed consent was obtained from the patient after a full explanation of the risks and benefits of the procedure including the risks of sedation and anesthesia.
The patient was brought to the electrophysiology laboratory in stable condition in fasting state. Continuous electrocardiographic and hemodynamic monitoring was initiated.
The initial rhythm was sinus rhythm.
The procedure site was meticulously prepared with surgical scrub and allowed to dry with no pooling. Sterile draping was applied to cover the procedure site. The image intensifier was draped with sterile bag and positioned over the patient. After
infusion of local anesthetic, vascular access was obtained under ultrasound guidance and sheaths were placed over guide wire as detailed below.
Sheath and Catheter Placement:
In the right femoral vein, an 8-Kenyan sheath was placed under ultrasound guidance for use during the ablation procedure and a mapping catheter was intermittently placed in the high right atrium, right ventricle, left atrium. In the right femoral
vein, another 9-Fr sheath was placed for use during intra-cardiac echo procedure. Another 7Fr sheath was placed in the left femoral vein for CS catheter placement.
The sheaths were upgraded as needed during the case. Intra-cardiac catheters were positioned using direct fluoroscopic guidance. Decapolar catheter advanced into CS position. ICE catheter was placed in RA. The following catheters / sheaths were
placed
Sheaths:
��������� 15Fr steerable sheath (FlexCath Cross�, LOGIDOC-Solutions) in right femoral vein in right femoral vein
��������� 9Fr in right femoral vein
��������� 7Fr in right femoral vein
Catheters:
��������� DHRUV HD Grid mapping catheter � at locations of RA, LA
��������� PulseSelect� PFA catheter
��������� ICE catheter -AcuNav - at locations of RA, SVC, and RV.
��������� Decapolar Bard catheter in RA and CS
Intracardiac ECHO:
An 8-Kenyan AcuNav intracardiac ECHO (ICE) probe was advanced through the 9-Kenyan sheath in the right femoral vein into the right atrium under fluoroscopic and ICE ultrasound image guidance and a baseline ECHO study was performed. The left atrial
size was dilated. There was moderate tricuspid regurgitation. The aortic valve was calcified with mild turbulent flow noted. There was normal left ventricular systolic functions. There is moderate pericardial effusion. There was moderate to sevre
mitral regurgitation noted.
The cardiac chambers were rotated. All the four veins were identified and has flow identified.
During the procedure, ICE was used for monitoring of complications, guidance of trans-septal puncture, monitor the catheter position and tracking ablation lesions. No change in the pericardial space noted throughout the procedure.
Trans-septal Puncture:
Heparin was initiated and infused to maintain appropriate ACT. A J-tipped guidewire was advanced through the 8-Kenyan sheath in the right femoral vein into the superior vena cava under fluoroscopic and ICE guidance. The 8-Kenyan sheath was exchanged
for a FlexCath Cross sheath which was advanced into the superior vena cava. An AcPromedior transseptal access system was utilized to perform the trans-septal puncture. The apparatus was withdrawn until it was in contact with the fossa ovalis. The
position was adjusted based on fluoroscopy and ultrasound images from ICE. Under fluoroscopic, hemodynamic and ICE ultrasound guidance, left atrium was cannulated by advancing the needle. Once atrial septum was cannulated, the needle was pulled back
and a guide wire was advanced through the needle into the left atrium. The guide wire was advanced into the left superior pulmonary vein. Both the sheath and the dilator was advanced into the left atrium. The dilator with the needle was withdrawn.
Blood was aspirated from the FlexCath cross sheath and arterial blood confirmed. The sheath was flushed. Saline injection noted into the left atrium on ICE. The mapping catheter was advanced in the Flexcath sheath into the left pulmonary vein. Left
atrial pressure was measured.
3D Electroanatomic Mapping:
Using the HD Grid catheter advanced through sheath into the left atrium, an electroanatomic map (EAM) of the left atrium was created using [place] DHRUV mapping system. The map was used for localization of catheter position and tacking of ablation
lesions. The EAM of the left atrium showed 5 pulmonary veins with a usual left superior pulmonary vein. 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 There were two superior right
sided veins and the inferior was large also giving rise to the left inferior. The veins were electrically active and electrically connected to the body the LA. There was no significant scar present.
The LA was dilated in size.
Following the EAM, preparation were made for ablation.
Ablation:
Ablation # 1: Pulmonary vein Isolation:
Glycopyrrolate 0.2 mg was given prior to the placement of ablation. Using Flybits� pulsed field ablation system, pulmonary vein isolation was achieved. First the ablation catheter was placed in the LIPV and ostial ablation lesions were performed
in a counter clock charlton approach all around the PV ostium circumferentially. Then the catheter was placed on the antral location and multiple ablation lesions were placed circumferentially on the antrum of the vein.
Then the catheter was moved to right sided veins. The ostial and antral ablations were placed as noted above to the RSPV and RIPV.
Then the wire was placed from the RIPV to the LIPV and antral ablation was done.
Ablation # 2: Posterior wall isolation:
Using the pulsed field ablation catheter, the catheter was placed on the posterior wall and moved around the posterior wall to have adequate contact and ablations were placed isolating the posterior wall.
Summary of ablation applied:
LSPV: 15 lesions ;�������������� RSPV: 16 lesions
LIPV: 12 lesions; �������������� RIPV: 13 lesions
PW: 16 lesions.
Total 72 ablation lesions.
Post ablation Electroanatomic mapping:
Once ablation was completed, the EAM of the LA was done again in sinus rhythm with excellent demarcation of LA myocardium and isolated antral tissue.
EPS and Confirmation of the PVI and bidirectional block:
Following achievement of entrance block at the pulmonary veins, pacing from the HD catheter in each of the four veins at 10 milliamps for 2 milliseconds showed entrance and exit block. All PVI were rechecked at the end of the case and remained
isolated. Entrance and exit block were demonstrated in all veins.
Procedure End
ICE study was done again that showed no epicardial accumulation. No complications noted.
Following the completion of the EP study, catheters were removed. Protamine 40 mg was given at the end of the procedure and ACT was checked repeatedly. The sheaths were removed and hemostasis achieved with manual compression after acceptable ACT is
achieved.
Left atrial Pressure:
Pre-Procedure: Mean LA pressure was 33mmHg (Large V waves)
Post-Procedure: Mean LA pressure was 22mmHg (V wave)
Post-Procedure: Mean LR pressure was 12mmHg
Estimated Blood loss:
<10 cc
Specimens Removed:
None.
Implants / Devices:
None
Urine output:
None
Packs / Drains/ Tubes:
None
Instrument / Sponge Count Correct:
Yes
Complications of the Procedure:
None
Condition of Patient at Time of Transfer:
Hemodynamically stable with no neurological or vascular compromise.
Summary:
Successful atrial fibrillation ablation with Pulsed Field approach for pulmonary vein isolation, posterior wall isolation
Figures from the Procedure:
Figure 1: The electroanatomic mapping (EAM) of the left atrium with bipolar voltage (purple indicates normal electrical activity with lundberg as no myocardial muscle electric activity indicating a line of block or scar.
--- NOTE | 2024-07-18 10:45 | PTCARENOTE ---
Pt's blood pressure is 92/56. Pt is due for Lasix 40mg IVP stat. Carmen MITCHELL aware and states ok to give lasix 40mg IVP.
[2024-07-18] MEDS: LASIX 40 MG IV ×2 (10:46→16:36)
--- NOTE | 2024-07-18 10:57 | PTCARENOTE ---
Dr Carballo at pt bedside speaking to pt.
--- NOTE | 2024-07-18 11:19 | PTCARENOTE ---
Camilla, swimming pool service technician at pt bedside performing echocardiogram.
[2024-07-18 11:37] LABS: Glucose - Point of Care 204 mg/dl (70-99)
--- NOTE | 2024-07-18 11:46 | PTCARENOTE ---
Pt's accucheck is 204. Pt has not eaten yet. Pt takes jardiance and mounjaro at home. Carmen Chapman NP made aware of pt's accucheck. No treatment ordered at this time. Will continue to monitor.
[2024-07-18] MEDS: ANESTHETIC LOZENGE 1 LOZENGE PO (12:11)
--- NOTE | 2024-07-18 12:29 | PTCARENOTE ---
Dr Carballo at pt bedside speaking to pt.
--- NOTE | 2024-07-18 13:05 | PTCARENOTE ---
Pt's pulse ox 86-89% on room air. Pt denies SOB at this time. No respiratory distress noted. Carmen Chapman NP made aware and in to evaluate pt. Carmen Chapman NP states ok to ambulated pt to bathroom and re evaluate pt.
--- NOTE | 2024-07-18 13:20 | PTCARENOTE ---
At 1310, pt noted to have oozing noted on right groin. Pt laid flat. Manual pressure applied x 10 minutes. Pt's pulse ox 83% Oxygen 4L NC applied. Pt denies SOB at this time. No respiratory distress noted. Dressing removed. Hemostasis obtained. No
further oozing or hematoma noted. Dry, sterile 4x4 and tegaderm applied. Pt coughing frequently. Reinforced to apply pressure to pt's right groin while coughing. Carmen Chapman NP made aware and in to assess pt. Will continue to monitor.
[2024-07-18] MEDS: KCL 20 MEQ PO (14:13)
[2024-07-18 16:22] LABS: Glucose - Point of Care 205 mg/dl (70-99)
[2024-07-18] MEDS: NOVOLOG FLEXPEN-MODERATE RESISTANCE 3 UNITS SC (16:42)
[2024-07-18 18:35] LABS: Glucose - Point of Care 258 mg/dl (70-99)
[2024-07-18] MEDS: ELIQUIS 5 MG PO (19:46)
[2024-07-18] MEDS: LIPITOR 20 MG PO (19:46)
[2024-07-18 22:23] LABS: Glucose - Point of Care 227 mg/dl (70-99)
[2024-07-18] MEDS: TYLENOL 650 MG PO (22:34)
--- NOTE | 2024-07-19 00:01 | PTCARENOTE ---
Rec'd pt at change of shift. Pt on TELE monitor in NSR with VSS and AAO*3. Pt post ablation via the right femoral vein and aware of limb restriction. Pt reported mild throat discomfort and Tylenol PO given as ordered. Pt resting with call golden
in reach.
--- NOTE | 2024-07-19 01:20 | PTCARENOTE ---
Assumed care of pt, HR SR. R groin site dressing CDI. Area soft, no hematoma. Pt denies any CP or SOB. Informed to use call golden if any changes.
[2024-07-19 03:15] VITALS: BP 104/59
[2024-07-19 03:50] VITALS: BMI 35.9
[2024-07-19 04:26] LABS: Hematocrit 30.4 % (37.0-47.0); Hemoglobin 9.8 g/dL (12.0-16.0); Mean Corp Hgb Conc. 32.2 g/dL (33.0-37.0); Mean Corpuscular Hgb 31.2 pg (27.0-31.0); Mean Corpuscular Volume 96.8 fL (81.0-99.0); Mean Platelet Volume 11.1 fL (7.4-10.4); Platelet Count 231 10^3/uL (130-400); Red Blood Cell Count 3.14 10^6/uL (4.20-5.40); Red Cell Dist. Width 14.9 % (11.5-14.5); White Blood Cell Count 9.7 10^3/uL (4.8-10.8)
[2024-07-19 04:51] LABS: Blood Urea Nitrogen 23 mg/dl (7-17); Calcium 9.1 mg/dl (8.4-10.2); Carbon Dioxide 28 mmol/L (22-30); Chloride 102 mmol/L (98-107); Estimated Creatinine Clearance 49 ml/min; Glucose 164 mg/dl (70-99); Magnesium 2.2 mg/dl (1.6-2.3); Potassium 4.7 mmol/L (3.5-5.1); Sodium 140 mmol/L (135-145)
[2024-07-19 05:38] LABS: Hepatitis C Antibody Negative (Negative)
[2024-07-19 07:43] LABS: Glucose - Point of Care 161 mg/dl (70-99)
[2024-07-19 07:51] VITALS: BP 115/62
[2024-07-19 08:00] VITALS: BMI 35.9
[2024-07-19] MEDS: PACERONE 200 MG PO (08:13)
[2024-07-19] MEDS: ELIQUIS 5 MG PO (08:14)
[2024-07-19] MEDS: KCL 20 MEQ PO (08:14)
[2024-07-19] MEDS: FARXIGA 10 MG PO (08:14)
[2024-07-19] MEDS: NOVOLOG FLEXPEN-MODERATE RESISTANCE 1 UNITS SC (08:16)
[2024-07-19] MEDS: CYMBALTA DELAYED RELEASE 120 MG PO (09:13)
--- NOTE | 2024-07-19 09:15 | W.PN.CARDCBS ---
Addendum entered and electronically signed by Forest Gee MD (Ellie) 07/19/24 10:30:
I saw and examined the patient.
The AFRICAN STUDIES PROFESSOR's note was reviewed and I agree with the note.
Comment:
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
ablation. Now POD #1. She is doing well. On room air as of this morning with normal oxygen saturation while walking around. She will double up her Lasix for the next 1 week and buy a pulse oximeter for home. She is stable for discharge today.
Continue amiodarone, Eliquis, atorvastatin, and Jardiance.
Original Note:
Today's Communication / Plan
-
Check RA sats, if still hypoxic plan for CXR
continue diuresis, I.S. C&DB
OAC and Amiodarone
Impression / Plan
-
PCP: Mady Quarles MD
CDY: Olvin Valentino MD
Ms. 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
for atrial fibrillation ablation.
Impression/Plan:
#Symptomatic PAF - post PVI/PFA and PW ablation 07/18/24, tele SR
continue OAC Eliquis, Amiodarone
groins stable, will f/u cbc 2 weeks
#Acute on chronic HFpEF - mean L pressure 33mmHg pre procedure, post 22mmHg, diuresed with lasix 40iv bid.
Cr slightly elevated 1.2, most likely from hypotension post procedure
intraprocedural concern for moderate pericardial effusion and severe MR, f/u Echo EF 55-60%, pericardial effusion was small and fibrinous, Moderate MR which appeared unchanged from prior Echo 05/2024
O2 1L o/n 98%, now on RA will check if sats remain below 92% will check CXR
continue Jardiance, Will increase Lasix 40mg bid for 1 week
HF diet reinforced, daily wts, I.S. and C&DB, OOB ambulate
#Moderate MR - Unchanged on Echo from 05/2024
#Dyslipidemia - continue atorvastatin
#NIDDM - SSI while hospitalized, resume Modickro at d/c
#former smoker
Progress Note - Geomagnetist
Subjective
Date of Service: July 19, 2024
denies cp, sob
Objective
Labs:
07/19/24 03:29
07/19/24 03:29
Labs
Hgb 9.8 g/dL (12.0-16.0) L 07/19/24 03:29
Hct 30.4 % (37.0-47.0) L 07/19/24 03:29
Plt Count 231 10^3/uL (130-400) 07/19/24 03:29
Sodium 140 mmol/L (135-145) 07/19/24 03:29
Potassium 4.7 mmol/L (3.5-5.1) 07/19/24 03:29
BUN 23 mg/dl (7-17) H 07/19/24 03:29
Creatinine 1.2 mg/dL (0.6-1.0) H 07/19/24 03:29
Glucose 164 mg/dl (70-99) H 07/19/24 03:29
Vital Signs and I&O:
Vital Signs
Temp Pulse Resp BP Pulse Ox
98.2 F 76 18 115/62 98
07/19/24 07:51 07/19/24 08:13 07/19/24 03:16 07/19/24 08:13 07/19/24 03:16
Vital Signs
Temp Pulse Resp BP Pulse Ox
98.2 F 76 18 115/62 98
07/19/24 07:51 07/19/24 08:13 07/19/24 03:16 07/19/24 08:13 07/19/24 03:16
Intake & Output
07/17/24 07/18/24 07/19/24 07/20/24
06:59 06:59 06:59 06:59
Intake Total 1460 / 1460
Output Total 100 / 100
Balance 1360 / 1360
Physical Exam
Physical Exam
NAD< AOx3
S1, S2, RRR
crackles 1/2 [address] up, no wheeze, non labored
SNTND Bsx4
R fem site scant drainage, soft, no HT
[2024-07-19 10:41] LABS: Glycohemoglobin (HgbA1c) 5.8 % (4.0-5.6)
--- NOTE | 2024-07-19 11:30 | W.DS.TRANS ---
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
-
Discharge Instructions:
Sleep Apnea Risk High
Discharge Diagnosis/Procedures AFib post ablation
Diet Low Cholesterol
Driving Restrictions No driving for 24 hours
Instructions: Atrial fibrillation
Heart Healthy Diet
Catheter ablation for the heart
Heart failure
Stand-Alone Forms: DC Instructions- Cath/EP Lab
Changes to Home Medications: Yes
Discharge Medications:
DC Medications w/original date entered in [facility]
atorvastatin 20 mg tablet (Lipitor) 20 mg PO QPM High Cholesterol 05/15/24
cholecalciferol (vitamin D3) 25 mcg (1,000 unit) tablet (Vitamin D3) 25 mcg PO QPM Supplement 05/15/24
empagliflozin 10 mg tablet (Jardiance) 10 mg PO DAILY diabetes 05/26/24
apixaban 5 mg tablet (Eliquis) 5 mg PO BID #60 tabs 05/28/24
albuterol sulfate 90 mcg/actuation aerosol inhaler 1 puff inhalation R Q4HPRN PRN sob/wheezing 06/09/24
duloxetine 60 mg capsule,delayed release 120 mg PO DAILY Depression 06/09/24
Probiotic 1 cap PO DAILY 07/18/24
amiodarone 200 mg tablet 200 mg PO DAILY 07/18/24
cyanocobalamin (vitamin B-12) 500 mcg tablet (Vitamin B-12) 500 mcg PO DAILY 07/18/24
folic acid 800 mcg tablet 0.8 mg PO DAILY 07/18/24
furosemide 40 mg tablet (Lasix) 40 mg PO DAILY 07/18/24
potassium chloride 20 mEq tablet,extended release 20 meq PO DAILY 07/18/24
tirzepatide 5 mg/0.5 mL subcutaneous pen injector (Mounjaro) 5 mg SC QWEEK 07/18/24
Home Medication Changes
Pending Results: No
--- NOTE | 2024-07-19 11:41 | CM ---
CM following for DC planning needs.
Met w/ patient at bedside to complete initial assessment.
Pt. resides alone in a private, 2 story [facility], [address]. She is functionally indep. w/ ADLs, mobility without the use of any assisted device.
Pt. has RX plan and uses [facility] in [place] for Rx needs.
Plan is for DC to home without needs.
Will cont. to follow as any needs may arise.
[2024-07-19 11:43] VITALS: BP 110/71
[2024-07-19] MEDS: NOVOLOG FLEXPEN-MODERATE RESISTANCE SC (12:47)
--- NOTE | 2024-07-19 12:54 | PTCARENOTE ---
Pt was ordered discharged to home. compliance monitor and iv int removed prior to leaving. Verbal and written discharge instructions given. Pt verbalized understanding.
== END 2024-07-19 12:50 | disposition home or self-care (01) ==
LOC: CATH 06:01
PROVIDERS: Nurse Practitioner Adult Health; ATTENDING PHYSICIAN Internal Medicine Cardiovascular Disease; FAMILY PHYSICIAN Family Medicine; OTHER PHYSICIAN Internal Medicine
DX: I48.0 Paroxysmal atrial fibrillation (principal); Z88.2 Allergy status to sulfonamides; E11.9 Type 2 diabetes mellitus without complications; E66.9 Obesity, unspecified; F32.A Depression, unspecified; E78.5 Hyperlipidemia, unspecified; I34.0 Nonrheumatic mitral (valve) insufficiency; Z79.84 Long term (current) use of oral hypoglycemic drugs; J45.909 Unspecified asthma, uncomplicated; Z87.891 Personal history of nicotine dependence; I77.810 Thoracic aortic ectasia; I50.33 Acute on chronic diastolic (congestive) heart failure; Z79.01 Long term (current) use of anticoagulants; Z79.899 Other long term (current) drug therapy; I44.4 Left anterior fascicular block; I31.39 Other pericardial effusion (noninflammatory); J98.4 Other disorders of lung; Z88.1 Allergy status to other antibiotic agents; Z98.890 Other specified postprocedural states
CPT/HCPCS: 93308; 93325; 93321; C1894; C1732; C1733; C1769; C1892; C1759; C1730; 80048; 82962; 83036; 83735; 85027; 85347; 86803; 86900; 86901; 93005; 93656; 93657; C1760; C1766

== ENCOUNTER → 2024-10-16 12:32 | Outpatient (REF) | payer MEDICARE, SELFPAY | LOC: RAD 12:32 | PROVIDERS: ATTENDING PHYSICIAN Family Medicine | DX: R05.1 Acute cough (principal) | CPT/HCPCS: 71046 ==

== ENCOUNTER → 2024-10-24 13:17 | Outpatient (REF) | payer MEDICARE, SELFPAY | LOC: RAD 13:17 | PROVIDERS: ATTENDING PHYSICIAN Family Medicine; FAMILY PHYSICIAN Internal Medicine Critical Care Medicine; REFERRING PHYSICIAN Internal Medicine Cardiovascular Disease | DX: F17.210 Nicotine dependence, cigarettes, uncomplicated (principal); J41.0 Simple chronic bronchitis; Z12.2 Encounter for screening for malignant neoplasm of respiratory organs | CPT/HCPCS: 71271 ==

== ENCOUNTER → 2025-06-17 11:11 | Outpatient (REF) | payer MEDICARE, SELFPAY | LOC: RAD 11:11 | PROVIDERS: ATTENDING PHYSICIAN Family Medicine | DX: R05.1 Acute cough (principal) | CPT/HCPCS: 71046 ==

== ENCOUNTER → 2025-07-10 09:18 | Outpatient (REF) | payer MEDICARE, SELFPAY | LOC: RCS 09:18 | PROVIDERS: ATTENDING PHYSICIAN Family Medicine | DX: R00.2 Palpitations (principal) | CPT/HCPCS: 93225; 93226 ==

== ENCOUNTER → 2025-08-04 12:42 | Outpatient (REF) | payer MEDICARE, SELFPAY | LOC: HWRCS 12:42 | PROVIDERS: ATTENDING PHYSICIAN Student in an Organized Health Care Education/Training Program; FAMILY PHYSICIAN Family Medicine | DX: I50.32 Chronic diastolic (congestive) heart failure (principal) | CPT/HCPCS: 93306 ==

== ENCOUNTER → 2025-08-12 14:18 | Outpatient (REF) | payer MEDICARE, SELFPAY | LOC: WDC 14:18 | PROVIDERS: ATTENDING PHYSICIAN Family Medicine | DX: Z78.0 Asymptomatic menopausal state (principal); Z12.31 Encounter for screening mammogram for malignant neoplasm of breast | CPT/HCPCS: 77063; 77067; 77080 ==

== ENCOUNTER → 2025-09-12 13:52 | Outpatient (REF) | payer MEDICARE, SELFPAY | LOC: RAD 13:52 | PROVIDERS: ATTENDING PHYSICIAN Family Medicine | DX: R05.1 Acute cough (principal) | CPT/HCPCS: 71046 ==